=== PATIENT | male | born 1935 | race Caucasian/White ===

== ENCOUNTER → 2019-03-26 | Outpatient (CLI) | payer OTHER ==
--- NOTE | 2019-03-26 14:07 | Diagnostic Imaging Report ---
INDICATION: Wheezing. TECHNIQUE: Frontal chest obtained at 12:44 p.m. FINDINGS: Heart is borderline in size. Mediastinal silhouette is unremarkable. There is some minimal infiltrate versus scarring in the right lung base. There is no pneumothorax or pleural fluid. IMPRESSION: Minimal infiltrate versus scarring in right lung base. We do not have prior studies for comparison. There is no definitive consolidation or pneumothorax or pleural fluid. Dictated by: Dictated on workstation # [id number]
--- NOTE | 2019-03-26 14:14 | Diagnostic Imaging Report ---
INDICATION: Left knee pain. AP, oblique, and lateral views of the left knee are obtained. FINDINGS: No fracture or acute bony abnormality is seen. There is some patellofemoral spurring and joint space narrowing. There is mild medial and lateral joint space narrowing. IMPRESSION: Degenerative findings of the left knee with no acute-appearing bony abnormality. Dictated by: Dictated on workstation # [id number]
--- NOTE | 2019-03-26 14:36 | Diagnostic Imaging Report ---
INDICATION: Fall with left hip pain. AP and oblique views of the left hip are obtained. FINDINGS: No fracture or acute bony abnormality is seen. There is severe osteoarthritic change of the left hip with severe joint space narrowing with izic-cf-giff contact, subchondral sclerosis, and femoral head deformity. IMPRESSION: Severe osteoarthritic change of left hip as described above. No acute abnormality. Dictated by: Dictated on workstation # [id number]
== END ==
LOC: RAD 12:10
PROVIDERS: ATTEND Family Medicine
DX: J44.9 Chronic obstructive pulmonary disease, unspecified (principal); M16.12 Unilateral primary osteoarthritis, left hip; M17.12 Unilateral primary osteoarthritis, left knee; W19.XXXA Unspecified fall, initial encounter
CPT/HCPCS: 71045; 73502; 73562

== ENCOUNTER → 2019-04-15 | Outpatient (CLI) | payer OTHER ==
--- NOTE | 2019-04-15 16:54 | Diagnostic Imaging Report ---
INDICATION: COPD and shortness of breath. TECHNIQUE/COMPARISON: PA and lateral films of the chest were obtained at 4:39 PM and compared to 03/26/2019. FINDINGS: The heart is top limits of normal in size. The mediastinal silhouette is unremarkable. The lungs show no focal infiltrate. There is no pneumothorax or pleural fluid. Chronic changes in the thoracic spine are noted. IMPRESSION: Borderline heart size with no acute process in the chest. No significant change from 03/26/2019. Dictated by: Dictated on workstation # [id number]
== END ==
LOC: RAD 16:14
PROVIDERS: ATTEND Family Medicine
DX: J44.9 Chronic obstructive pulmonary disease, unspecified (principal)
CPT/HCPCS: 71046

== ENCOUNTER 2019-04-25 15:26 | Emergency (ER) | payer MEDICARE, OTHER ==
[~2019-04-25] VITALS: Ht 175.3 cm; Wt 85.7 kg
--- NOTE | 2019-04-25 15:49 | ED Fall/Injury ---
General Stated Complaint: FELL Source: patient Exam Limitations: no limitations History of Present Illness Date Seen by Provider: Apr 25, 2019 Time Seen by Provider: 15:47 Initial Comments To ER from [facility] with reports of a fall. He reached up to grab something and fell. Struck the center of his forehead. No loss of consciousness, skin tear to the dorsal aspect left hand. He is on aspirin but no other antiplatelet or anticoagulant medications. Occurred: just prior to arrival Severity: moderate Associated Symptoms (Fall): Neck Pain Allergies and Home Medications Allergies Coded Allergies: No Known Drug Allergies (Unverified , 04/25/19) Patient Home Medication List Home Medication List Reviewed: Yes Review of Systems Review of Systems Constitutional: see HPI Eyes: No Symptoms Reported Ears, Nose, Mouth, Throat: no symptoms reported Respiratory: no symptoms reported Genitourinary: no symptoms reported Musculoskeletal: no symptoms reported Skin: no symptoms reported Psychiatric/Neurological: No Symptoms Reported Past Zmelend-Kyhwoz-Itdydr Hx Patient Social History Recent Foreign Travel: No Contact w/Someone Who Travel: No Physical Exam Vital Signs Vital Signs - First Documented 04/25/19 15:37 Temp 35.8 Pulse 74 Resp 15 B/P (MAP) 113/90 (98) Pulse Ox 97 O2 Delivery Nasal Cannula O2 Flow Rate 3.00 Capillary Refill : Height, Weight, BMI Height: '" Weight: lbs. oz. kg; BMI Method: General Appearance: WD/WN, no apparent distress HEENT: PERRL/EOMI, normal ENT inspection, other (abrasion to the center of his forehead, superficial skin tears to the dorsal knuckles left hand) Neck: non-tender, full range of motion Respiratory: lungs clear, normal breath sounds, no respiratory distress, no accessory muscle use Gastrointestinal: normal bowel sounds, non tender, soft Extremities: normal range of motion, non-tender Neurologic/Psychiatric: alert, normal mood/affect, oriented x 3 Skin: normal color, warm/dry Because of body habitus was unable to get a rigid cervical collar or a soft cervical collar to fit him, instead we rolled up towels and taped these in place. Meggan Coma Score Best Eye Response: (4) Open Spontaneously Best Verbal Response: (5) Oriented Best Motor Response: (6) Obeys Commands [place] Total: 15 Progress/Results/Core Measures Results/Orders My Orders Orders - TIAGO NOONAN APRN Ct Head/Cervical Spine Wo (04/25/19 15:43) Hand, Left, 3 Views (04/25/19 15:43) Vital Signs/I&O 04/25/19 04/25/19 15:37 18:33 Temp 35.8 Pulse 74 76 Resp 15 15 B/P (MAP) 113/90 (98) 129/62 (98) Pulse Ox 97 97 O2 Delivery Nasal Cannula Nasal Cannula O2 Flow Rate 3.00 3.00 Departure Communication (Admissions) Patient is also at [facility] and rehabilitation under skilled status, he has about 40 days left, patient's children are concerned about disposition once those days have . We'll write a consult for dialysis social worker to evaluate for permanent long-term placement. Spoke with the patient's nurse at the long-term, will write an order to continue physical therapy and occupational therapy as tolerated, up with assistance only--she states that he is already up with assistance only. We will have him follow-up with Dr. Carrasquillo in the upcoming weeks, he'll be sent home with an [place] collar which is in place currently. This decision was made after discussing with Dr. Carrasquillo the images, they were reviewed by him as well. He states that the anterior approcah for screw placement would be difficult given the patient's degree of degenerative changes in the neck. If anything surgical were to be done it would need to be a posterior occipito-cervical fusion wiht plate from the base of the skull to the C1 to C3 range. I discussed this with the patient, Dr. Carrasquillo advised that that procedure would need to be done at [facility] if the patient desired surgical repair. However the patient and his adult son at the bedside agree with just a semirigid collar and nonoperative management at this point. He denies any paresthesias tingling or numbness. States the pain in his neck is "not bad". Impression Primary Impression: Closed dens fracture Qualified Codes: S12.100A - Unspecified displaced fracture of second cervical vertebra, initial encounter for closed fracture Additional Impression: Skin abrasion Disposition: HOME, SELF-CARE Condition: Stable Departure-Patient Inst. Decision time for Depature: 17:28 Referrals: NO,LOCAL PHYSICIAN (PCP) Primary Care Physician Patient Instructions: Cervical Immobilizers Add. Discharge Instructions: 1. Wear the collar at all times until you follow-up with Dr. Carrasquillo and then wear the collar per his discretion. Call his office on Sunday to make an appointment to be seen in the upcoming few weeks whenever he can get you in (he is usually booked out many weeks which is oK)Address: Dr Jose Carrasquillo [facility], [address] [place] [address], [address] [place] [address] Hours: Closed ? Opens 8AM Mon Copy Copies To 1: MEE HAYNES PETER J APRN Apr 25, 2019 15:49
--- NOTE | 2019-04-25 16:26 | Diagnostic Imaging Report ---
INDICATION: Pain status post fall with injury. COMPARISON: None. FINDINGS: Three views of the left hand were obtained and show no fractures, dislocations, or other acute bony abnormalities. Moderate osteoarthritic changes are noted, particularly involving the first carpometacarpal joint space. Otherwise, joint spaces are maintained. The soft tissues appear unremarkable. No radiopaque foreign bodies are identified. IMPRESSION: Moderate osteoarthritic changes, but no evidence of acute fracture or dislocation of the left hand. Dictated by: Dictated on workstation # [id number]
--- NOTE | 2019-04-25 16:31 | Diagnostic Imaging Report ---
PROCEDURE: CT head and CT cervical spine without contrast. TECHNIQUE: Multiple contiguous axial images were obtained through the brain and cervical spine without the use of intravenous contrast. Sagittal and coronal reformations through the cervical spine were then performed. Auto Exposure Controls were utilized during the CT exam to meet ALARA standards for radiation dose reduction. INDICATION: Fall. Scalp contusion. Head and neck pain. COMPARISON: None. FINDINGS: CT head: No large acute territorial ischemia, mass, or hemorrhage. Chronic microvascular disease is seen in the periventricular and subcortical white matter. The ventricles and cortical sulci are prominent, consistent with generalized volume loss. The basilar cisterns are patent and unremarkable. The calvarium is intact. Retained secretions are seen in the maxillary sinuses. The mastoid air cells are well pneumatized. CT cervical spine: A fracture is visualized involving the base of the dens. There is approximately 30 degrees of angulation of the fracture fragment posteriorly into the spinal canal. No significant spinal canal stenosis is seen. No other fractures are visualized in the cervical spine. Multilevel degenerative changes are present in the cervical spine with marginal osteophytes, disc height loss and desiccation, and uncovertebral arthropathy. The soft tissues of the neck are unremarkable. The included lung apices are clear. IMPRESSION: 1. No hemorrhage or focal intra-axial mass. No CT evidence of large acute territorial ischemia. 2. Acute fracture involving the base of the dens, representing type II dens fracture. There is associated 30 degrees of posterior angulation of the fracture fragment without significant spinal canal stenosis. 3. Chronic microvascular disease with generalized parenchymal volume loss. 4. Multilevel degenerative changes in the cervical spine. Findings were discussed with Pedro Christianson at 4:27 PM on 04/25/[address] Loy Ortiz. Dictated by: Dictated on workstation # [id number]
[2019-04-25 18:33] VITALS: BP 129/62
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
== END 2019-04-25 18:33 | disposition home or self-care (01) ==
LOC: EDUNIT# 15:26 → ER 15:27
DX: S12.112A Nondisplaced Type II dens fracture, initial encounter for closed fracture (principal); S61.412A Laceration without foreign body of left hand, initial encounter; S00.81XA Abrasion of other part of head, initial encounter; R40.2142 Coma scale, eyes open, spontaneous, at arrival to emergency department; R40.2252 Coma scale, best verbal response, oriented, at arrival to emergency department; R40.2362 Coma scale, best motor response, obeys commands, at arrival to emergency department; W19.XXXA Unspecified fall, initial encounter
CPT/HCPCS: 70450; 72125; 73130

== ENCOUNTER 2019-05-30 00:44 | Inpatient (IN) | payer MEDICARE, OTHER ==
[2019-05-30] VITALS (38 sets, daily range): BP systolic 81–134; BP diastolic 34–78
[~2019-05-30] VITALS: Ht 175 cm; Wt 80.1 kg
--- NOTE | 2019-05-30 00:45 | NUR ---
PT TO E.D. BY EMS C/O INCREASED SOA TONIGHT. STARTED ON AZITHROMYCIN APPROX. 3 DAYS AGO WITHOUT IMPROVEMENT. PT WITH NOTED INCREASED WORK OF BREATHING. ERP. AT BEDSIDE.
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
[2019-05-30] MEDS ORDERED: NS IV 1000 ML 1,000 ML IV SCH (00:54)
[2019-05-30] MEDS ORDERED: NS IV 500 ML 500 ML IV ONE (00:54)
[2019-05-30] MEDS ORDERED: VANCOMYCIN INJECTION 1,000 MG in NS (IVPB) 250 ML IV ONE (01:00)
[2019-05-30] MEDS ORDERED: CEFEPIME INJECTION 1,000 MG in WATER (STERILE) FOR INJECTION 10 ML IV ONE (01:00)
[2019-05-30] MEDS ORDERED: RT-ALBUTEROL/IPRATROPIUM 3 ML (DUONEB) VIAL INH ONE (01:00)
[2019-05-30 01:10] LABS: ABG BASE EXCESS 7.7 MMOL/L (-2.5-2.5); ABG OXYGEN SATURATION 98 % (94-100); ABG PO2 117 MMHG (79-93); ABG TCO2 35.8 MMOL/L (21.0-31.0)
[2019-05-30] MEDS: NS IV 1000 ML 1,000 ML IV SCH ×5 (01:10→17:39)
[2019-05-30 01:14] LABS: ABG PCO2 73 MMHG (35-45); ALLENS TEST YES-POS; INSPIRED O2 3L; VENTILATOR NO
--- NOTE | 2019-05-30 01:14 | ED Respiratory ---
General Stated Complaint: RESPIRATORY DISTRESS & FEVER Source: patient, EMS, [facility] records Exam Limitations: clinical condition History of Present Illness Date Seen by Provider: May 30, 2019 Time Seen by Provider: 00:53 Initial Comments Patient presents to ER via EMS from [facility] with chief complaint of about a week of shortness of breath, increased worker breathing. He was seen by primary care recently and started on azithromycin. He is not on ster oids. He has a history of COPD oxygen dependent on 2-3 L per nasal cannula. Oxygen sats were in the 90s per EMS. Unknown if he's had a chest x-ray or labs. One month ago he had a fall resulting in a dens fracture and was referred to neurosurgery but was not a candidate for surgical repair apparently. He refuses to wear the collar or soft collar. Nursing staff tonight reports that while doing there checks he had increased work of breathing as well as a fever tonight of 100.3 which was negative. Unknown if he had any specific testing at the time he was diagnosed with bronchitis. Nursing staff also reports he had a cough with yellow productive sputum. He said every few months she develops similar symptoms. Typically treated outpatient. Allergies and Home Medications Allergies Coded Allergies: No Known Drug Allergies (Unverified , 04/25/19) Patient Home Medication List Home Medication List Reviewed: Yes Review of Systems Review of Systems Constitutional: chills, fever, malaise EENTM: No ear discharge, No ear pain Respiratory: cough, phlegm, short of breath, wheezing Cardiovascular: No chest pain, No edema, No palpitations Gastrointestinal: No abdominal pain, No nausea, No vomiting Genitourinary: No discharge, No dysuria Musculoskeletal: No back pain, No joint pain Skin: No pruritus, No rash Psychiatric/Neurological: Denies Headache, Denies Numbness All Other Systems Reviewed Negative Unless Noted: Yes Past Tumcddk-Qypern-Bohtqi Hx Patient Social History Alcohol Use: Denies Use Recreational Drug Use: No Smoking Status: Never a Smoker Recent Hopitalizations: No Immunizations Up To Date Tetanus Booster (TDap): More than 5yrs Seasonal Allergies Seasonal Allergies: No Past Medical History Surgeries: Yes (skin cancer removed from lip) Respiratory: Yes COPD Cardiac: Yes Hypertension Neurological: No Genitourinary: Yes Renal Failure Gastrointestinal: Yes Abdominal Hernia Musculoskeletal: Yes (osteroarthitis, spinal stenosis) Chronic Back Pain Endocrine: No HEENT: Yes Hearing Impairment: Hard of Hearing Cancer: Yes Skin Did You Recieve Any Treatments: Yes What Type of Treatment Did You: Surgical Intervention Psychosocial: No Physical Exam Vital Signs - First Documented 05/30/19 00:45 Temp 38.4 Pulse 96 Resp 26 B/P (MAP) 111/67 (82) Pulse Ox 95 O2 Delivery Nasal Cannula O2 Flow Rate 3.00 Capillary Refill : Height: '" Weight: lbs. oz. kg; 27.00 BMI Method: General Appearance: moderate distress, other (disheveled) Eyes: Bilateral Eye PERRL, Bilateral Eye EOMI, Bilateral Eye Other (Bilateral mattering mild) HEENT: PERRL/EOMI, normal ENT inspection, TMs normal, other (Dry oral mucosa) Neck: non-tender, full range of motion, normal inspection Respiratory: chest non-tender, respiratory distress (Moderate with increased worker breathing), decreased breath sounds, accessory muscle use ([id number]) Cardiovascular: regular rate, rhythm, no edema, no murmur, tachycardia Gastrointestinal: normal bowel sounds, non tender, soft, other (Ventral hernia) Extremities: normal range of motion, normal inspection, no pedal edema, normal capillary refill Neurologic/Psychiatric: no motor/sensory deficits, alert, normal mood/affect, other (Oriented to person) Skin: normal color, warm/dry Focused Exam Lactate Level 05/30/19 00:50: Lactic Acid Level 0.79 Lactic Acid Level Laboratory Tests Test 05/30/19 00:50 Lactic Acid Level 0.79 MMOL/L (0.50-2.00) Procedures/Interventions Lumen: triple Central Line Procedure: betadine prep (chlorhexidine), sterile drapes applied, sterile dressing applied Position: internal jugular (R) Anesthesia: Lidocaine (1% without lidocaine 3 cc) Volume Anesthetic (ccs): 3 Complications: none Post Position: sutured, good blood return, position confirmed w/ CXR Site was cleaned thoroughly using chlorhexidine and draped in usual sterile fashion. Everybody is wearing appropriate sterile gown, gloves, headgear, face mask. Using ultrasound guidance we were able to easily introducer needle into his right IJ which was plump. We got good blood return and passed a guidewire easily on first attempt. Query made a small dary in the skin using the supplied 11 blades. We removed the needle and placed the dilator over the guidewire and then removed dilator. We then ran the central lumen of the triple lumen catheter over the guidewire had previously been flushed with sterile saline. We removed the guidewire stitched in place at about 14 cm and applied the sterile dressing from the kit. Patient tolerated procedure well. Minimal blood loss. Reason for Intubation: REsp fail CO2 and O2 Date of ETT Placement: May 30, 2019 Time of ETT Placement: 02:16 Intubation Method: orotracheal Tube Size: 8.0 Medications: Etomidate (20 mg), Rocuronium (50 mg) Positive End Tide CO2: Yes Breath Sounds after Intubation: bilateral-equal Intubation Complications: no complications Post Intubation Xray: Yes appears low. Subsequent x-ray in good position We explained the reasoning for intubation after attempting to treat him with BiPAP unsuccessfully. Patient acknowledged by nodding his head yes. He had a ron nce to speak briefly his over the phone. We then push etomidate followed by rocuronium. We have suctioned his oropharynx and then using a cane vision and an 8.0 ET tube placed the ET tube across the vocal cords on first attempt. We inflated the bulb and using a bag valve mask his exhalation and the tube as well as change the colorimetric paper. Patient's oxygen sats were 97% when we initiated intubation and 98% after intubation. Bilateral, symmetric breath sounds were heard over both lungs and no breath sounds were heard over the epigastric region. Patient tolerated procedure well. Propofol was initiated. ABG was ordered for 30 minutes later. Initial chest x-ray demonstrated the radiopaque line of the ET tube was very close the juan manuel so we redrew it from 23 at the gumline to 21 cm. Repeat chest x-ray then demonstrated 2 to 3 cm above the juan manuel which was good position. Progress/Results/Core Measures Suspected Sepsis SIRS Temperature: Pulse: Respiratory Rate: Laboratory Tests 05/30/19 00:50: White Blood Count 14.3H Blood Pressure / Mean: 05/30/19 00:50: Lactic Acid Level 0.79 Laboratory Tests 05/30/19 00:50: Creatinine 1.56H, INR Comment 1.4, Platelet Count 419H, Total Bilirubin 0.4 Results/Orders Lab Results Laboratory Tests Test 4/17/20 00:50 05/30/19 01:03 05/30/19 01:45 05/30/19 02:48 Range/Units White Blood Count 14.3 H 4.3-11.0 10^3/uL Red Blood Count 3.24 L 4.35-5.85 10^6/uL Hemoglobin 9.1 L 13.3-17.7 G/DL Hematocrit 30 L 40-54 % Mean Corpuscular Volume 91 80-99 FL Mean Corpuscular Hemoglobin 28 25-34 PG Mean Corpuscular Hemoglobin Concent 31 L 32-36 G/DL Red Cell Distribution Width 14.9 H 10.0-14.5 % Platelet Count 419 H 130-400 10^3/uL Mean Platelet Volume 9.8 7.4-10.4 FL Neutrophils (%) (Auto) 75 42-75 % Lymphocytes (%) (Auto) 11 L 12-44 % Monocytes (%) (Auto) 12 0-12 % Eosinophils (%) (Auto) 2 0-10 % Basophils (%) (Auto) 0 0-10 % Neutrophils # (Auto) 10.7 H 1.8-7.8 X 10^3 Lymphocytes # (Auto) 1.5 1.0-4.0 X 10^3 Monocytes # (Auto) 1.7 H 0.0-1.0 X 10^3 Eosinophils # (Auto) 0.3 0.0-0.3 10^3/uL Basophils # (Auto) 0.0 0.0-0.1 10^3/uL Erythrocyte Sedimentation Rate 35 H 0-30 MM/HR Prothrombin Time 17.3 H 12.2-14.7 SEC INR Comment 1.4 0.8-1.4 Activated Partial Thromboplast Time 35 24-35 SEC D-Dimer 3.82 H 0.00-0.49 UG/ML Blood Gas Puncture Site LEFT RADIAL RIGHT RADIAL Blood Gas Patient Temperature 38.6 38 Arterial Blood pH 7.30 *L 7.26 *L 7.37-7.43 Arterial Blood Partial Pressure CO2 73 *H 72 *H 35-45 MMHG Arterial Blood Partial Pressure O2 117 H 39 *L 79-93 MMHG Arterial Blood HCO3 34 H 31 H 23-27 MMOL/L Arterial Blood Total CO2 35.8 H 32.8 H 21.0-31.0 MMOL/L Arterial Blood Oxygen Saturation 98 51 L 94-100 % Arterial Blood Base Excess 7.7 H 4.3 H -2.5-2.5 MMOL/L Butch Test YES-POS P Blood Gas Ventilator Setting NO YES Blood Gas Inspired Oxygen 3L 3L Sodium Level 136 135-145 MMOL/L Potassium Level 5.4 H 3.6-5.0 MMOL/L Chloride Level 96 L 98-107 MMOL/L Carbon Dioxide Level 30 21-32 MMOL/L Anion Gap 10 5-14 MMOL/L Blood Urea Nitrogen 51 H 7-18 MG/DL Creatinine 1.56 H 0.60-1.30 MG/DL Estimat Glomerular Filtration Rate 43 BUN/Creatinine Ratio 33 Glucose Level 103 70-105 MG/DL Lactic Acid Level 0.79 0.50-2.00 MMOL/L Calcium Level 9.0 8.5-10.1 MG/DL Corrected Calcium 10.0 8.5-10.1 MG/DL Total Bilirubin 0.4 0.1-1.0 MG/DL Aspartate Amino Transf (AST/SGOT) 38 H 5-34 U/L Alanine Aminotransferase (ALT/SGPT) 26 0-55 U/L Alkaline Phosphatase 69 40-136 U/L Lactate Dehydrogenase 211 125-220 U/L C-Reactive Protein High Sensitivity 23.12 H 0.00-0.50 MG/DL B-Type Natriuretic Peptide 167.3 H <100.0 PG/ML Total Protein 5.8 L 6.4-8.2 GM/DL Albumin 2.8 L 3.2-4.5 GM/DL Procalcitonin 0.32 H <0.10 NG/ML Urine Color YELLOW Urine Clarity CLEAR Urine pH 5.0 5-9 Urine Specific [place] 1.020 1.016-1.022 Urine Protein NEGATIVE NEGATIVE Urine Glucose (UA) NEGATIVE NEGATIVE Urine Ketones NEGATIVE NEGATIVE Urine Nitrite NEGATIVE NEGATIVE Urine Bilirubin NEGATIVE NEGATIVE Urine Urobilinogen 1.0 < = 1.0 MG/DL Urine Leukocyte Esterase NEGATIVE NEGATIVE Urine RBC (Auto) NEGATIVE NEGATIVE Urine RBC NONE /HPF Urine WBC NONE /HPF Urine Squamous Epithelial Cells NONE /HPF Urine Crystals NONE /LPF Urine Bacteria NEGATIVE /HPF Urine Casts PRESENT /LPF Urine Hyaline Casts 2-5 H /LPF Urine Mucus LARGE H /LPF Urine Culture Indicated CULTURE PENDING Test 05/30/19 02:52 Range/Units Blood Gas Puncture Site LEFT RADIAL Blood Gas Patient Temperature 38 Arterial Blood pH 7.32 *L 7.37-7.43 Arterial Blood Partial Pressure CO2 54 H 35-45 MMHG Arterial Blood Partial Pressure O2 87 79-93 MMHG Arterial Blood HCO3 27 23-27 MMOL/L Arterial Blood Total CO2 28.2 21.0-31.0 MMOL/L Arterial Blood Oxygen Saturation 95 94-100 % Arterial Blood Base Excess 1.4 -2.5-2.5 MMOL/L Butch Test P Blood Gas Ventilator Setting YES Blood Gas Inspired Oxygen 50% Micro Results Microbiology 05/30/19 Influenza Types A,B Antigen (LEANN) - Final, Complete My Orders Orders - BRIGETTE MALHOTRA Cbc With Automated Diff (05/30/19 00:54) Comprehensive Metabolic Panel (05/30/19 00:54) Blood Culture (05/30/19 00:54) Sputum Culture (05/30/19 00:54) Urinalysis (05/30/19 00:54) Urine Culture (05/30/19 00:54) Protime With Inr (05/30/19 00:54) Partial Thromboplastin Time (05/30/19 00:54) Chest 1 View, Ap/Pa Only (05/30/19 00:54) Ed Iv/Invasive Line Start (05/30/19 00:54) Ed Iv/Invasive Line Start (05/30/19 00:54) Vital Signs Adult Sepsis Patie Q15M (05/30/19 00:54) O2 (05/30/19 00:54) Remove Rings In Anticipation O (05/30/19 00:54) Lactic Acid Analyzer (05/30/19 00:54) Influenza A And B Antigens (05/30/19 00:54) Ns Iv 1000 Ml (Sodium Chloride 0.9%) (05/30/19 00:54) Cefepime Injection (Maxipime Injection) (05/30/19 01:00) Vancomycin Injection (Vancomycin Injecti (05/30/19 01:00) Vancomycin Injection (Vancomycin Injecti (05/30/19 02:00) Ed Iv/Invasive Line Start (05/30/19 00:54) Ns Iv 500 Ml (Sodium Chloride 0.9%) (05/30/19 00:54) Ns Iv 1000 Ml (Sodium Chloride 0.9%) (05/30/19 00:54) Albuterol/Ipra Inhalation Soln (Duoneb I (05/30/19 01:00) Svn Small Volume Nebulizer (05/30/19 00:54) Arterial Blood Gas (05/30/19 00:54) Bipap (Bilevel) Set Up (05/30/19 00:54) Fibrin Degradation Products (05/30/19 00:54) Procalcitonin (Pct) (05/30/19 00:54) Hs C Reactive Protein (05/30/19 00:54) Erythrocyte Sedimentation Rate (05/30/19 00:54) LDH (05/30/19 00:54) Coronavirus Sars-Cov-2 So 2019 (05/30/19 00:54) Covid-19 Suspect Update (05/30/19 00:54) Ct Angio Chest W (05/30/19 01:29) BNP (05/30/19 01:34) Arterial Blood Gas (05/30/19 01:53) Propofol Drip (Icu) (Diprivan Drip (Icu) (05/30/19 01:59) Arterial Blood Gas (05/30/19 02:51) Propofol Drip (Icu) (Diprivan Drip (Icu) (05/30/19 03:27) Medications Given in ED Current Medications Medications Dose Ordered Sig/Batool Route Start Time Stop Time Status Last Admin Dose Admin Cefepime HCl 1000 mg/Sterile Water 10 ml @ 200 mls/hr ONCE ONCE IV 05/30/19 01:00 05/30/19 01:03 DC 05/30/19 01:10 200 MLS/HR Propofol 100 ml @ ud STK-MED ONCE IV 05/30/19 01:59 05/30/19 02:07 DC 05/30/19 02:20 8.2 MLS/HR Sodium Chloride 500 ml @ 0 mls/hr Q0M ONCE IV 05/30/19 00:54 05/30/19 01:03 DC 05/30/19 02:15 0 MLS/HR Vancomycin HCl 750 mg/Sodium Chloride 250 ml @ 250 mls/hr ONCE ONCE IV 05/30/19 02:00 05/30/19 02:59 DC 05/30/19 02:15 250 MLS/HR Vancomycin HCl 1000 mg/Sodium Chloride 250 ml @ 250 mls/hr ONCE ONCE IV 05/30/19 01:00 05/30/19 01:59 DC 05/30/19 01:15 250 MLS/HR Vital Signs/I&O 05/30/19 05/30/19 05/30/19 05/30/19 00:45 00:45 01:00 01:15 Temp 38.4 Pulse 96 96 96 Resp 26 24 24 B/P (MAP) 111/67 (82) 108/54 (72) 90/53 (65) Pulse Ox 95 95 96 96 O2 Delivery Nasal Cannula Nasal Cannula Nasal Cannula Nasal Cannula O2 Flow Rate 3.00 3.00 3.00 3.00 05/30/19 05/30/19 05/30/19 05/30/19 01:30 01:45 02:05 02:15 Temp 38.0 Pulse 111 101 98 100 Resp 22 24 22 24 B/P (MAP) 109/78 (88) 85/61 (69) 92/67 (75) 103/54 (70) Pulse Ox 95 96 98 97 05/30/19 05/30/19 05/30/19 05/30/19 02:20 02:30 02:45 03:00 Temp 37.6 Pulse 107 100 105 108 Resp 24 24 24 B/P (MAP) 119/57 119/57 (77) 123/69 (87) 134/68 (90) Pulse Ox 99 100 99 O2 Delivery Mechanical Ventilator Mechanical Ventilator Mechanical Ventilator O2 Flow Rate 50.00 50.00 05/30/19 03:13 Temp 37.9 Pulse 108 Resp 24 B/P (MAP) 134/68 Pulse Ox 99 O2 Delivery Mechanical Ventilator Capillary Refill : Progress Note : Time: 01:17 Progress Note Septic workup, COVID-19 influenza testing. 2500 cc for 30 mL/kg. Put him on BiPAP 5/15. ABG obtained shows CO2 of 72 and pH of 7.3. Plan to recheck in about 30 minutes and if it's not improving. We may consider intubation. Diagnostic Imaging Diagonstic Imaging: Xray Plain Films/CT/US/NM/MRI: chest Comments Patchy infiltrates bilateral. More concentrated infiltrate right lower lobe. Reviewed: Reviewed by Me Diagonstic Imaging: Xray Plain Films/CT/US/NM/MRI: chest Comments Interval placement of central catheter with the distal tip terminating and over the shadow of the superior vena cava just proximal to the right atria in good p osition. Difficult to see the ET tube but it does appear to be close to the juan manuel and needs withdrawn about 2-3 cm. Reviewed: Reviewed by Me Diagonstic Imaging: Xray Plain Films/CT/US/NM/MRI: chest Comments Repeat chest x-ray shows ET tube in good position 237 m above the juan manuel. Reviewed: Reviewed by Me Diagonstic Imaging: CT (angiogram) Plain Films/CT/US/NM/MRI: chest Reviewed: Reviewed by Me Critical Care Note Critical Care Start Time: 01:50 Stop Time: 03:00 Total Time (minutes) 70m Progress Patient acute respiratory distress. Initial ABG shows respiratory acidosis. We attempted valiantly to use BiPAP with high pressure and were unsuccessful in improving his CO2 and the patient continued wear himself outside for about 30 minute trial we initiated and intubation. Patient tolerated intubation well his oxygen demand improved and he produced a better ABG within just 30 minutes. Patient was then transferred to CT angiogram and from there to the ICU. Departure Communication (Admissions) Time/Spoke to Admitting Phy: 03:51 Discussed the case with Dr. Alvarenga and she agrees with plan. Impression Primary Impression: Acute respiratory failure with hypoxia and hypercapnia Additional Impressions: Atypical pneumonia COPD with exacerbation Disposition: ADMITTED INPATIENT Condition: Critical Admissions Decision to Admit Reason: Admit from ER (General) Decision to Admit/Date: May 30, 2019 Time/Decision to Admit Time: 01:19 Departure-Patient Inst. Referrals: MEE HAYNES DO (PCP/Family) Primary Care Physician BRIGETTE MALHOTRA May 30, 2019 01:14
[2019-05-30 01:15] LABS: BASOPHILS % (AUTO) 0 % (0-10); EOSINOPHILS # (AUTO) 0.3 10^3/uL (0.0-0.3); EOSINOPHILS % (AUTO) 2 % (0-10); HEMATOCRIT 30 % (40-54); HEMOGLOBIN 9.1 G/DL (13.3-17.7); LYMPHOCYTES # (AUTO) 1.5 X 10^3 (1.0-4.0); LYMPHOCYTES % (AUTO) 11 % (12-44); MEAN CORPUSCULAR HEMOGLOBIN 28 PG (25-34); MEAN CORPUSCULAR HGB CONC 31 G/DL (32-36); MEAN CORPUSCULAR VOLUME 91 FL (80-99); MEAN PLATELET VOLUME 9.8 FL (7.4-10.4); MONOCYTES # (AUTO) 1.7 X 10^3 (0.0-1.0); MONOCYTES % (AUTO) 12 % (0-12); NEUTROPHILS # (AUTO) 10.7 X 10^3 (1.8-7.8); NEUTROPHILS % (AUTO) 75 % (42-75); PATIENT TEMP 38.6; PLATELET COUNT 419 10^3/uL (130-400); RED CELL DISTRIBUTION WIDTH 14.9 % (10.0-14.5); WHITE BLOOD COUNT 14.3 10^3/uL (4.3-11.0)
[2019-05-30 01:18] LABS: ALBUMIN 2.8 GM/DL (3.2-4.5); POTASSIUM 5.4 MMOL/L (3.6-5.0)
[2019-05-30 01:21] LABS: TOTAL PROTEIN 5.8 GM/DL (6.4-8.2)
[2019-05-30 01:22] LABS: BILIRUBIN,TOTAL 0.4 MG/DL (0.1-1.0)
[2019-05-30 01:24] LABS: CREATININE SERUM 1.56 MG/DL (0.60-1.30)
[2019-05-30 01:38] LABS: FIBRIN DEGRADATION PRODUCTS 3.82 UG/ML (0.00-0.49); INR 1.4 (0.8-1.4); PROTHROMBIN TIME PATIENT 17.3 SEC (12.2-14.7)
[2019-05-30 01:41] LABS: ERYTHROCYTE SEDIMENTATION RATE 35 MM/HR (0-30)
[2019-05-30] MEDS ORDERED: PROPOFOL DRIP (ICU) 100 ML IV ONE ×2 (01:59→03:27)
[2019-05-30] MEDS ORDERED: VANCOMYCIN INJECTION 750 MG in NS (IVPB) 250 ML IV ONE (02:00)
--- NOTE | 2019-05-30 02:00 | NUR ---
DECISION TO INTUBATE MADE BY ERP. DR MALHOTRA SPOKE WITH PT ET. HIS ON PHONE.
[2019-05-30 02:04] LABS: ABG BASE EXCESS 4.3 MMOL/L (-2.5-2.5); ABG OXYGEN SATURATION 51 % (94-100); ABG TCO2 32.8 MMOL/L (21.0-31.0)
[2019-05-30 02:06] LABS: ABG PH 7.26 (7.37-7.43)
[2019-05-30 02:08] LABS: ABG PCO2 72 MMHG (35-45); ABG PO2 39 MMHG (79-93)
[2019-05-30 02:09] LABS: ALLENS TEST P; INSPIRED O2 3L; VENTILATOR YES
[2019-05-30 02:10] LABS: PATIENT TEMP 38
--- NOTE | 2019-05-30 02:15 | NUR ---
20MG ETOMIDATE GIVEN 0216-50MG SUCCINYLCHOLINE GIVEN. 0219- PT INTUBATED BY ERP. 8.0 OETT 23CM AT GUMS X 1 ATTEMPT. + BREATH SOUNDS BILATERALLY, COLOR CHANGE ON CO2 DETECTOR. 0224- OG TUBE PLACED. 0248- RIJTL PLACED
[2019-05-30 03:00] LABS: ABG BASE EXCESS 1.4 MMOL/L (-2.5-2.5); ABG OXYGEN SATURATION 95 % (94-100); ABG PCO2 54 MMHG (35-45); ABG PO2 87 MMHG (79-93); ABG TCO2 28.2 MMOL/L (21.0-31.0)
[2019-05-30 03:02] LABS: ABG PH 7.32 (7.37-7.43)
[2019-05-30 03:03] LABS: BILIRUBIN,URINE NEGATIVE (NEGATIVE); CLARITY,URINE CLEAR; COLOR,URINE YELLOW; GLUCOSE, URINE (UA) NEGATIVE (NEGATIVE); KETONES,URINE NEGATIVE (NEGATIVE); LEUKOCYTE ESTERASE ,URINE NEGATIVE (NEGATIVE); NITRITE,URINE NEGATIVE (NEGATIVE); PROTEIN,URINE NEGATIVE (NEGATIVE)
[2019-05-30 03:03] LABS: ALLENS TEST P
[2019-05-30 03:04] LABS: INSPIRED O2 50%; PATIENT TEMP 38; VENTILATOR YES
[2019-05-30 03:12] LABS: BACTERIA,URINE NEGATIVE /HPF
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
[2019-05-30] MEDS ORDERED: ACETAMINOPHEN 325 MG TABLET PO PRN (04:30)
[2019-05-30] MEDS ORDERED: ONDANSETRON 4 MG/2 ML (SDV) Z0FRAN IV PRN (04:30)
[2019-05-30] MEDS ORDERED: PROPOFOL DRIP (ICU) 100 ML IV SCH (04:30)
[2019-05-30] MEDS ORDERED: EPINEPHrine 1 MG INJECTION 2 MG in NS (IVPB) 250 ML IV SCH (04:30)
[2019-05-30] MEDS ORDERED: IOHEXOL 350 MG/ML 100 ML (OMNIPAQUE 350) VIAL IV ONE (04:45)
--- NOTE | 2019-05-30 04:52 | NUR ---
RT IN COVID ED FROM 44 TO 314 WHEN PT WAS MOVED TO CT WITHOUT INCIDENT, PT THEN TAKEN TO CU 5, PLACED ON VENT
[2019-05-30 05:16] LABS: PHOSPHORUS 4.5 MG/DL (2.3-4.7)
[2019-05-30 05:18] LABS: MAGNESIUM 2.1 MG/DL (1.6-2.4)
[2019-05-30] MEDS: POTASSIUM CL 10MEQ/50ML IVPB 50 ML IV SCH (05:37)
[2019-05-30] MEDS: MAGNESIUM 1 GM/100 ML IVPB 100 ML IV SCH (05:37)
[2019-05-30] MEDS: KCL 20 MEQ TAB (K-DUR) PO SCH (05:37)
[2019-05-30] MEDS: VASOPRESSIN INJECTION 20 UNIT in NORMAL SALINE 100 ML IV SCH ×3 (05:37→21:56)
[2019-05-30] MEDS ORDERED: inSUlin ASPART (NovoLOG) 1 UNIT/0.01 ML (CHARGE PER UNIT) SQ PRN (06:00)
[2019-05-30] MEDS: NOREPINEPHRINE 4 MG/250 ML 250 ML IV SCH ×3 (06:17→19:53)
--- NOTE | 2019-05-30 06:38 | Pulmonary Consultation ---
History of Present Illness History of Present Illness Date Seen by Provider: May 30, 2019 Time Seen by Provider: 06:33 Date of Admission History of Present Illness 83yo presented from ECF secondary to worsening SOB Allergies and Home Medications Allergies Coded Allergies: No Known Drug Allergies (Unverified , 04/25/19) Past Vbryctl-Ueqles-Twopbh Hx Patient Social History Alcohol Use: Denies Use Recreational Drug Use: No Smoking Status: Never a Smoker Recent Foreign Travel: No Contact w/Someone Who Travel: No Recent Infectious Disease Expo: No Recent Hopitalizations: No Physical Abuse: No Sexual Abuse: No Mistreated: No Fear: No Immunizations Up To Date Tetanus Booster (TDap): More than 5yrs Seasonal Allergies Seasonal Allergies: No Past Medical History Surgeries: Yes (skin cancer removed from lip) Respiratory: Yes COPD Cardiac: Yes Hypertension Neurological: No Genitourinary: Yes Renal Failure Gastrointestinal: Yes Abdominal Hernia Musculoskeletal: Yes (osteroarthitis, spinal stenosis) Chronic Back Pain Endocrine: No HEENT: Yes Hearing Impairment: Hard of Hearing Cancer: Yes Skin Did You Recieve Any Treatments: Yes What Type of Treatment Did You: Surgical Intervention Psychosocial: No Integumentary: No Sepsis Event Evaluation Height, Weight, BMI Height: '" Weight: lbs. oz. kg; 27.00 BMI Method: Exam Exam Vital Signs Date Time Temp Pulse Resp B/P (MAP) Pulse Ox O2 Delivery O2 Flow Rate FiO2 05/30/19 06:17 86 108/54 05/30/19 05:45 83 24 81/44 (56) 100 Mechanical Ventilator 70.00 05/30/19 05:15 88 20 83/72 (76) 98 Mechanical Ventilator 70.00 05/30/19 04:45 90 18 102/34 (56) 96 Mechanical Ventilator 70.00 05/30/19 04:43 92 96 100.00 05/30/19 04:30 95 19 84/76 (79) 100 Mechanical Ventilator 70.00 05/30/19 04:30 93 136/67 05/30/19 04:15 98 24 99/62 (74) 98 Mechanical Ventilator 70.00 05/30/19 04:00 99 20 118/54 (75) 100 Mechanical Ventilator 70.00 05/30/19 03:42 100 05/30/19 03:13 37.9 108 24 134/68 99 Mechanical Ventilator 05/30/19 03:00 37.6 108 24 134/68 (90) 99 Mechanical Ventilator 05/30/19 02:45 105 24 123/69 (87) 100 Mechanical Ventilator 50.00 05/30/19 02:30 100 24 119/57 (77) 99 Mechanical Ventilator 50.00 05/30/19 02:20 107 119/57 05/30/19 02:15 100 24 103/54 (70) 97 05/30/19 02:15 105 44 96 60 05/30/19 02:05 98 22 92/67 (75) 98 05/30/19 01:45 38.0 101 24 85/61 (69) 96 05/30/19 01:30 111 22 109/78 (88) 95 05/30/19 01:15 96 24 90/53 (65) 96 Nasal Cannula 3.00 05/30/19 01:00 96 24 108/54 (72) 96 Nasal Cannula 3.00 05/30/19 00:45 38.4 96 26 111/67 (82) 95 Nasal Cannula 3.00 05/30/19 00:45 95 Nasal Cannula 3.00 I & O 05/30/19 07:00 Intake Total 3010 ml Output Total 325 ml Balance 2685 ml Height & Weight Height: '" Weight: lbs. oz. kg; 27.00 BMI Method: Capillary Refill: Less Than 3 Seconds Gastrointestinal: normal bowel sounds, non tender, soft, other (Ventral hernia) Results Lab Laboratory Tests 05/30/19 00:50 Assessment/Plan Assessment/Plan Acute respiratory failure with pneumonia with Severe sepsis - question of aspiration -Change Abx to Vanco, Zosyn and azithromycin d/c cefepime -Burnett cultures pending -influenza is negative -Check RVP -COVID is pending Acute renal failure -IVF -monitor Hypotension -Currently on Levophed -Give another liter bolus of LR Dehydration -IVF Anemia -Monitor KAILEY FROST DO May 30, 2019 06:38
[2019-05-30] MEDS ORDERED: CEFEPIME INJECTION 1,000 MG in WATER (STERILE) FOR INJECTION 10 ML IV SCH (07:00)
[2019-05-30] MEDS ORDERED: ETOMIDATE IV SOLN 20 MG/10 ML VIAL IV ONE (07:07)
[2019-05-30] MEDS ORDERED: ROCURONIUM 10 MG/ML 5 ML SYRINGE IV ONE (07:07)
[2019-05-30] MEDS ORDERED: LACTATED RINGERS 1,000 ML IV SCH (07:15)
--- NOTE | 2019-05-30 07:20 | Diagnostic Imaging Report ---
Indication: Respiratory distress. Compared: 05/30/2019. Findings: Bilateral micronodular pulmonary infiltrates showed no real change. There are small amounts of pleural fluid not obviously changed ET tube is above the juan manuel, some basilar atelectasis. Right IJ at the SVC, OG catheter goes beneath the diaphragm. Impression: No real change in bilateral infiltrates, pleural fluid and support apparatus. Dictated by: Dictated on workstation # [id number]
--- NOTE | 2019-05-30 07:20 | Diagnostic Imaging Report ---
PROCEDURE: CT angiography of the chest with contrast. TECHNIQUE: Multiple contiguous axial images were obtained through the chest after uneventful bolus administration of intravenous contrast. 3D reconstructed CTA MIP acquisitions were also performed. Auto Exposure Controls were utilized during the CT exam to meet ALARA standards for radiation dose reduction. INDICATION: Respiratory distress. FINDINGS: There are no intraluminal pulmonary arterial filling defects. There are no findings of pulmonary arterial embolus. The thoracic aorta is patent and nonaneurysmal. There is a minute right and small left pleural effusions that showed no loculation on the left layering to a 2 cm depth maximal. There is some small subcentimeter hilar mediastinal lymph nodes likely reactive. An ET tube tip is above the juan manuel. Innumerable centrilobular nodules and airspace opacities in the bilateral lungs involve all 5 lobes but favor the lower and dependent distributions, suggestive of infectious bronchiolitis versus a less likely extensive recurrent episodes of aspiration. No pneumothorax. OG catheter extends into the stomach beyond. There is no pneumothorax. No acute soft tissue or osseous chest wall pathology. The visualized upper abdomen nonacute. IMPRESSION: Negative for PE or acute aortic disease, severe 5-lobed central lobular nodular infiltrates favoring infectious bronchiolitis, recurrent aspiration could not be excluded in the appropriate scenario. Small amounts of nonloculated pleural fluid without evidence for abscess or empyema, nonacute aorta, no pneumothorax. ET tube above the juan manuel in good position. Dictated by: Dictated on workstation # [id number]
--- NOTE | 2019-05-30 07:24 | NUR ---
PTD VANCOMYCIN LABS: SCR 1.56 (CRCL ~ 36) A/P: VANCOMYCIN 1,750MG IV GIVE THIS AM AT 0200, WILL DOSE 15MG/KG ~ 1,250MG IV Q24H, WITH NEXT DOSE DUE AT 0600. TIMED TO BE GIVEN WITH OTHER 0600 MEDICATIONS STARTING TOMORROW. WILL CHECK A TROUGH LEVEL ON 06/01/2019 @ 0600 HOLDING IF LEVEL IS GREATER THAN 20.
[2019-05-30] MEDS ORDERED: AZITHROMYCIN INJECTION 500 MG in NS (IVPB) 250 ML IV NR (07:30)
[2019-05-30] MEDS ORDERED: PIPERACILLIN/TAZOBACTAM 4.5 GM in NS (IVPB) 100 ML IV NR (07:30)
--- NOTE | 2019-05-30 07:45 | Diagnostic Imaging Report ---
INDICATION: Respiratory distress. Exam compared with study earlier the same date. This film is timed 259 hours. FINDINGS: Bilateral effusions, 5 lobe infiltrates and support apparatus are in good alignment. The ET tube projects over the midthoracic trachea. OG goes into the stomach and a right IJ at the SVC. There is no pneumothorax. IMPRESSION: Unchanged bilateral infiltrates and pleural fluid, intervally placed lines and catheters project in good alignment. Dictated by: Dictated on workstation # [id number]
--- NOTE | 2019-05-30 07:48 | Diagnostic Imaging Report ---
INDICATION: Respiratory distress. TECHNIQUE: Single view chest 1:18 AM. CORRELATION STUDY: 04/15/2019 FINDINGS: Heart size is enlarged. Vasculature slightly increased. There is presence of scattered patchy pulmonary parenchymal densities predominantly involving all 5 lobes most pronounced at lung bases right greater than left. IMPRESSION: 1. Bilateral infiltrates most pronounced lung bases most compatible with pneumonia. Given distribution, aspiration is consideration. Followup imaging recommended. Dictated by: Dictated on workstation # [id number]
--- NOTE | 2019-05-30 08:13 | Occ Therapy Progress Note ---
Therapy Progress Note Pt intubated/ sedated on this date. OT to hold tx and continue to follow; will begin eval/ treat when medically stable and able to participate in skilled therapy. JER BARBOSA OTR May 30, 2019 08:13
[2019-05-30] MEDS ORDERED: AZIT250T12 PO (08:24)
[2019-05-30] MEDS ORDERED: BISA10SU8 RC (08:24)
[2019-05-30] MEDS ORDERED: LISI10TA2 PO (08:24)
[2019-05-30] MEDS ORDERED: IPRA3AMP31 IH (08:24)
[2019-05-30] MEDS ORDERED: FURO-124 PO (08:24)
[2019-05-30] MEDS ORDERED: FLUT1DIS26 IH (08:24)
[2019-05-30] MEDS ORDERED: POTA-51 PO (08:24)
[2019-05-30] MEDS ORDERED: CHOL100048 PO (08:24)
[2019-05-30] MEDS ORDERED: TRAM50TA3 PO (08:24)
[2019-05-30] MEDS ORDERED: GUAI120013 PO (08:24)
[2019-05-30] MEDS ORDERED: PANT40TA2 PO (08:24)
[2019-05-30] MEDS ORDERED: TERA2CAP4 PO (08:24)
[2019-05-30] MEDS ORDERED: DOCU-143 PO (08:24)
[2019-05-30] MEDS ORDERED: ASPI-983 PO (08:24)
[2019-05-30] MEDS ORDERED: ALB0.5V INH ×2 (08:24)
[2019-05-30] MEDS ORDERED: ACET-2267 PO (08:24)
[2019-05-30] MEDS ORDERED: MTP25TSR PO (08:24)
[2019-05-30 08:31] LABS: BASOPHILS % (AUTO) 0 % (0-10); EOSINOPHILS # (AUTO) 0.1 10^3/uL (0.0-0.3); EOSINOPHILS % (AUTO) 1 % (0-10); HEMATOCRIT 28 % (40-54); HEMOGLOBIN 8.5 G/DL (13.3-17.7); LYMPHOCYTES # (AUTO) 1.1 X 10^3 (1.0-4.0); LYMPHOCYTES % (AUTO) 7 % (12-44); MEAN CORPUSCULAR HEMOGLOBIN 28 PG (25-34); MEAN CORPUSCULAR HGB CONC 31 G/DL (32-36); MEAN CORPUSCULAR VOLUME 92 FL (80-99); MEAN PLATELET VOLUME 9.5 FL (7.4-10.4); MONOCYTES # (AUTO) 1.8 X 10^3 (0.0-1.0); MONOCYTES % (AUTO) 12 % (0-12); NEUTROPHILS # (AUTO) 12.1 X 10^3 (1.8-7.8); NEUTROPHILS % (AUTO) 80 % (42-75); PLATELET COUNT 399 10^3/uL (130-400); RED CELL DISTRIBUTION WIDTH 14.8 % (10.0-14.5); WHITE BLOOD COUNT 15.2 10^3/uL (4.3-11.0)
--- NOTE | 2019-05-30 08:38 | Physical Therapy Progress Note ---
Therapy Progress Note Pt intubated/sedated. Hold PT eval and continue to follow until Pt medically stable, able to actively participate with PT. AB HUBER DPT May 30, 2019 08:38
[2019-05-30 08:44] LABS: ALBUMIN 2.3 GM/DL (3.2-4.5); BILIRUBIN,TOTAL 0.4 MG/DL (0.1-1.0); CALCIUM 7.9 MG/DL (8.5-10.1); CREATININE SERUM 1.19 MG/DL (0.60-1.30); MAGNESIUM 2.1 MG/DL (1.6-2.4); PHOSPHORUS 3.5 MG/DL (2.3-4.7); POTASSIUM 4.4 MMOL/L (3.6-5.0)
[2019-05-30 08:49] LABS: BAND NEUTROPHILS 9 %; BASOPHILS % (MANUAL) 0 %; EOSINOPHILS % (MANUAL) 3 %; LYMPHOCYTES % (MANUAL) 8 %; METAMYELOCYTES % 1 %; MONOCYTES % (MANUAL) 5 %; NEUTROPHILS % (MANUAL) 74 %; RBC MORPH NORMAL
[2019-05-30] MEDS ORDERED: PANTOPRAZOLE 40 MG (PROTONIX) VIAL IV SCH (09:00)
[2019-05-30] MEDS: MICONAZOLE 2% POWDER (DESENEX AF) 90 GM TOP SCH ×2 (11:13→20:26)
--- NOTE | 2019-05-30 11:31 | History & Physical-Hospitalist ---
History of Present Illness HPI/Chief Complaint Ones Deal is an 83-year-old male with past medical history of hypertension, COPD with chronic hypoxia, GERD, who presented with shortness of breath. He has been having trouble breathing as well as cough productive of yellow sputum. This is been going on for the past week. He has been taking azithromycin for bronchit is. He is chronically on oxygen 2-3 L. He is a resident of [facility]. Upon my examination, he is intubated and sedated. Source: RN/MD Exam Limitations: no limitations Date Seen 05/30/19 Time Seen by a Provider: 08:30 Attending Physician Lorna Baum MD PCP Bobby Celestin DO Referring Physician Date of Admission May 30, 2019 at 01:30 Home Medications & Allergies Home Medications Reviewed patient Home Medication Reconciliation performed by pharmacy medication reconciliations application technician and/or nursing. Patients Allergies have been reviewed. Allergies Allergies Coded Allergies No Known Drug Allergies (Unverified04/25/19) Past Uspacbg-Jjxqer-Qpgcrk Hx Past Med/Social Hx: Reviewed Nursing Past Med/Soc Hx Patient Social History Alcohol Use: Denies Use Recreational Drug Use: No Smoking Status: Never a Smoker Recent Foreign Travel: No Contact w/other who traveled: No Recent Hopitalizations: No Recent Infectious Disease Expo: No Immunizations Up To Date Tetanus Booster (TDap): More than 5yrs Seasonal Allergies Seasonal Allergies: No Past Medical History Cardiac: Hypertension Genitourinary: Renal Failure Gastrointestinal: Abdominal Hernia Musculoskeletal: Chronic Back Pain Hearing Impairment: Hard of Hearing Cancer: Skin Did You Recieve Any Treatments: Yes What Type of Treatment Did You: Surgical Intervention Review of Systems Constitutional: see HPI Physical Exam Physical Exam Vital Signs Vital Signs - First Documented 05/30/19 05/30/19 00:45 02:15 Temp 38.4 Pulse 96 Resp 26 B/P (MAP) 111/67 (82) Pulse Ox 95 O2 Delivery Nasal Cannula O2 Flow Rate 3.00 FiO2 60 Capillary Refill : Less Than 3 Seconds Height, Weight, BMI Height: '" Weight: lbs. oz. kg; 27.00 BMI Method: General Appearance: No Apparent Distress, WD/WN, Other (Intubated and sedated) HEENT: Other (Endotracheal tube in place, OG tube in place) Neck: Normal Inspection, Supple Respiratory: No Respiratory Distress, Crackles, Rhonci Cardiovascular: Regular Rate, Rhythm, No Edema Gastrointestinal: Normal Bowel Sounds, Soft Extremity: Normal Inspection, Non Tender, No Pedal Edema Neurologic/Psychiatric: Other (sedated) Skin: Normal Color, Warm/Dry Results Results/Procedures Labs Laboratory Tests 05/30/19 00:50 05/30/19 08:15 Patient resulted labs reviewed. Imaging: Reviewed Imaging Report Assessment/Plan Admission Diagnosis Septic shock Admission Status: Inpatient Order (span 2 midnights) Reason for Inpatient Admission: Septic shock due to pneumonia requiring further evaluation and treatment Assessment and Plan Septic shock Pneumonia Acute on chronic respiratory failure with hypoxemia and hypercapnia COPD without acute exacerbation Acute kidney injury Hyperkalemia Advanced age Poor prognosis Imaging consistent with multifocal pneumonia ABG consistent with acute hypercapnia and hypoxia Creatinine elevated at 1.56 on arrival, improved to 1.1 this morning Started on Levophed for shock Pulmonology consulted, appreciate assistance COVID pending Flu negative Sputum culture pending BNP mildly elevated Continue IV fluids Continue vancomycin, Zosyn, and azithromycin DVT Prophylaxis: Lovenox Diagnosis/Problems Diagnosis/Problems (1) Septic shock Status: Acute (2) Pneumonia Status: Acute (3) Acute on chronic respiratory failure with hypoxia and hypercapnia Status: Acute (4) Acute kidney injury Status: Acute (5) COPD with acute lower respiratory infection Status: Acute (6) Advanced age Status: Chronic (7) Poor prognosis Status: Acute Clinical Quality Measures DVT/VTE Risk/Contraindication: Risk Factor Score Per Nursin RFS Level Per Nursing on Admit: 4+=Very High LORNA BAUM MD May 30, 2019 11:31
[2019-05-30] MEDS ORDERED: fentaNYL INJECTION 1,250 MCG in NS (IVPB) 250 ML IV SCH (12:15)
[2019-05-30] MEDS ORDERED: VANCOMYCIN INJECTION 1,250 MG in NS (IVPB) 250 ML IV SCH (13:00)
--- NOTE | 2019-05-30 13:04 | NUR ---
RD ASSESSMENT PMH: HTN; COPD; CA(skin) Note pt is currently intubated/sedated. All information is taken per chart review. Note recent 13# wt loss x1mon. Abnormal Lab Values: BUN 44 (H); glu 120 (H); Ca 7.9 (L); Pro 5.0 (L); alb 2.3 (L) If pt is to remain NPO for more than 3 days, would recommend the following TF: Jevity 1.5 at goal rate of 55ml/hr. Begin at 10ml/hr and increase by 10ml q6h as medically able and as tolerated. Monitor gastric residuals for tolerance. At goal rate, provides 1980 kcal (25 kcal/kg); 84 g Pro (1.1 g Pro/kg); and 1003ml free water. Flush with 75ml H2O q4h for hydration status. With flushes, provides 1453ml free water. Will continue to follow and reassess as pt needs, intake, and status change. Itz Patino MS, RD, LD [phone]
[2019-05-30] MEDS: PIPERACILLIN/TAZOBACTAM (BULK) 4.5 GM in NS (IVPB) 100 ML IV SCH ×2 (13:50→22:00)
[2019-05-30] MEDS: inSUlin ASPART (NovoLOG) 1 UNIT/0.01 ML (CHARGE PER UNIT) SC SCH ×2 (17:59→23:31)
[2019-05-30] MEDS: PANTOPRAZOLE 40 MG (PROTONIX) VIAL IV SCH (20:25)
[2019-05-31] VITALS (31 sets, daily range): BP systolic 105–146; BP diastolic 46–76
[2019-05-31] MEDS: NS IV 1000 ML 1,000 ML IV SCH ×3 (00:33→18:17)
[2019-05-31 02:40] LABS: ABG BASE EXCESS -1.7 MMOL/L (-2.5-2.5); ABG OXYGEN SATURATION 95 % (94-100); ABG PCO2 43 MMHG (35-45); ABG PH 7.35 (7.37-7.43); ABG PO2 80 MMHG (79-93); ABG TCO2 24.4 MMOL/L (21.0-31.0)
[2019-05-31 02:41] LABS: ALLENS TEST YES-POS; BASOPHILS # (AUTO) 0.1 10^3/uL (0.0-0.1); BASOPHILS % (AUTO) 1 % (0-10); EOSINOPHILS # (AUTO) 1.5 10^3/uL (0.0-0.3); EOSINOPHILS % (AUTO) 10 % (0-10); HEMATOCRIT 27 % (40-54); HEMOGLOBIN 8.3 G/DL (13.3-17.7); INSPIRED O2 40%; LYMPHOCYTES # (AUTO) 0.7 X 10^3 (1.0-4.0); LYMPHOCYTES % (AUTO) 4 % (12-44); MEAN CORPUSCULAR HEMOGLOBIN 29 PG (25-34); MEAN CORPUSCULAR HGB CONC 31 G/DL (32-36); MEAN CORPUSCULAR VOLUME 93 FL (80-99); MEAN PLATELET VOLUME 9.8 FL (7.4-10.4); MONOCYTES # (AUTO) 1.6 X 10^3 (0.0-1.0); MONOCYTES % (AUTO) 11 % (0-12); NEUTROPHILS # (AUTO) 11.2 X 10^3 (1.8-7.8); NEUTROPHILS % (AUTO) 74 % (42-75); PLATELET COUNT 369 10^3/uL (130-400); RED CELL DISTRIBUTION WIDTH 14.9 % (10.0-14.5); VENTILATOR YES
[2019-05-31 02:56] LABS: ALANINE AMINOTRANSFERASE 18 U/L (0-55); ALKALINE PHOSPHATASE 53 U/L (40-136); BILIRUBIN,TOTAL 0.3 MG/DL (0.1-1.0); BUN/CREATININE RATIO 32; CALCIUM 7.6 MG/DL (8.5-10.1); CARBON DIOXIDE 21 MMOL/L (21-32); CHLORIDE 109 MMOL/L (98-107); GFR ESTIMATED > 60; GLUCOSE 71 MG/DL (70-105); MAGNESIUM 1.8 MG/DL (1.6-2.4); PHOSPHORUS 2.7 MG/DL (2.3-4.7); POTASSIUM 3.7 MMOL/L (3.6-5.0); SODIUM 140 MMOL/L (135-145); TOTAL PROTEIN 4.5 GM/DL (6.4-8.2)
[2019-05-31] MEDS: NOREPINEPHRINE 4 MG/250 ML 250 ML IV SCH ×3 (04:12→19:49)
[2019-05-31] MEDS: POTASSIUM CL 10MEQ/50ML IVPB 50 ML IV SCH (04:18)
[2019-05-31] MEDS: MAGNESIUM 1 GM/100 ML IVPB 100 ML IV SCH (04:18)
[2019-05-31] MEDS: KCL 20 MEQ TAB (K-DUR) PO SCH (04:19)
--- NOTE | 2019-05-31 05:41 | Pulmonary Progress Note ---
Subjective Time Seen by a Provider: 05:36 Subjective/Events-last exam sedated on vent Sepsis Event Evaluation Height, Weight, BMI Height: '" Weight: lbs. oz. kg; 27.00 BMI Method: Focused Exam Lactate Level 05/30/19 00:50: Lactic Acid Level 0.79 Exam Exam Vital Signs Date Time Temp Pulse Resp B/P (MAP) Pulse Ox O2 Delivery O2 Flow Rate FiO2 05/31/19 05:00 96 23 113/57 (75) 92 Mechanical Ventilator 40.00 05/31/19 04:15 36.7 05/31/19 04:00 98 23 105/52 (69) 92 Mechanical Ventilator 40.00 05/31/19 03:47 Mechanical Ventilator 40 05/31/19 03:46 98 97/73 05/31/19 03:37 97 24 95 40 05/31/19 03:00 94 24 120/58 (78) 93 Mechanical Ventilator 40.00 05/31/19 02:00 95 23 125/57 (79) 93 Mechanical Ventilator 40.00 05/31/19 01:00 95 05/31/19 01:00 93 23 122/56 (78) 93 Mechanical Ventilator 40.00 05/31/19 00:00 95 23 112/56 (74) 93 Mechanical Ventilator 40.00 05/30/19 23:34 Mechanical Ventilator 70 05/30/19 23:32 37.0 05/30/19 23:32 Mechanical Ventilator 40.00 05/30/19 23:25 94 24 93 40 05/30/19 23:00 99 25 117/56 (76) 94 Mechanical Ventilator 50.00 05/30/19 22:58 99 120/60 05/30/19 22:00 92 24 112/60 (77) 94 Mechanical Ventilator 50.00 05/30/19 21:00 91 24 134/58 (83) 97 Mechanical Ventilator 50.00 05/30/19 20:24 79 93/43 05/30/19 20:00 Mechanical Ventilator 70 05/30/19 20:00 85 24 108/50 (69) 94 Mechanical Ventilator 50.00 05/30/19 19:53 87 121/55 05/30/19 19:51 35.7 05/30/19 19:45 92 126/54 05/30/19 19:29 90 24 95 50 05/30/19 19:00 92 05/30/19 19:00 91 26 122/51 (74) 90 Mechanical Ventilator 50.00 05/30/19 19:00 92 102/75 05/30/19 18:00 87 17 122/52 (75) 98 Mechanical Ventilator 70.00 05/30/19 17:00 76 23 106/47 (66) 98 Mechanical Ventilator 70.00 05/30/19 16:00 74 19 108/50 (69) 99 Mechanical Ventilator 70.00 05/30/19 16:00 98 Mechanical Ventilator 70 05/30/19 15:28 80 121/57 05/30/19 15:00 79 24 125/65 (85) 100 Mechanical Ventilator 70.00 05/30/19 14:42 83 24 97 50 05/30/19 14:00 81 30 124/56 (78) 100 Mechanical Ventilator 70.00 05/30/19 13:00 86 21 119/56 (77) 100 Mechanical Ventilator 70.00 05/30/19 12:45 88 05/30/19 12:00 98 Mechanical Ventilator 70 05/30/19 12:00 96 12 121/54 (76) 97 Mechanical Ventilator 70.00 05/30/19 11:56 97 134/76 05/30/19 11:00 94 23 126/59 (81) 99 Mechanical Ventilator 70.00 05/30/19 10:47 95 24 100 50 05/30/19 10:00 93 16 130/62 (84) 100 Mechanical Ventilator 70.00 05/30/19 09:00 96 23 127/60 (82) 100 Mechanical Ventilator 70.00 05/30/19 08:45 36.8 05/30/19 08:23 97 133/63 05/30/19 08:00 98 Mechanical Ventilator 70 05/30/19 08:00 96 24 129/61 (83) 99 Mechanical Ventilator 70.00 05/30/19 07:10 98 24 100 60 05/30/19 07:00 96 24 129/59 (82) 100 Mechanical Ventilator 70.00 05/30/19 06:40 102 05/30/19 06:17 86 108/54 05/30/19 05:45 83 24 81/44 (56) 100 Mechanical Ventilator 70.00 I & O 05/31/19 07:00 Intake Total 4670 ml Output Total 1450 ml Balance 3220 ml Height & Weight Height: '" Weight: lbs. oz. kg; 27.00 BMI Method: General Appearance: No Apparent Distress, WD/WN, Other (Intubated and sedated) HEENT: Other (Endotracheal tube in place, OG tube in place) Neck: Normal Inspection, Supple Respiratory: No Respiratory Distress, Crackles, Rhonci Cardiovascular: Regular Rate, Rhythm, No Edema Capillary Refill: Less Than 3 Seconds Gastrointestinal: normal bowel sounds, non tender, soft, other (Ventral hernia) Extremity: Normal Inspection, Non Tender, No Pedal Edema Neurologic/Psychiatric: Other (sedated) Skin: Normal Color, Warm/Dry Results Lab Laboratory Tests 05/30/19 00:50 05/30/19 08:15 05/31/19 02:20 Assessment/Plan Assessment/Plan Acute respiratory failure with pneumonia with Severe sepsis - question of aspiration -Change Abx to Vanco, Zosyn and azithromycin d/c cefepime -Continue vent -Will do vent weaning trial. -Start duoneb and solumedrol -Burnett cultures pending -influenza is negative -Check RVP -COVID is neg Acute renal failure -IVF -monitor Hypotension -Titrate to d/c Levophed -Give another liter bolus of LR Dehydration -IVF Anemia -Monitor KAILEY FROST DO May 31, 2019 05:41
[2019-05-31] MEDS ORDERED: methylPREDNISolone 40 MG/ML (Solu-MEDROL) VIAL IV SCH (06:00)
[2019-05-31] MEDS ORDERED: ENOXAPARIN 40 MG/0.4 ML (LOVENOX) SYR SC SCH (06:00)
[2019-05-31] MEDS ORDERED: methylPREDNISolone 125 MG (Solu-MEDROL) VIAL ONE (06:32)
[2019-05-31] MEDS ORDERED: methylPREDNISolone 125 MG (Solu-MEDROL) VIAL IVP ONE ×2 (06:40→12:00)
[2019-05-31] MEDS: inSUlin ASPART (NovoLOG) 1 UNIT/0.01 ML (CHARGE PER UNIT) SC SCH ×4 (06:42→23:34)
[2019-05-31] MEDS: PIPERACILLIN/TAZOBACTAM (BULK) 4.5 GM in NS (IVPB) 100 ML IV SCH ×3 (06:42→21:39)
--- NOTE | 2019-05-31 06:58 | NUR ---
90ML FENTANYL WASTED FROM FENTANYL GTT. VERIFIED WITH ROSIE COATES.
[2019-05-31] MEDS ORDERED: VANCOMYCIN 1250 MG/NS 250 ML IVPB IV SCH ×2 (07:00)
--- NOTE | 2019-05-31 07:28 | NUR ---
THIS RN NOTIFIED DR. FROST OF BRIGHT RED BLOOD NOTED IN OG. NEW ORDERS OBTAINED, SEE ORDER HX.
[2019-05-31] MEDS: RT-ALBUTEROL/IPRATROPIUM 3 ML (DUONEB) VIAL INH SCH ×4 (07:31→22:44)
[2019-05-31] MEDS: AZITHROMYCIN INJECTION 250 MG in NS (IVPB) 250 ML IV SCH (08:13)
[2019-05-31] MEDS: PANTOPRAZOLE 40 MG (PROTONIX) VIAL IV SCH ×2 (08:13→21:39)
[2019-05-31] MEDS: MICONAZOLE 2% POWDER (DESENEX AF) 90 GM TOP SCH ×2 (08:14→21:40)
--- NOTE | 2019-05-31 08:18 | Diagnostic Imaging Report ---
INDICATION: Respiratory failure. Time of exam 3:41 AM Correlation is made with prior chest one day earlier. Support lines and catheters remain in place. Patchy bilateral pulmonary infiltrates persist. There is a small left effusion. No pneumothorax is seen. IMPRESSION: Continued bilateral pulmonary infiltrates and small left effusion. Dictated by: Dictated on workstation # [id number]
--- NOTE | 2019-05-31 09:26 | NUR ---
Dr. Ferreira notified at this time of pt's RR 42, Tidal volumes 200s, and O2 saturation 88%. Orders received to place pt back on sedation and AC mode at this time. RT notified.
[2019-05-31] MEDS ORDERED: DexMEDEtomidine 250 ML DRIP 250 ML IV ONE (09:27)
[2019-05-31] MEDS: DexMEDEtomidine 250 ML DRIP 250 ML IV SCH ×2 (09:52→18:18)
--- NOTE | 2019-05-31 11:30 | Progress Note ---
Subjective Subjective Date Seen by Provider: May 31, 2019 Time Seen by Provider: 11:45 83 yo M - pt placed back on AC vent and sedation. -lab called this AM and reported gram neg cocci on 1 blood culture- possible hemophilus. being sent out for further testing. -OG putting out blood Review of Systems ROS Unable to Obtain: intubated, sedated All Other Systems Reviewed All Other Systems Reviewed: Yes Objective Exam Vital Signs Vital Signs Date Time Temp Pulse Resp B/P (MAP) Pulse Ox O2 Delivery O2 Flow Rate FiO2 05/31/19 11:00 90 24 115/59 (77) 93 Mechanical Ventilator 40.00 05/31/19 10:25 91 21 94 40 05/31/19 10:00 96 27 136/76 (96) 92 Mechanical Ventilator 40.00 05/31/19 09:52 98 122/69 05/31/19 09:04 94 35 91 40 05/31/19 09:00 94 35 119/57 (77) 92 Mechanical Ventilator 40.00 05/31/19 08:00 37.2 05/31/19 08:00 Mechanical Ventilator 40 05/31/19 08:00 113 43 138/71 (93) 94 Mechanical Ventilator 40.00 05/31/19 07:38 97 28 95 40 05/31/19 07:00 94 22 106/55 (72) 92 Mechanical Ventilator 40.00 05/31/19 07:00 104 05/31/19 06:00 97 23 124/62 (82) 92 Mechanical Ventilator 40.00 05/31/19 05:00 96 23 113/57 (75) 92 Mechanical Ventilator 40.00 05/31/19 04:15 36.7 05/31/19 04:00 98 23 105/52 (69) 92 Mechanical Ventilator 40.00 05/31/19 03:47 Mechanical Ventilator 40 05/31/19 03:46 98 97/73 05/31/19 03:37 97 24 95 40 05/31/19 03:00 94 24 120/58 (78) 93 Mechanical Ventilator 40.00 05/31/19 02:00 95 23 125/57 (79) 93 Mechanical Ventilator 40.00 05/31/19 01:00 95 05/31/19 01:00 93 23 122/56 (78) 93 Mechanical Ventilator 40.00 05/31/19 00:00 95 23 112/56 (74) 93 Mechanical Ventilator 40.00 05/30/19 23:34 Mechanical Ventilator 70 05/30/19 23:32 37.0 05/30/19 23:32 Mechanical Ventilator 40.00 05/30/19 23:25 94 24 93 40 05/30/19 23:00 99 25 117/56 (76) 94 Mechanical Ventilator 50.00 05/30/19 22:58 99 120/60 05/30/19 22:00 92 24 112/60 (77) 94 Mechanical Ventilator 50.00 05/30/19 21:00 91 24 134/58 (83) 97 Mechanical Ventilator 50.00 05/30/19 20:24 79 93/43 05/30/19 20:00 Mechanical Ventilator 70 05/30/19 20:00 85 24 108/50 (69) 94 Mechanical Ventilator 50.00 05/30/19 19:53 87 121/55 05/30/19 19:51 35.7 05/30/19 19:45 92 126/54 05/30/19 19:29 90 24 95 50 05/30/19 19:00 92 05/30/19 19:00 91 26 122/51 (74) 90 Mechanical Ventilator 50.00 05/30/19 19:00 92 102/75 05/30/19 18:00 87 17 122/52 (75) 98 Mechanical Ventilator 70.00 05/30/19 17:00 76 23 106/47 (66) 98 Mechanical Ventilator 70.00 05/30/19 16:00 74 19 108/50 (69) 99 Mechanical Ventilator 70.00 05/30/19 16:00 98 Mechanical Ventilator 70 05/30/19 15:28 80 121/57 05/30/19 15:00 79 24 125/65 (85) 100 Mechanical Ventilator 70.00 05/30/19 14:42 83 24 97 50 05/30/19 14:00 81 30 124/56 (78) 100 Mechanical Ventilator 70.00 05/30/19 13:00 86 21 119/56 (77) 100 Mechanical Ventilator 70.00 05/30/19 12:45 88 05/30/19 12:00 98 Mechanical Ventilator 70 05/30/19 12:00 96 12 121/54 (76) 97 Mechanical Ventilator 70.00 05/30/19 11:56 97 134/76 I & O 05/31/19 07:00 Intake Total 5035 ml Output Total 1800 ml Balance 3235 ml General Appearance: No Apparent Distress, WD/WN, Other (Intubated and sedated) Eyes: Bilateral Eye PERRL, Bilateral Eye Other (Bilateral mattering mild) HEENT: Other (Endotracheal tube in place, OG tube in place) Neck: Normal Inspection, Supple Respiratory: No Respiratory Distress, Crackles, Rhonci Cardiovascular: Regular Rate, Rhythm, No Edema Gastrointestinal: Normal Bowel Sounds, Soft Extremity: Normal Inspection, Non Tender, No Pedal Edema Neurologic/Psychiatric: Other (sedated) Skin: Normal Color, Warm/Dry Results Lab Laboratory Tests 05/30/19 13:45: 05/30/19 13:46: Glucometer 86 05/30/19 17:56: Glucometer 79 05/30/19 23:30: Glucometer 77 05/31/19 02:20: White Blood Count 15.0H, Red Blood Count 2.88L, Hemoglobin 8.3L, Hematocrit 27L, Mean Corpuscular Volume 93, Mean Corpuscular Hemoglobin 29, Mean Corpuscular Hemoglobin Concent 31L, Red Cell Distribution Width 14.9H, Platelet Count 369, Mean Platelet Volume 9.8, Neutrophils (%) (Auto) 74, Lymphocytes (%) (Auto) 4L, Monocytes (%) (Auto) 11, Eosinophils (%) (Auto) 10, Basophils (%) (Auto) 1, Neutrophils # (Auto) 11.2H, Lymphocytes # (Auto) 0.7L, Monocytes # (Auto) 1.6H, Eosinophils # (Auto) 1.5H, Basophils # (Auto) 0.1, Blood Gas Puncture Site LEFT RADIAL, Blood Gas Patient Temperature 37.0, Arterial Blood pH 7.35L, Arterial Blood Partial Pressure CO2 43, Arterial Blood Partial Pressure O2 80, Arterial Blood HCO3 23, Arterial Blood Total CO2 24.4, Arterial Blood Oxygen Saturation 95, Arterial Blood Base Excess -1.7, Butch Test YES-POS, Blood Gas Ventilator Se tting YES, Blood Gas Inspired Oxygen 40%, Sodium Level 140, Potassium Level 3.7, Chloride Level 109H, Carbon Dioxide Level 21, Anion Gap 10, Blood Urea Nitrogen 29H, Creatinine 0.90, Estimat Glomerular Filtration Rate > 60, BUN/Creatinine Ratio 32, Glucose Level 71, Calcium Level 7.6L, Corrected Calcium 9.2, Phosphorus Level 2.7, Magnesium Level 1.8, Total Bilirubin 0.3, Aspartate Amino Transf (AST/SGOT) 19, Alanine Aminotransferase (ALT/SGPT) 18, Alkaline Phosphatase 53, Total Protein 4.5L, Albumin 2.0L Microbiology 05/30/19 Gram Stain - Final, Resulted 05/30/19 Sputum Culture - Preliminary, Resulted 05/30/19 Blood Culture - Preliminary, Resulted Gram Negative Coccobacillus Assessment/Plan Assessment/Plan Assessment and Plan 05/31/19 weaning trial started but rr increased and oxygen saturation declined he was placed back on AC and sedated OG tube is bringing up bloody secretions -lovenox held. Pt is on PPI BID IV monitoring Hgb. Continue Vanc/zosyn/azithromycin- 1 blood culture is going gram neg- sent off to [facility] blood pressure is better- pressors are off. -steroids started for his COPD and respiratory failure- but steroids will not be good for his GI bleed. Dr. Ferreira consulted. Dispo: guarded. Problems: (1) Pneumonia (2) Acute on chronic respiratory failure with hypoxia and hypercapnia (3) Acute kidney injury Assessment & Plan: improved (4) COPD with acute lower respiratory infection (5) GI bleed Assessment & Plan: trending hgb- does not appear to be a brisk bleed- could be gastritis along with irritation from placement of OG. Clinical Quality Measures DVT/VTE Risk/Contraindication: Risk Factor Score Per Nursin RFS Level Per Nursing on Admit: 4+=Very High HARRY TRUJILLO MD May 31, 2019 11:30
[2019-05-31] MEDS: methylPREDNISolone 40 MG/ML (Solu-MEDROL) VIAL IV SCH ×2 (11:33→19:49)
[2019-05-31 20:03] LABS: HEMOGLOBIN 9.6 G/DL (13.3-17.7)
[2019-06-01] VITALS (27 sets, daily range): BP systolic 111–147; BP diastolic 54–105
[2019-06-01] MEDS: methylPREDNISolone 40 MG/ML (Solu-MEDROL) VIAL IV SCH ×4 (00:19→19:48)
[2019-06-01] MEDS: RT-ALBUTEROL/IPRATROPIUM 3 ML (DUONEB) VIAL INH SCH ×5 (02:51→19:12)
[2019-06-01 03:14] LABS: ABG BASE EXCESS -4.9 MMOL/L (-2.5-2.5); ABG OXYGEN SATURATION 91 % (94-100); ABG PCO2 31 MMHG (35-45); ABG PO2 59 MMHG (79-93); ABG TCO2 20.2 MMOL/L (21.0-31.0); BASOPHILS % (AUTO) 0 % (0-10); EOSINOPHILS % (AUTO) 0 % (0-10); HEMATOCRIT 30 % (40-54); HEMOGLOBIN 9.3 G/DL (13.3-17.7); LYMPHOCYTES # (AUTO) 0.7 X 10^3 (1.0-4.0); LYMPHOCYTES % (AUTO) 7 % (12-44); MEAN CORPUSCULAR HEMOGLOBIN 28 PG (25-34); MEAN CORPUSCULAR HGB CONC 31 G/DL (32-36); MEAN CORPUSCULAR VOLUME 90 FL (80-99); MEAN PLATELET VOLUME 9.7 FL (7.4-10.4); MONOCYTES # (AUTO) 0.3 X 10^3 (0.0-1.0); MONOCYTES % (AUTO) 3 % (0-12); NEUTROPHILS # (AUTO) 9.4 X 10^3 (1.8-7.8); NEUTROPHILS % (AUTO) 90 % (42-75); PLATELET COUNT 389 10^3/uL (130-400); WHITE BLOOD COUNT 10.5 10^3/uL (4.3-11.0)
[2019-06-01 03:15] LABS: ALLENS TEST YES-POS; INSPIRED O2 30%; PATIENT TEMP 35.8; VENTILATOR YES
[2019-06-01 03:22] LABS: CHLORIDE 113 MMOL/L (98-107); POTASSIUM 4.4 MMOL/L (3.6-5.0); SODIUM 145 MMOL/L (135-145)
[2019-06-01 03:23] LABS: CALCIUM 8.2 MG/DL (8.5-10.1); GLUCOSE 171 MG/DL (70-105)
[2019-06-01 03:25] LABS: CARBON DIOXIDE 18 MMOL/L (21-32)
[2019-06-01 03:27] LABS: CREATININE SERUM 1.08 MG/DL (0.60-1.30); GFR ESTIMATED > 60; PHOSPHORUS 4.6 MG/DL (2.3-4.7)
[2019-06-01 03:28] LABS: BUN/CREATININE RATIO 34
[2019-06-01] MEDS: NOREPINEPHRINE 4 MG/250 ML 250 ML IV SCH (03:28)
--- NOTE | 2019-06-01 04:53 | Pulmonary Progress Note ---
Subjective Time Seen by a Provider: 04:50 Subjective/Events-last exam Sedated on vent. Sepsis Event Evaluation Height, Weight, BMI Height: '" Weight: lbs. oz. kg; 27.00 BMI Method: Focused Exam Lactate Level 05/30/19 00:50: Lactic Acid Level 0.79 Exam Exam Vital Signs Date Time Temp Pulse Resp B/P (MAP) Pulse Ox O2 Delivery O2 Flow Rate FiO2 06/01/19 04:00 Mechanical Ventilator 21 06/01/19 03:24 35.8 06/01/19 03:00 57 26 129/70 (89) 92 Mechanical Ventilator 21.00 06/01/19 02:51 82 30 92 21 06/01/19 02:00 89 33 138/71 (93) 94 Mechanical Ventilator 21.00 06/01/19 01:00 85 29 141/67 (91) 94 Mechanical Ventilator 21.00 06/01/19 01:00 83 06/01/19 00:00 Mechanical Ventilator 21 06/01/19 00:00 89 34 139/70 (93) 94 Mechanical Ventilator 21.00 05/31/19 23:33 36.7 05/31/19 23:00 89 30 133/63 (86) 92 Mechanical Ventilator 21.00 05/31/19 22:49 Mechanical Ventilator 21.00 05/31/19 22:44 76 27 97 21 05/31/19 22:00 80 32 146/70 (95) 97 Mechanical Ventilator 28.00 05/31/19 21:00 76 32 143/74 (97) 97 Mechanical Ventilator 28.00 05/31/19 20:16 Mechanical Ventilator 28.00 05/31/19 20:00 36.7 05/31/19 20:00 82 31 146/76 (99) 100 Mechanical Ventilator 30.00 05/31/19 20:00 Mechanical Ventilator 30 05/31/19 19:00 80 30 141/74 (96) 99 Mechanical Ventilator 30.00 05/31/19 19:00 Mechanical Ventilator 30.00 05/31/19 19:00 80 05/31/19 18:45 80 24 97 30 05/31/19 18:18 69 05/31/19 18:00 86 31 136/73 (94) 99 Mechanical Ventilator 40.00 05/31/19 17:00 84 34 135/70 (91) 98 Mechanical Ventilator 40.00 05/31/19 16:00 Mechanical Ventilator 40 05/31/19 16:00 86 23 133/68 (89) 97 Mechanical Ventilator 40.00 05/31/19 16:00 36.5 05/31/19 15:15 133/68 05/31/19 15:00 84 24 131/69 (89) 100 Mechanical Ventilator 40.00 05/31/19 14:33 91 21 94 40 05/31/19 14:00 68 24 137/70 (92) 98 Mechanical Ventilator 40.00 05/31/19 13:00 81 32 134/68 (90) 98 Mechanical Ventilator 40.00 05/31/19 12:15 88 05/31/19 12:00 37.0 05/31/19 12:00 Mechanical Ventilator 40 05/31/19 12:00 86 31 119/63 (81) 96 Mechanical Ventilator 40.00 05/31/19 11:00 90 24 115/59 (77) 93 Mechanical Ventilator 40.00 05/31/19 10:25 91 21 94 40 05/31/19 10:00 96 27 136/76 (96) 92 Mechanical Ventilator 40.00 05/31/19 09:52 98 122/69 05/31/19 09:04 94 35 91 40 05/31/19 09:00 94 35 119/57 (77) 92 Mechanical Ventilator 40.00 05/31/19 08:00 37.2 05/31/19 08:00 Mechanical Ventilator 40 05/31/19 08:00 113 43 138/71 (93) 94 Mechanical Ventilator 40.00 05/31/19 07:38 97 28 95 40 05/31/19 07:00 94 22 106/55 (72) 92 Mechanical Ventilator 40.00 05/31/19 07:00 104 05/31/19 06:00 97 23 124/62 (82) 92 Mechanical Ventilator 40.00 05/31/19 05:00 96 23 113/57 (75) 92 Mechanical Ventilator 40.00 I & O 06/01/19 07:00 Intake Total 752.5 ml Output Total 900 ml Balance -147.5 ml Height & Weight Height: '" Weight: lbs. oz. kg; 27.00 BMI Method: General Appearance: No Apparent Distress, WD/WN, Other (Intubated and sedated) HEENT: Other (Endotracheal tube in place, OG tube in place) Neck: Normal Inspection, Supple Respiratory: No Respiratory Distress, Crackles, Rhonci Cardiovascular: Regular Rate, Rhythm, No Edema Capillary Refill: Less Than 3 Seconds Gastrointestinal: normal bowel sounds, non tender, soft, other (Ventral hernia) Extremity: Normal Inspection, Non Tender, No Pedal Edema Neurologic/Psychiatric: Other (sedated) Skin: Normal Color, Warm/Dry Results Lab Laboratory Tests 05/30/19 08:15 05/31/19 02:20 05/31/19 19:55 06/01/19 03:00 Assessment/Plan Assessment/Plan Acute respiratory failure with pneumonia with Severe sepsis - question of aspiration -Change Abx to Vanco, Zosyn and azithromycin d/c cefepime -Continue vent -Stop sedation and extubate once pt is awake. He is currently on Fi02 of 21%. -Will extubate to high flow NC at 30% and 20liters. -duoneb and solumedrol -Burnett cultures pending -influenza is negative -Check RVP MRSA is negative - D.c Vanco -COVID is neg Acute renal failure -IVF -monitor Hypotension - Levophed - is off -Give another liter bolus of LR Dehydration -IVF Anemia -Monitor KAILEY FROST DO Jun 01, 2019 04:53
[2019-06-01] MEDS ORDERED: FUROSEMIDE 40 MG/4 ML INJ (LASIX) IVP ONE (05:00)
[2019-06-01] MEDS: PIPERACILLIN/TAZOBACTAM (BULK) 4.5 GM in NS (IVPB) 100 ML IV SCH ×3 (05:46→21:18)
[2019-06-01] MEDS: KCL 20 MEQ TAB (K-DUR) PO SCH (05:47)
[2019-06-01] MEDS: MAGNESIUM 1 GM/100 ML IVPB 100 ML IV SCH (05:47)
[2019-06-01] MEDS: POTASSIUM CL 10MEQ/50ML IVPB 50 ML IV SCH (05:47)
[2019-06-01] MEDS ORDERED: TROUGH ORDER-PHARMACY XX ONE (06:00)
[2019-06-01] MEDS: inSUlin ASPART (NovoLOG) 1 UNIT/0.01 ML (CHARGE PER UNIT) SC SCH ×3 (06:02→18:19)
--- NOTE | 2019-06-01 06:38 | NUR ---
0620--Restraints removed, pt awake, following commands, RT and this RN at bedside 0625--Pt extubated to Vapotherm 20L, 30%, pt tolerating well, o2 sat 95%
[2019-06-01] MEDS: PANTOPRAZOLE 40 MG (PROTONIX) VIAL IV SCH ×2 (08:22→21:16)
[2019-06-01] MEDS: AZITHROMYCIN INJECTION 250 MG in NS (IVPB) 250 ML IV SCH (08:23)
[2019-06-01] MEDS: MICONAZOLE 2% POWDER (DESENEX AF) 90 GM TOP SCH ×2 (08:24→21:17)
--- NOTE | 2019-06-01 08:42 | Diagnostic Imaging Report ---
INDICATION: Pneumonia. Time of exam 3:18 AM Correlation is made with prior chest from one day earlier. Support lines and catheters remain in place. Patchy bilateral pulmonary infiltrates persist and show no real change. There appear to be small effusions bilaterally. No pneumothorax. IMPRESSION: Stable bilateral infiltrates and small effusions when compared to examination one day earlier. Dictated by: Dictated on workstation # [id number]
--- NOTE | 2019-06-01 12:29 | Progress Note ---
Subjective Subjective Date Seen by Provider: Jun 01, 2019 Time Seen by Provider: 12:24 83 yo M - extubated this AM -he is asking for something to drink now because his throat is dry. afebrile Review of Systems General: No Chills, No Night Sweats HEENT: No Head Aches, No Visual Changes Pulmonary: No Dyspnea; Cough Cardiovascular: No: Chest Pain, Palpitations Gastrointestinal: No: Nausea, Vomiting Genitourinary: No Dysuria, No Frequency Musculoskeletal: No: neck pain Neurological: Weakness All Other Systems Reviewed All Other Systems Reviewed: Yes Objective Exam Vital Signs Vital Signs Date Time Temp Pulse Resp B/P (MAP) Pulse Ox O2 Delivery O2 Flow Rate FiO2 06/01/19 12:20 103 06/01/19 12:00 36.9 06/01/19 12:00 101 35 122/65 (84) 94 Vapotherm 20.00 30.00 06/01/19 11:00 96 30 131/55 (80) 96 Vapotherm 20.00 30.00 06/01/19 10:00 89 32 129/63 (85) 96 Vapotherm 20.00 30.00 06/01/19 09:39 96 Vapotherm 20.00 30 06/01/19 09:00 92 32 124/66 (85) 93 Vapotherm 20.00 30.00 06/01/19 08:00 89 27 125/56 (79) 94 Vapotherm 20.00 30.00 06/01/19 08:00 36.5 06/01/19 08:00 Vapotherm 30 06/01/19 07:00 78 36 119/54 (75) 92 Vapotherm 20.00 30.00 06/01/19 07:00 82 06/01/19 06:33 93 Vapotherm 20.00 30 06/01/19 06:25 Vapotherm 20.00 30.00 06/01/19 06:00 85 30 141/67 (91) 100 Mechanical Ventilator 21.00 06/01/19 05:00 82 35 142/69 (93) 92 Mechanical Ventilator 21.00 06/01/19 04:00 83 30 147/71 (96) 94 Mechanical Ventilator 21.00 06/01/19 04:00 Mechanical Ventilator 21 06/01/19 03:24 35.8 06/01/19 03:00 57 26 129/70 (89) 92 Mechanical Ventilator 21.00 06/01/19 02:51 82 30 92 21 06/01/19 02:00 89 33 138/71 (93) 94 Mechanical Ventilator 21.00 06/01/19 01:00 85 29 141/67 (91) 94 Mechanical Ventilator 21.00 06/01/19 01:00 83 20 00:00 Mechanical Ventilator 21 06/01/19 00:00 89 34 139/70 (93) 94 Mechanical Ventilator 21.00 05/31/19 23:33 36.7 20 23:00 89 30 133/63 (86) 92 Mechanical Ventilator 21.00 05/31/19 22:49 Mechanical Ventilator 21.00 05/31/19 22:44 76 27 97 21 05/31/19 22:00 80 32 146/70 (95) 97 Mechanical Ventilator 28.00 05/31/19 21:00 76 32 143/74 (97) 97 Mechanical Ventilator 28.00 05/31/19 20:16 Mechanical Ventilator 28.00 05/31/19 20:00 36.7 05/31/19 20:00 82 31 146/76 (99) 100 Mechanical Ventilator 30.00 20 20:00 Mechanical Ventilator 30 05/31/19 19:00 80 30 141/74 (96) 99 Mechanical Ventilator 30.00 20 19:00 Mechanical Ventilator 30.00 05/31/19 19:00 80 05/31/19 18:45 80 24 97 30 05/31/19 18:18 69 05/31/19 18:00 86 31 136/73 (94) 99 Mechanical Ventilator 40.00 20 17:00 84 34 135/70 (91) 98 Mechanical Ventilator 40.00 20 16:00 Mechanical Ventilator 40 20 16:00 86 23 133/68 (89) 97 Mechanical Ventilator 40.00 20 16:00 36.5 1820 15:15 133/68 20 15:00 84 24 131/69 (89) 100 Mechanical Ventilator 40.00 05/31/19 14:33 91 21 94 40 05/31/19 14:00 68 24 137/70 (92) 98 Mechanical Ventilator 40.00 05/31/19 13:00 81 32 134/68 (90) 98 Mechanical Ventilator 40.00 I & O 06/01/19 07:00 Intake Total 1502.5 ml Output Total 1100 ml Balance 402.5 ml General Appearance: No Apparent Distress, WD/WN, Other (Intubated and sedated) Eyes: Bilateral Eye PERRL, Bilateral Eye Other (Bilateral mattering mild) HEENT: Other (Endotracheal tube in place, OG tube in place) Neck: Normal Inspection, Supple Respiratory: Chest Non Tender, Crackles, Rhonci, Other (accessory muscle use- a little seesaw chest/abdomen breathing) Cardiovascular: Regular Rate, Rhythm, No Edema Gastrointestinal: Normal Bowel Sounds, Soft Rectal: Deferred Extremity: Normal Inspection, Non Tender, No Pedal Edema Neurologic/Psychiatric: Alert, Oriented x3, Other (sedated) Skin: Normal Color, Warm/Dry Results Lab Laboratory Tests 05/31/19 17:47: Glucometer 126H 05/31/19 19:55: Hemoglobin 9.6L, Hematocrit 30L 05/31/19 22:53: Glucometer 172H 06/01/19 03:00: Hemoglobin 9.3L, Hematocrit 30L, White Blood Count 10.5, Red Blood Count 3.28L, Mean Corpuscular Volume 90, Mean Corpuscular Hemoglobin 28, Mean Corpuscular Hemoglobin Concent 31L, Red Cell Distribution Width 15.0H, Platelet Count 389, Mean Platelet Volume 9.7, Neutrophils (%) (Auto) 90H, Lymphocytes (%) (Auto) 7L, Monocytes (%) (Auto) 3, Eosinophils (%) (Auto) 0, Basophils (%) (Auto) 0, Neutrophils # (Auto) 9.4H, Lymphocytes # (Auto) 0.7L, Monocytes # (Auto) 0.3, Eosinophils # (Auto) 0.0, Basophils # (Auto) 0.0, Blood Gas Puncture Site RIGHT RADIAL, Blood Gas Patient Temperature 35.8, Arterial Blood pH 7.40, Arterial Blood Partial Pressure CO2 31L, Arterial Blood Partial Pressure O2 59L, Arterial Blood HCO3 19L, Arterial Blood Total CO2 20.2L, Arterial Blood Oxygen Saturation 91L, Arterial Blood Base Excess -4.9L, Butch Test YES-POS, Blood Gas Ventilator Setting YES, Blood Gas Inspired Oxygen 30%, Sodium Level 145, Potassium Level 4.4, Chloride Level 113H, Carbon Dioxide Level 18L, Anion Gap 14, Blood Urea Nitrogen 37H, Creatinine 1.08, Estimat Glomerular Filtration Rate > 60, BUN/Creatinine Ratio 34, Glucose Level 171H, Calcium Level 8.2L, Phosphorus Level 4.6, Magnesium Level 2.0 06/01/19 11:03: Glucometer 168H Microbiology 05/30/19 Gram Stain - Final, Resulted 05/30/19 Sputum Culture - Preliminary, Resulted 05/30/19 Urine Culture - Final, Complete NO GROWTH 05/30/19 Blood Culture - Preliminary, Resulted Gram Negative Coccobacillus Assessment/Plan Assessment/Plan Assessment and Plan 05/31/19 weaning trial started but rr increased and oxygen saturation declined he was placed back on AC and sedated OG tube is bringing up bloody secretions -lovenox held. Pt is on PPI BID IV monitoring Hgb. Continue Vanc/zosyn/azithromycin- 1 blood culture is going gram neg- sent off to [facility] blood pressure is better- pressors are off. -steroids started for his COPD and respiratory failure- but steroids will not be good for his GI bleed. Dr. Ferreira consulted. 06/01/19- extubated. No more blood per OG tube -blood cultures growing gram neg hemophilus species beta lactamase + he is on zosyn which appears to be working- for the pneumonia and bacteremia. If we need better coverage meropenem would be what we switch to. -bedside swallow test Dispo: improved. Problems: (1) Pneumonia (2) Acute on chronic respiratory failure with hypoxia and hypercapnia (3) Acute kidney injury Assessment & Plan: improved (4) COPD with acute lower respiratory infection (5) GI bleed Assessment & Plan: trending hgb- does not appear to be a brisk bleed- could be gastritis along with irritation from placement of OG. (6) Bacteremia due to Gram-negative bacteria Clinical Quality Measures DVT/VTE Risk/Contraindication: Risk Factor Score Per Nursin RFS Level Per Nursing on Admit: 4+=Very High HARRY TRUJILLO MD Jun 01, 2019 12:29
[2019-06-02] VITALS (19 sets, daily range): BP systolic 111–171; BP diastolic 58–100
[2019-06-02] MEDS: inSUlin ASPART (NovoLOG) 1 UNIT/0.01 ML (CHARGE PER UNIT) SC SCH ×3 (00:41→12:59)
[2019-06-02] MEDS: methylPREDNISolone 40 MG/ML (Solu-MEDROL) VIAL IV SCH ×4 (02:24→21:31)
[2019-06-02] MEDS: RT-ALBUTEROL/IPRATROPIUM 3 ML (DUONEB) VIAL INH SCH ×6 (02:42→21:15)
[2019-06-02 03:05] LABS: ABG BASE EXCESS 0.8 MMOL/L (-2.5-2.5); ABG OXYGEN SATURATION 96 % (94-100); ABG PCO2 40 MMHG (35-45); ABG PH 7.41 (7.37-7.43); ABG PO2 90 MMHG (79-93)
[2019-06-02 03:06] LABS: ALLENS TEST YES-POS; BASOPHILS % (AUTO) 0 % (0-10); EOSINOPHILS % (AUTO) 0 % (0-10); HEMATOCRIT 29 % (40-54); HEMOGLOBIN 9.3 G/DL (13.3-17.7); INSPIRED O2 30%; LYMPHOCYTES # (AUTO) 0.8 X 10^3 (1.0-4.0); LYMPHOCYTES % (AUTO) 4 % (12-44); MEAN CORPUSCULAR HEMOGLOBIN 29 PG (25-34); MEAN CORPUSCULAR HGB CONC 32 G/DL (32-36); MEAN CORPUSCULAR VOLUME 89 FL (80-99); MEAN PLATELET VOLUME 9.8 FL (7.4-10.4); MONOCYTES # (AUTO) 1.2 X 10^3 (0.0-1.0); MONOCYTES % (AUTO) 5 % (0-12); NEUTROPHILS # (AUTO) 19.6 X 10^3 (1.8-7.8); NEUTROPHILS % (AUTO) 91 % (42-75); PATIENT TEMP 37.6; PLATELET COUNT 394 10^3/uL (130-400); VENTILATOR YES; WHITE BLOOD COUNT 21.6 10^3/uL (4.3-11.0)
[2019-06-02 03:24] LABS: BUN/CREATININE RATIO 40; CALCIUM 8.1 MG/DL (8.5-10.1); CARBON DIOXIDE 22 MMOL/L (21-32); CHLORIDE 114 MMOL/L (98-107); CREATININE SERUM 1.08 MG/DL (0.60-1.30); GFR ESTIMATED > 60; GLUCOSE 150 MG/DL (70-105); MAGNESIUM 2.3 MG/DL (1.6-2.4); PHOSPHORUS 3.6 MG/DL (2.3-4.7); POTASSIUM 3.3 MMOL/L (3.6-5.0); SODIUM 149 MMOL/L (135-145)
[2019-06-02 03:26] LABS: BAND NEUTROPHILS 7 %; NEUTROPHILS % (MANUAL) 86 %
[2019-06-02 03:27] LABS: LYMPHOCYTES % (MANUAL) 1 %; MONOCYTES % (MANUAL) 6 %; RBC MORPH NORMAL
[2019-06-02] MEDS: MAGNESIUM 1 GM/100 ML IVPB 100 ML IV SCH (04:09)
[2019-06-02] MEDS: POTASSIUM CL 10MEQ/50ML IVPB 50 ML IV SCH (04:09)
[2019-06-02] MEDS: KCL 20 MEQ TAB (K-DUR) PO SCH (04:10)
[2019-06-02] MEDS ORDERED: POTASSIUM CL 10MEQ/50ML IVPB 50 ML IV ONE ×4 (05:00→07:30)
[2019-06-02] MEDS: PIPERACILLIN/TAZOBACTAM (BULK) 4.5 GM in NS (IVPB) 100 ML IV SCH (05:27)
--- NOTE | 2019-06-02 06:27 | Pulmonary Progress Note ---
Subjective Date Seen by a Provider: Jun 02, 2019 Time Seen by a Provider: 06:26 Subjective/Events-last exam Currently on BiPAP. Sepsis Event Evaluation Height, Weight, BMI Height: '" Weight: lbs. oz. kg; 27.00 BMI Method: Exam Exam Vital Signs Date Time Temp Pulse Resp B/P (MAP) Pulse Ox O2 Delivery O2 Flow Rate FiO2 06/02/19 06:00 93 24 138/65 (89) 99 NIV Bilevel 30.00 06/02/19 05:00 80 28 136/63 (87) 96 NIV Bilevel 30.00 06/02/19 04:00 96 NIV Bilevel 40 06/02/19 04:00 85 19 141/72 (95) 98 NIV Bilevel 30.00 06/02/19 03:20 37.6 06/02/19 03:00 84 28 138/69 (92) 98 NIV Bilevel 30.00 06/02/19 02:39 84 32 99 30.00 06/02/19 02:30 NIV Bilevel 30.00 06/02/19 02:00 82 34 130/100 (110) 100 NIV Bilevel 40.00 06/02/19 01:00 89 06/02/19 01:00 85 30 130/70 (90) 96 NIV Bilevel 40.00 06/02/19 00:00 87 26 135/67 (89) 100 NIV Bilevel 40.00 06/02/19 00:00 96 NIV Bilevel 40 06/01/19 23:00 92 32 123/105 (111) 97 NIV Bilevel 40.00 06/01/19 22:41 87 25 97 40.00 06/01/19 22:00 86 30 128/63 (84) 98 NIV Bilevel 40.00 06/01/19 21:00 95 29 126/63 (84) 98 NIV Bilevel 40.00 06/01/19 20:50 37.3 06/01/19 20:00 100 38 111/61 (78) 97 NIV Bilevel 40.00 06/01/19 20:00 96 NIV Bilevel 40 06/01/19 19:20 NIV Bilevel 40.00 06/01/19 19:03 101 34 96 40.00 06/01/19 19:00 105 06/01/19 19:00 105 31 130/64 (86) 81 Vapotherm 20.00 30.00 06/01/19 18:00 98 35 126/64 (84) 91 Vapotherm 20.00 30.00 06/01/19 17:00 97 35 134/69 (90) 93 Vapotherm 20.00 30.00 06/01/19 16:00 101 25 130/76 (94) 93 Vapotherm 20.00 30.00 06/01/19 16:00 Vapotherm 30 06/01/19 15:55 36.8 06/01/19 15:00 101 29 124/73 (90) 94 Vapotherm 20.00 30.00 06/01/19 14:20 93 Vapotherm 20.00 30 06/01/19 14:00 102 35 122/64 (83) 93 Vapotherm 20.00 30.00 06/01/19 13:00 103 35 130/68 (88) 94 Vapotherm 20.00 30.00 06/01/19 12:20 103 06/01/19 12:00 Vapotherm 30 06/01/19 12:00 36.9 06/01/19 12:00 101 35 122/65 (84) 94 Vapotherm 20.00 30.00 06/01/19 11:00 96 30 131/55 (80) 96 Vapotherm 20.00 30.00 06/01/19 10:00 89 32 129/63 (85) 96 Vapotherm 20.00 30.00 06/01/19 09:39 96 Vapotherm 20.00 30 06/01/19 09:00 92 32 124/66 (85) 93 Vapotherm 20.00 30.00 06/01/19 08:00 89 27 125/56 (79) 94 Vapotherm 20.00 30.00 06/01/19 08:00 36.5 06/01/19 08:00 Vapotherm 30 06/01/19 07:00 78 36 119/54 (75) 92 Vapotherm 20.00 30.00 06/01/19 07:00 82 06/01/19 06:33 93 Vapotherm 20.00 30 I & O 06/02/19 07:00 Intake Total 510 ml Output Total 3075 ml Balance -2565 ml Height & Weight Height: '" Weight: lbs. oz. kg; 27.00 BMI Method: General Appearance: No Apparent Distress, WD/WN, Other (Intubated and sedated) HEENT: Other (Endotracheal tube in place, OG tube in place) Neck: Normal Inspection, Supple Respiratory: Chest Non Tender, Crackles, Rhonci, Other (accessory muscle use- a little seesaw chest/abdomen breathing) Cardiovascular: Regular Rate, Rhythm, No Edema Capillary Refill: Less Than 3 Seconds Gastrointestinal: normal bowel sounds, non tender, soft, other (Ventral hernia) Extremity: Normal Inspection, Non Tender, No Pedal Edema Neurologic/Psychiatric: Alert, Oriented x3, Other (sedated) Skin: Normal Color, Warm/Dry Results Lab Laboratory Tests 05/31/19 19:55 06/01/19 03:00 06/02/19 02:55 Assessment/Plan Assessment/Plan Acute respiratory failure with pneumonia with Severe sepsis - question of aspiration -Change Abx to Vanco, Zosyn and azithromycin d/c cefepime -extubated 05/31 -Start PT/OT -Currently on BiPAP - trial back to Vapotherm this AM -duoneb and solumedrol -[place]ett cultures pending -influenza is negative MRSA is negative - D.c Vanco -COVID is neg Acute renal failure -IVF -monitor Dehydration -IVF Anemia -Monitor KAILEY FROST DO Jun 02, 2019 06:27
[2019-06-02] MEDS: RT-BUDESONIDE NEBS 0.5 MG/2ML (PULMICORT) AMP INH SCH ×2 (07:02→17:55)
[2019-06-02] MEDS: ENOXAPARIN 40 MG/0.4 ML (LOVENOX) SYR SC SCH (07:31)
[2019-06-02] MEDS: PANTOPRAZOLE 40 MG (PROTONIX) VIAL IV SCH ×2 (08:31→21:31)
[2019-06-02] MEDS: AZITHROMYCIN INJECTION 250 MG in NS (IVPB) 250 ML IV SCH (08:32)
[2019-06-02] MEDS: 1/2 NS IV SOLUTION 1,000 ML IV SCH ×2 (08:43→18:20)
[2019-06-02] MEDS: MICONAZOLE 2% POWDER (DESENEX AF) 90 GM TOP SCH ×2 (09:03→21:31)
--- NOTE | 2019-06-02 09:24 | Physical Therapy Evaluation ---
PT Evaluation-General Medical Diagnosis Admission Date May 30, 2019 at 01:30 Medical Diagnosis: pneumonia/respiratory failure/hypoxia/COPD Onset Date: May 30, 2019 Therapy Diagnosis Therapy Diagnosis: generalized weakness/debility Precautions Precautions/Isolations: Fall Prevention, Standard Precautions Referral Physician: Hanna Reason for Referral: Evaluation/Treatment Medical History Pertinent Medical History: COPD (O2 dependent 2-3L), HTN, Renal Insufficiency Additional Medical History Dens fracture (refuses to wear collar) Current History EMS from [facility] with SOA Reviewed History: Yes Social History Home: Prison Prior Prior Level of Function SCALE: Activities may be completed with or without assistive devices. 4-Qsmkqzminc-mcrwdvw completes the activity by him/herself with no assistance from a helper. 5-Set-up or Clean-up Assistance-helper sets up or cleans up; patient completes activity. [place] assists only prior to or following the activity. 4-Supervision or Touching Assistance-helper provides verbal cues and/or touching/steadying and/or contact guard assistance as patient completes activity. Assistance may be provided throughout the activity or intermittently. 3-Partial/Moderate Assistance-helper does LESS THAN HALF the effort. [place] lifts, holds or supports trunk or limbs, but provides less than half the effort. 2-Substantial/Maximal Assistance-helper does MORE THAN HALF the effort. [place] lifts or holds trunk or limbs and provides more than half the effort. 7-Miwlujaty-njjlap does ALL the effort. Patient does none of the effort to complete the activity. Or, the assistance of 2 or more helpers is required for the patient to complete the activity. If activity was not attempted, code reason: 7-Patient Refused. 9-Not Applicable-not attempted and the patient did not perform the activity before the current illness, exacerbation or injury. 10-Not Attempted due to Environmental Limitations-(lack of equipment, weather restraints, etc.). 88-Not Attempted due to Medical Conditions or Safety Concerns. Bed Mobility: 2 Transfers (B,C,W/C): 2 Gait: 2 Stairs: 9 Indoor Mobility (Ambulation): Needed Some Help Stairs: Not [place] Prior Devices Use: Manual wheelchair, Walker per family patient is in w/c more than ambulating PT Evaluation-Current Subjective Patient agrees to PT. Agrees up to recliner. Pain Numeric Pain Scale: 0-No Pain Location: No Pain Reported Objective Patient Orientation: Person, Situation Attachments: Oxygen (vapotherm), Roberts Catheter, IV ROM/Strength ROM Lower Extremities bilateral LE WFL Strength Lower Extremities 2/5 grossly bilateral LE Integumentary/Posture Integumentary refer to nursing notes Bowel Incontinence: Yes Bladder Incontinence: Roberts Cath Posture cervical flexed posture Neuromuscular (Tone, Coordination, Reflexes) severely diminished due to inactivity and motivation Sensory Vision: Functional Hearing: Impaired Sensation Right Lower Extremit: Impaired Sensation Left Lower Extremity: Impaired Transfers Roll Left to Right (QC): 1 Lying to Sitting/Side of Bed(Q: 1 Sit to Stand (QC): 1 Chair/Qli-mq-Ggdfl Xfer(QC): 1 dependent with all mobility and unable to assist with bed mobility and SPT bed to recliner/patient required assistance to maintain sitting EOB Gait Does the Patient Walk?: No and Walking Goal IS indicated Mode of Locomotion: Both Anticipated Mode of Locomotion: Both Balance Sitting Static: Poor Sitting Dynamic: Poor Standing Static: Poor Standing Dynamic: Poor Assessment/Needs 83 y.o. male, will benefit from skilled PT to address functional strength and mobility to improve current LOF to safely return to NH at maximum LOF. Per RN from family, patient is not too motivated to perform physical activity. Rehab Potential: Guarded PT Printer Helper Goals Printer Helper Goals PT Intermediate Goals Time Frame: June 21, 2019 Roll Left & Right (QC): 4 Sit to Lying (QC): 4 Lying-Sitting on Side/Bed(QC): 4 Sit to Stand (QC): 3 Chair/Xns-my-Wfmta Xfer(QC): 3 Toilet Transfer (QC): 3 Does the Patient Walk: No and Walking Goal IS indicated Walk 10 feet (QC): 3 PT Plan Problem List Problem List: Activity Tolerance, Functional Strength, Safety, Balance, Gait, Transfer, Bed Mobility Treatment/Plan Treatment Plan: Continue Plan of Care Treatment Plan: Bed Mobility, Education, Functional Activity Joe, Functional Strength, Gait, Safety, Therapeutic Exercise, Transfers Treatment Duration: June 21, 2019 Frequency: 6 times per week Estimated Hrs Per Day: .5 hour per day Discharge Recommendations Therapy Discharge Recommendati: Other, See Comments (usp facility) Time/GCodes Time In: 851 Time Out: 907 Total Billed Treatment Time: 16 Total Billed Treatment 1 visit EVMod 16 BRI Bynum PT Jun 02, 2019 09:24
--- NOTE | 2019-06-02 10:22 | ST Dysphagia Evaluation ---
Speech Evaluation-General Medical Diagnosis pneumonia/respiratory failure/hypoxia/COPD Onset Date: May 30, 2019 Therapy Diagnosis Therapy Diagnosis: Oropharyngeal Dysphagia Precautions Precautions: Aspiration Referral Referring Physician: Dr. Ferreira Medical History Pertinent Medical History: COPD (O2 dependent 2-3L), HTN, Renal Insufficiency Reviewed History: Yes Social History Home: Long Term Speech PLF/Current-Dysphagia Prior Level of Function Patient lives in a local intermediate where his needs were met. His diet level at the ME is unknown. Subjective Patient was sitting up in his chair. He stated he was really thirsty. He was cooperative with the Bedside Dysphagia Evaluation. Patient is noted to be NIKOLAI. Cognitive Status Patient Orientation: Person, Place, Situation Oral Motor Skills Dentition: Edentalous Ability to Follow Directions: Good Oral Expression Ability: No Impairment Voice Voice Phonatory-Based Quality: Hoarse Voice Pitch: Mildly Low Voice Loudness: Mildly Soft/Quiet Face Facial Symmetry: Symmetrical Oral-Facial Assessment Oral-Facial Dentition: Normal Labial Seal Description: Weak Puff Cheeks: Reduced Strength Lingual Protrusion: Normal Lingual ROM: Normal Lingual Strength: Abnormal Lingual strength is weak Pharynx Velopharyngeal Move.: Normal Volitional Dry Swallow: Yes Voluntary Cough: Yes Can Clear Throat Volitionally: Yes Productive Cough: Yes Dysphagia Evaluation Consistencies Presented: Thin Liquid, Mechanical Soft, Pureed Patient was not presented the regular due to being edentulous Oral phase is within normal range of function for consistencies presented. Pharyngeal phase is within normal range of function for consistencies presented. Dietary Recommendations: Mechanical Soft Liquid Recommendations: Thin Swallowing Precautions: Alternate Liquids/Solids, Double Swallow, Decreased Bolus 1/2 Tsp, Liquids from Straw, Small Bites and Sips, Sitting Upright 90 Degrees, Sitting 90 Degrees 30 Post Intake Dysphagia Evaluation Summary Patient is an 83 year old man who resides in a local intermediate. He was admitted to the hospital due to SOB and respiratory failure. Patient was intubated upon admission. He was extubated this date with physician referral for BDE. The patient was pleasant and compliant with the evaluation. The patient was presented 1/2 tsp of thin liquid x2 and small sips via straw without difficulty. The patient was also presented 1/2 tsp bite size of puree and mechanical soft without difficulty. No pocketing or oral residue noted. Patient was not given regular texture due to edentulous state. Patient is recommended for Dysphagia II diet level with thin liquids. This information was provided to his nurse and written on the white board in his room. Speech-Plan Patient/Family Goals Patient/Family Goals: Patient will return to the intermediate with diet recommendations. Treatment Plan Speech Therapy Treatment Plan: Discontinue ST Treatment Duration: Jun 02, 2019 Frequency: 1 time per week Estimated Hrs Per Day: .25 hour per day Rehab Potential: Guarded Barriers to Learning: Patient's age and medical status Pt/Family Agrees to Plan: Yes Safety Risks/Education Teaching Recipient: Patient Teaching Methods: Demonstration, Discussion Response to Teaching: Verbalize Understanding, Return Demonstration Education Topics Provided: Safety of oral intake and diet level Time Speech Therapy Time In: 10:00 Speech Therapy Time Out: 10:15 Total Billed Time: 15 Billed Treatment Time Zandra TORREY Zamora Jun 02, 2019 10:22
[2019-06-02] MEDS ORDERED: cefTRIAXone 1,000 MG/SWFI 10 ML IV PUSH IV SCH ×2 (12:00)
--- NOTE | 2019-06-02 13:49 | NUR ---
CM/SS following for discharge plans. Plan: The patient will return to a custodial facility. CM/SS attempted to visit with the patient; however, the patient was difficult to understand. The patient stated that this ss could contact his but the is not listed on the face sheet as an emergency contact. CM/SS attempted to contact damien Hernandez ([phone]) to discuss discharge planning. She did not answer; a voice mail was left. CM/SS was informed that family may not want him to return to [facility] [place]. Will continue to follow.
--- NOTE | 2019-06-02 14:31 | Occupational Therapy Eval ---
OT Evaluation-General/PLF Medical Diagnosis Admission Date May 30, 2019 at 01:30 Medical Diagnosis: pneumonia/respiratory failure/hypoxia/COPD Onset Date: May 30, 2019 Therapy Diagnosis Therapy Diagnosis: Decreased ADL status Precautions Precautions/Isolations: Fall Prevention, Standard Precautions Safety Interventions: None Referral Physician: Hanna Referral Reason: Activity Tolerance, Self Care, Evaluation/Treatment, Strengthening/ROM Medical History Pertinent Medical History: COPD (O2 dependent 2-3L), HTN, Renal Insufficiency Additional Medical History HTN, COPD, GERD, [place], chronic back pain, hx of skin Ca, 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 5-Npqqnoibwb-kxolynr completes the activity by him/herself with no assistance from a helper. 5-Set-up or Clean-up Assistance-helper sets up or cleans up; patient completes activity. [place] assists only prior to or following the activity. 4-Supervision or Touching Assistance-helper provides verbal cues and/or touching/steadying and/or contact guard assistance as patient completes activity. Assistance may be provided throughout the activity or intermittently. 3-Partial/Moderate Assistance-helper does LESS THAN HALF the effort. [place] lifts, holds or supports trunk or limbs, but provides less than half the effort. 2-Substantial/Maximal Assistance-helper does MORE THAN HALF the effort. [place] lifts or holds trunk or limbs and provides more than half the effort. 6-Cfyeofpar-yckcpf does ALL the effort. Patient does none of the effort to complete the activity. Or, the assistance of 2 or more helpers is required for the patient to complete the activity. If activity was not attempted, code reason: 7-Patient Refused. 9-Not Applicable-not attempted and the patient did not perform the activity before the current illness, exacerbation or injury. 10-Not Attempted due to Environmental Limitations-(lack of equipment, weather restraints, etc.). 88-Not Attempted due to Medical Conditions or Safety Concerns. ADL PLOF Comments Pt expresses he was IND with all tasks. Pt was resident of [facility] Self Care: Needed Some Help Functional Cognition: Unknown DME/Equipment Comments states use of walker for fx amb Drive Self: No OT Current Status Subjective Pt seen sitting upright in recliner chair. Pt agrees to OT eval/ treat. Denies pain. Mental Status/Objective Patient Orientation: Person States date is 1998, does not know where he is, states he lives at home in [place] Attachments: Oxygen (BiPAP) Current Glasses/Contacts: No Hearing Aids: No Dentures/Partials: No (states "I have no teeth") Hand Dominance: Left Upper Extremity ROM Decreased BUE (due to strength) PROM WFL Upper Extremity Coordination Decreased bilaterally Upper Extremity Sensation DNT Upper Extremity Strength Decreased bilaterally (2-3/5 all UE joints) ADL-Treatment Eating (QC): 3 (Mod A- pt requires assist holding cup during drinking task) Oral Hygiene (QC): 3 (Min A, pt requires assist with holding sponge item in mouth intermittently. pt requires assist for thoroughness) Other Treatments Pt seen in recliner chair. Pt educated on OT role, pt completes AROM/ PROM/ MMT. Pt educated on moving every joint to exercise and gain strength, pt completes wrist pumps. Pt states he lives at home in [place] and states did not need assist with ADLs prior, per chart pt resides at [facility]. Pt difficult to understand, mouth full of mucous; pt agrees to brush mouth out. Pt given sponge and water, completes oral hygiene and drinking water with min-mod A. Pt educated on continuation of therapy to increase strength/ AROM. Pt agrees, all needs met, call light in reach. Education OT Patient Education: Correct positioning, Exercise program, Purpose of tx/functional activities, Safety issues Teaching Recipient: Patient Teaching Methods: Demonstration, Discussion Response to Teaching: Verbalize Understanding, Return Demonstration, Reinforcement Needed OT Short Term Goals Short Term Goals Eatin Oral hygiene: 5 Upper body dressin OT Mason Tender Restoration Labor Goals Mason Tender Restoration Labor Goals Time Frame: Jun 09, 2019 Eating (QC): 6 Oral Hygiene (QC): 6 Toileting Hygiene (QC): 3 Shower/Bathe Self (QC): 3 Upper Body Dressing (QC): 5 Lower Body Dressing (QC): 5 On/Off Footwear (QC): 4 Additional Goals: 1-Demonstrate ADL Tasks, 2-Verbalize Understanding, 3- ImproveStrength/Joe 1=Demonstrate adherence to instructed precautions during ADL tasks. 2=Patient will verbalize/demonstrate understanding of assistive devices/modifications for ADL. 3=Patient will improve strength/tolerance for activity to enable patient to perform ADL's. OT Education/Plan Problem List/Assessment Assessment: Decreased Activ Tolerance, Decreased UE Strength, Dependent Transfers, Impaired Cognition, Impaired Coordination, Impaired Funct Balance, Impaired I ADL's, Impaired Self-Care Skills Discharge Recommendations Plan/Recommendations: Continue POC Therapy Discharge Recommendati: 24 Hour Supervision, Post Acute OT Treatment Plan/Plan of Care Treatment,Training & Education: Yes Patient would benefit from OT for education, treatment and training to promote independence in ADL's, mobility, safety and/or upper extremity function for ADL's. Plan of Care: ADL Retraining, Functional Mobility, UE Funct Exercise/Act, W/C Management Training Treatment Duration: Jun 09, 2019 Frequency: 5 times per week Estimated Hrs Per Day: .25 hour per day Agreement: Yes Rehab Potential: Guarded Time/GCodes Start Time: 13:20 Stop Time: 13:41 Total Time Billed (hr/min): 21 Billed Treatment Time DEMAR De Paz (21) JER BARBOSA OTR Jun 02, 2019 14:31
--- NOTE | 2019-06-02 14:45 | NUR ---
Pastoral care visit.
[2019-06-02 16:20] LABS: RSV PCR TEST Not Detected (Not Detected)
--- NOTE | 2019-06-02 17:20 | Progress Note ---
Subjective Subjective Date Seen by Provider: Jun 02, 2019 Time Seen by Provider: 08:30 83 yo M - Pt talking this AM. He says he feels better- he would like to go home. He required BiPAP last night but was changed back to vapotherm this AM. Review of Systems General: No Chills, No Night Sweats HEENT: No Head Aches, No Visual Changes Pulmonary: No Dyspnea; Cough Cardiovascular: No: Chest Pain, Palpitations Gastrointestinal: No: Nausea, Vomiting Genitourinary: No Dysuria, No Frequency Musculoskeletal: No: neck pain Neurological: Weakness All Other Systems Reviewed All Other Systems Reviewed: Yes Objective Exam Vital Signs Vital Signs - First Documented 05/30/19 05/30/19 00:45 02:15 Temp 38.4 Pulse 96 Resp 26 B/P (MAP) 111/67 (82) Pulse Ox 95 O2 Delivery Nasal Cannula O2 Flow Rate 3.00 FiO2 60 Capillary Refill : Less Than 3 Seconds General Appearance: No Apparent Distress, WD/WN, Other (Intubated and sedated) Eyes: Bilateral Eye PERRL, Bilateral Eye Other (Bilateral mattering mild) HEENT: Other (Endotracheal tube in place, OG tube in place) Neck: Normal Inspection, Supple Respiratory: Chest Non Tender, Crackles, Rhonci, Other (accessory muscle use- ) Cardiovascular: Regular Rate, Rhythm, No Edema Gastrointestinal: Normal Bowel Sounds, Soft Rectal: Deferred Extremity: Normal Inspection, Non Tender, No Pedal Edema Neurologic/Psychiatric: Alert, Oriented x3, Other (sedated) Skin: Normal Color, Warm/Dry Results Lab Laboratory Tests 06/01/19 17:50: Glucometer 139H 06/02/19 00:40: Glucometer 142H 06/02/19 02:55: White Blood Count 21.6H, Red Blood Count 3.23L, Hemoglobin 9.3L, Hematocrit 29L, Mean Corpuscular Volume 89, Mean Corpuscular Hemoglobin 29, Mean Corpuscular Hemoglobin Concent 32, Red Cell Distribution Width 15.0H, Platelet Count 394, Mean Platelet Volume 9.8, Neutrophils (%) (Auto) 91H, Lymphocytes (%) (Auto) 4L, Monocytes (%) (Auto) 5, Eosinophils (%) (Auto) 0, Basophils (%) (Auto) 0, Neutrophils # (Auto) 19.6H, Lymphocytes # (Auto) 0.8L, Monocytes # (Auto) 1.2H, Eosinophils # (Auto) 0.0, Basophils # (Auto) 0.0, Neutrophils % (Manual) 86, Lymphocytes % (Manual) 1, Monocytes % (Manual) 6, Band Neutrophils 7, Blood Morphology Comment NORMAL, Blood Gas Puncture Site LEFT RADIAL, Blood Gas Patient Temperature 37.6, Arterial Blood pH 7.41, Arterial Blood Partial Pressure CO2 40, Arterial Blood Partial Pressure O2 90, Arterial Blood HCO3 25, Arterial Blood Total CO2 26.0, Arterial Blood Oxygen Saturation 96, Arterial Blood Base Excess 0.8, Butch Test YES-POS, Blood Gas Ventilator Setting YES, Blood Gas Inspired Oxygen 30%, Sodium Level 149H, Potassium Level 3.3L, Chloride Level 114H, Carbon Dioxide Level 22, Anion Gap 13, Blood Urea Nitrogen 43H, Creatinine 1.08, Estimat Glomerular Filtration Rate > 60, BUN/Creatinine Ratio 40, Glucose Level 150H, Calcium Level 8.1L, Phosphorus Level 3.6, Magnesium Level 2.3 06/02/19 11:47: Glucometer 126H Microbiology 05/30/19 Gram Stain - Final, Complete 05/30/19 Sputum Culture - Final, Complete Usual upper respiratory trell Haemophilus influenza 05/30/19 Urine Culture - Final, Complete NO GROWTH 05/30/19 Blood Culture - Final, Complete Haemophilus influenza Assessment/Plan Assessment/Plan Assessment and Plan 05/31/19 weaning trial started but rr increased and oxygen saturation declined he was placed back on AC and sedated OG tube is bringing up bloody secretions -lovenox held. Pt is on PPI BID IV monitoring Hgb. Continue Vanc/zosyn/azithromycin- 1 blood culture is going gram neg- sent off to [facility] blood pressure is better- pressors are off. -steroids started for his COPD and respiratory failure- but steroids will not be good for his GI bleed. Dr. Ferreira consulted. 06/01/19- extubated. No more blood per OG tube -blood cultures growing gram neg hemophilus species beta lactamase + he is on zosyn which appears to be working- for the pneumonia and bacteremia. If we need better coverage meropenem would be what we switch to. -bedside swallow test 06/02/19- hypernatremia starting IVF 02/13 NS changed ceftriaxone as it will treat both his H.infl pneumonia and bacteremia -need to get him back to nasal cannula (baseline is 2-3 L oxygen NC) and then d/c to home. Dispo: improved. Problems: (1) Pneumonia Qualifiers: (2) Acute on chronic respiratory failure with hypoxia and hypercapnia (3) Acute kidney injury Assessment & Plan: improved (4) COPD with acute lower respiratory infection (5) GI bleed Assessment & Plan: trending hgb- does not appear to be a brisk bleed- could be gastritis along with irritation from placement of OG. (6) Bacteremia due to Gram-negative bacteria (7) Acute hypernatremia Clinical Quality Measures DVT/VTE Risk/Contraindication: Risk Factor Score Per Nursin RFS Level Per Nursing on Admit: 4+=Very High HARRY TRUJILLO MD Jun 02, 2019 17:20
[2019-06-03] MEDS: RT-ALBUTEROL/IPRATROPIUM 3 ML (DUONEB) VIAL INH SCH ×6 (01:58→21:14)
[2019-06-03 04:00] VITALS: BP 178/77
[2019-06-03] MEDS: 1/2 NS IV SOLUTION 1,000 ML IV SCH ×3 (04:17→23:59)
[2019-06-03] MEDS: ENOXAPARIN 40 MG/0.4 ML (LOVENOX) SYR SC SCH (06:26)
[2019-06-03] MEDS: RT-BUDESONIDE NEBS 0.5 MG/2ML (PULMICORT) AMP INH SCH ×2 (07:44→18:11)
[2019-06-03 08:00] VITALS: BP 164/84
--- NOTE | 2019-06-03 08:46 | Physical Therapy Daily Note ---
PT Daily Note-Current Subjective Pt has limited speech due to respiratory issues. He is alert and agreeable to therapy. Mental Status Patient Orientation: Person, Place, Time, Situation Attachments: Oxygen, IV Transfers SCALE: Activities may be completed with or without assistive devices. 1-Xwkjomutuu-tvksmhx completes the activity by him/herself with no assistance from a helper. 5-Set-up or Clean-up Assistance-helper sets up or cleans up; patient completes activity. [place] assists only prior to or following the activity. 4-Supervision or Touching Assistance-helper provides verbal cues and/or touching/steadying and/or contact guard assistance as patient completes activity. Assistance may be provided throughout the activity or intermittently. 3-Partial/Moderate Assistance-helper does LESS THAN HALF the effort. [place] lifts, holds or supports trunk or limbs, but provides less than half the effort. 2-Substantial/Maximal Assistance-helper does MORE THAN HALF the effort. [place] lifts or holds trunk or limbs and provides more than half the effort. 5-Bjrhgtqwn-seokkq does ALL the effort. Patient does none of the effort to complete the activity. Or, the assistance of 2 or more helpers is required for the patient to complete the activity. If activity was not attempted, code reason: 7-Patient Refused. 9-Not Applicable-not attempted and the patient did not perform the activity befo re the current illness, exacerbation or injury. 10-Not Attempted due to Environmental Limitations-(lack of equipment, weather re straints, etc.). 88-Not Attempted due to Medical Conditions or Safety Concerns. Roll Left & Right (QC): 1 Sit to Lying (QC): 1 Lying to Sitting/Side of Bed(Q: 1 Gait Training Does the Patient Walk?: No and Walking Goal IS indicated Exercises Supine Ex: LE Protocol Supine Reps: 12 moderate assist for all supine ex, with (L) LE requiring more assist than (R). Treatments Performed supine to sit and then sat edge of bed for 5 minutes to work on posture and self righting while seated. Pt initially was not able to self right and required max assist to remain upright. He was eventually able to self right and sat without assistance for 30 seconds. Assessment Current Status: Fair Progress Pt would benefit from continued treatment to improve his mobility and progress to transfers to allow him to sit upright longer. PT Governor Assembler Goals Mcc Goals PT Mcc Goals Time Frame: June 21, 2019 Roll Left & Right (QC): 4 Sit to Lying (QC): 4 Lying-Sitting on Side/Bed(QC): 4 Sit to Stand (QC): 3 Chair/Nth-pc-Lqljk Xfer(QC): 3 Toilet Transfer (QC): 3 Does the Patient Walk: No and Walking Goal IS indicated Walk 10 feet (QC): 3 PT Plan Treatment/Plan Treatment Plan: Continue Plan of Care Treatment Plan: Bed Mobility, Education, Functional Activity Joe, Functional Strength, Gait, Safety, Therapeutic Exercise, Transfers Treatment Duration: June 21, 2019 Frequency: 6 times per week Estimated Hrs Per Day: .5 hour per day Patient and/or Family Agrees t: Yes Time/GCodes Time In: 0815 Time Out: 0840 Total Billed Treatment Time: 25 Total Billed Treatment 1, ex (15), fa (10) MARK FRANKLIN PT Jun 03, 2019 08:46
[2019-06-03] MEDS: methylPREDNISolone 40 MG/ML (Solu-MEDROL) VIAL IV SCH ×2 (08:51→20:13)
[2019-06-03] MEDS: MICONAZOLE 2% POWDER (DESENEX AF) 90 GM TOP SCH ×2 (08:52→20:14)
[2019-06-03] MEDS: PANTOPRAZOLE 40 MG (PROTONIX) VIAL IV SCH ×2 (08:52→20:13)
[2019-06-03 09:05] LABS: BASOPHILS % (AUTO) 0 % (0-10); EOSINOPHILS % (AUTO) 0 % (0-10); HEMATOCRIT 29 % (40-54); LYMPHOCYTES % (AUTO) 9 % (12-44); MEAN CORPUSCULAR HEMOGLOBIN 28 PG (25-34); MEAN CORPUSCULAR HGB CONC 31 G/DL (32-36); MEAN CORPUSCULAR VOLUME 92 FL (80-99); MEAN PLATELET VOLUME 9.6 FL (7.4-10.4); MONOCYTES % (AUTO) 8 % (0-12); NEUTROPHILS % (AUTO) 83 % (42-75); PLATELET COUNT 305 10^3/uL (130-400); RED CELL DISTRIBUTION WIDTH 15.3 % (10.0-14.5)
[2019-06-03 09:22] LABS: ALBUMIN 2.5 GM/DL (3.2-4.5)
[2019-06-03 09:23] LABS: CHLORIDE 114 MMOL/L (98-107); POTASSIUM 3.7 MMOL/L (3.6-5.0); SODIUM 147 MMOL/L (135-145)
[2019-06-03 09:24] LABS: BAND NEUTROPHILS 6 %; BASOPHILS % (MANUAL) 0 %; CALCIUM 8.3 MG/DL (8.5-10.1); EOSINOPHILS % (MANUAL) 0 %; LYMPHOCYTES % (MANUAL) 14 %; MONOCYTES % (MANUAL) 4 %; NEUTROPHILS % (MANUAL) 76 %
[2019-06-03 09:25] LABS: ANISOCYTOSIS SLIGHT; GLUCOSE 131 MG/DL (70-105)
[2019-06-03 09:26] LABS: CARBON DIOXIDE 24 MMOL/L (21-32)
[2019-06-03 09:28] LABS: PHOSPHORUS 2.8 MG/DL (2.3-4.7)
[2019-06-03 09:29] LABS: GFR ESTIMATED > 60
[2019-06-03 09:30] LABS: BUN/CREATININE RATIO 42
[2019-06-03 09:31] LABS: MAGNESIUM 2.2 MG/DL (1.6-2.4)
--- NOTE | 2019-06-03 11:04 | Occupational Ther Daily Note ---
OT Current Status-Daily Note Subjective Pt seen in bed. Pt on BiPAP, difficulty understanding, pt must repeat self multiple times. Oriented to person. Pt agrees to therapy, stating, "I can't have people waiting on me." Mental Status/Objective Patient Orientation: Person Attachments: Oxygen (BiPAP) ADL-Treatment Therapy Code Descriptions/Definitions Functional [place] Measure: 0=Not Assessed/NA 4=Minimal Assistance 1=Total Assistance 5=Supervision or Setup 2=Maximal Assistance 6=Modified [place] 3=Moderate Assistance 7=Complete IndependenceSCALE: Activities may be completed with or without assistive devices. 2-Ntjsbrucox-nrwcuhc completes the activity by him/herself with no assistance from a helper. 5-Set-up or Clean-up Assistance-helper sets up or cleans up; patient completes activity. [place] assists only prior to or following the activity. 4-Supervision or Touching Assistance-helper provides verbal cues and/or touching/steadying and/or contact guard assistance as patient completes activity. Assistance may be provided throughout the activity or intermittently. 3-Partial/Moderate Assistance-helper does LESS THAN HALF the effort. [place] lifts, holds or supports trunk or limbs, but provides less than half the effort. 2-Substantial/Maximal Assistance-helper does MORE THAN HALF the effort. [place] lifts or holds trunk or limbs and provides more than half the effort. 5-Qcjmstlwl-fkepwn does ALL the effort. Patient does none of the effort to complete the activity. Or, the assistance of 2 or more helpers is required for the patient to complete the activity. If activity was not attempted, code reason: 7-Patient Refused. 9-Not Applicable-not attempted and the patient did not perform the activity before the current illness, exacerbation or injury. 10-Not Attempted due to Environmental Limitations-(lack of equipment, weather restraints, etc.). 88-Not Attempted due to Medical Conditions or Safety Concerns. Eating (QC): 3 (mod A- assist to hold water cup at mouth level.) Other Treatment Pt seen at 1000, agrees to therapy. States he has been up out of chair, agrees to ther ex in bed. Pt completes finger manipulation task, requires assist for opposition (full). Pt educated on pink hand sponge squeezes, completes 10 bilaterally, able to transfer sponge hand to hand with min A for shoulder adduction. Pt completes bicep curls (touching shoulders) 10x, and shoulder flexion with assist for full range for both exercises. Pt agrees he needs assist for feeding. Pt educated on built up handle for utensils, pt able to hold in L hand and bring handle to mouth with min A for end range, pt maintains racker octave board throughout. Pt asks for drink of water, completes with max A. Mask repositioned. All needs met, call light in reach. Education OT Patient Education: Correct positioning, Exercise program, Home exercise program, Modified ADL techniques, Progress toward Goal/Update tx plan, Use of adapted equipment Teaching Recipient: Patient Teaching Methods: Demonstration, Discussion Response to Teaching: Verbalize Understanding, Return Demonstration, Reinforcement Needed OT Short Term Goals Short Term Goals Eatin Oral hygiene: 5 Upper body dressin OT Intermediate Goals Spout Positioner Goals Time Frame: Jun 09, 2019 Eating (QC): 6 Oral Hygiene (QC): 6 Toileting Hygiene (QC): 3 Shower/Bathe Self (QC): 3 Upper Body Dressing (QC): 5 Lower Body Dressing (QC): 5 On/Off Footwear (QC): 4 Additional Goals: 1-Demonstrate ADL Tasks, 2-Verbalize Understanding, 3- ImproveStrength/Joe 1=Demonstrate adherence to instructed precautions during ADL tasks. 2=Patient will verbalize/demonstrate understanding of assistive devices/modifications for ADL. 3=Patient will improve strength/tolerance for activity to enable patient to perform ADL's. OT Education/Plan Problem List/Assessment Assessment: Decreased Activ Tolerance, Decreased UE Strength, Dependent Transfers, Edema, Impaired Bed Mobility, Impaired Cognition, Impaired Coordination, Impaired Funct Balance, Impaired I ADL's, Impaired Self-Care S kills Discharge Recommendations Plan/Recommendations: Continue POC Therapy Discharge Recommendati: 24 Hour Supervision Treatment Plan/Plan of Care Treatment,Training & Education: Yes Patient would benefit from OT for education, treatment and training to promote independence in ADL's, mobility, safety and/or upper extremity function for ADL's. Plan of Care: ADL Retraining, Functional Mobility, UE Funct Exercise/Act, W/C Management Training Treatment Duration: Jun 09, 2019 Frequency: 5 times per week Estimated Hrs Per Day: .25 hour per day Agreement: Yes Rehab Potential: Guarded Time/GCodes Start Time: 10:00 Stop Time: 10:20 Total Time Billed (hr/min): 20 Billed Treatment Time 1, EX (20) JER BARBOSA OTR Jun 03, 2019 11:04
[2019-06-03 12:00] VITALS: BP 175/82
[2019-06-03] MEDS: cefTRIAXone 1,000 MG/SWFI 10 ML IV PUSH IV SCH ×2 (13:48)
--- NOTE | 2019-06-03 14:00 | NUR ---
"RD ASSESSMENT PMHx: HTN; COPD; GERD; renal failure PT INTERACTION: Pt was awake and pleasant during nutrition assessment. Pt states current appetite is pretty good. Note avg PO intake <25% x2meal, per chart review. Pt states following a regular diet at home. Pt states having no issues with chewing, but states he has no teeth. Pt states no recent issues with n/v/c/d at this time. Note last BM was 06/01 and pt not currently on bowel regimen per chart review. Pt states no recent wt changes. Note recent 3# wt gain x1mon, per chart review. ABNORMAL NUTRITION-RELATED LAB VALUES LOW: Ca 8.3; alb 2.5 HIGH: Na 147; Cl 114; BUN 38; glu 131 Est. kcal needs: 6500-7487 kcal | 20-25 kcal/kg Est. Pro needs: 70-87 g Pro | 0.8-1.0 g Pro/kg PES STATEMENT: Inadequate oral intake (NI-2.1) related to loss of appetite as evidenced by pt interview | avg PO intake <25% x2meal INTERVENTION: Continue with current diet order of DYS2 [facility] Altered diet. Add Ensure Enlive (vary) to meals TID, for increased kcal intake. Provides 350 kcal and 13 g Pro per serving. Will continue to follow and reassess as pt needs, intake, and status change. MONITOR/EVALUATE: PO Intake; Plan of Care; Hydration Status; Weight Status; Lab Values Itz Patino, MS, RD, LD"
--- NOTE | 2019-06-03 14:36 | Physician Query Clarification ---
"Physician Query-General Query to Physician: The medical record reflects the following clinical scenario: History/Risk factors: Pneumonia, Clinical Findings: Hypotension, Tachycardia, fevers, Treatment: Aggressive IV hydration, Levophed gtt, IV ABX Question: What condition best reflects the above clinical scenario? Please document response in the Progress notes or Discharge Summary. 1. Sepsis present on admission, improved now 2. Bacteremia Gram neg. (As currently Documented) 3. Other , with explanation of the clinical findings 4. Clinically undetermined, no explanation for the clinical findings Please remember a lack of response to the above will prompt a phone page by CDI/coding staff In responding to this query, please exercise your independent professional judgment. The purpose of this communication is to more accurately reflect the complexity of your patients condition. The fact that a question is asked does not imply that any particular answer is desired or expected. Thank you for timely response to this clarification. Mari Sosa, MSN, RN RN Specialist-Clinical Doc Improvement CD -Health Info Mgmt Operations [address] [facility] t: [phone] | f: [phone] If you are unable to reach me at my extension, I may be working from home. Please contact me at [phone] PHYSICIAN RESPONSE: Based on the clinical findings in the record, please respond to the query above on this document as an addendum. Physician Response: Physician Response 1 sepsis, currently better- H/P also had septic shock - he is no longer in septic shock with ivf, pressors discontinued. So i do not have it on my current diagnosis list. If you have questions please contact: White Kid Buffer: Ext: Thank you for your time and cooperation. Clinical Upholstery Mechanic/White Kid Buffer This is a permanent part of the medical record MARI SOSA Jun 03, 2019 14:36 HARRY TRUJILLO MD Jun 04, 2019 14:14"
--- NOTE | 2019-06-03 15:30 | NUR ---
CM/SS follow up. CM/SS spoke with the patients daughter Mary via phone to discuss discharge plans. Mary stated that she did not want the patient to return to [facility] due to not being happy with his care. She verbalized that she wanted to bring him home. She believes that she will be able to provide him with adequate care. CM/SS informed the daughter that the patient is doing poorly with physical therapy due to weakness. CM/SS also discussed safety. Mary stated that she will get him a commode, new bed (not hospital), and any new equipment he needs for home. She also stated her sister is a Nurse who will be coming to the house to help out and two 19-year-old grandchildren for lifting purposes. CM/SS spoke with her about needing to get the patient stronger and more independent before he discharged home. CM/SS discussed with the daughter that inpatient rehab may be an option. CM/SS reached out to May, and Dr. Soto who agreed with place. Inpatient rehab approved the patient for tomorrow morning. CM/SS attempted to contact the patients daughterMary for an update. A voice mail was left. Will continue to follow.
[2019-06-03 16:12] VITALS: BP 145/70
[2019-06-03 19:54] VITALS: BP 153/66
--- NOTE | 2019-06-03 23:46 | Progress Note ---
Subjective Subjective Date Seen by Provider: Jun 03, 2019 Time Seen by Provider: 12:55 83 yo M - No overnight events. -Pt reports he was agitated this AM because he wanted to get up out of bed but was unable to physically and he was told by staff that he could not get up on his own. -Feels his breathing is improving. Review of Systems General: No Chills, No Night Sweats HEENT: No Head Aches, No Visual Changes Pulmonary: No Dyspnea; Cough Cardiovascular: No: Chest Pain, Palpitations Gastrointestinal: No: Nausea, Vomiting Genitourinary: No Dysuria, No Frequency Musculoskeletal: No: neck pain Neurological: Weakness All Other Systems Reviewed All Other Systems Reviewed: Yes Objective Exam Vital Signs Vital Signs Date Time Temp Pulse Resp B/P (MAP) Pulse Ox O2 Delivery O2 Flow Rate FiO2 06/03/19 21:14 79 29 95 30.00 06/03/19 19:54 36.5 74 22 153/66 (95) 98 High Flow N/C 7.00 06/03/19 19:39 High Flow N/C 7.00 06/03/19 19:25 78 06/03/19 18:15 96 High Flow N/C 7.00 06/03/19 18:12 96 High Flow N/C 7.00 06/03/19 16:12 36.8 75 21 145/70 (95) 96 High Flow N/C 7.00 06/03/19 14:51 94 High Flow N/C 7.00 06/03/19 13:37 77 06/03/19 12:00 36.0 72 22 175/82 (113) 98 NIV Bilevel 06/03/19 10:59 98 NIV Bilevel 30 06/03/19 08:00 High Flow N/C 7.00 06/03/19 08:00 37.1 73 18 164/84 (110) 99 NIV Bilevel 06/03/19 07:44 79 28 98 40.00 06/03/19 04:00 36.9 71 15 178/77 (110) 98 NIV Bilevel 06/03/19 01:58 87 23 95 40.00 06/03/19 01:00 69 06/02/19 23:55 36.3 65 18 171/65 (100) 97 NIV Bilevel I & O 06/03/19 07:00 Intake Total 1095 ml Output Total 1275 ml Balance -180 ml General Appearance: No Apparent Distress, WD/WN, Other (Intubated and sedated) Eyes: Bilateral Eye PERRL, Bilateral Eye Other (Bilateral mattering mild) HEENT: Other (Endotracheal tube in place, OG tube in place) Neck: Normal Inspection, Supple Respiratory: Chest Non Tender, Crackles, Rhonci, Other (accessory muscle use- ) Cardiovascular: Regular Rate, Rhythm, No Edema Gastrointestinal: Normal Bowel Sounds, Soft Rectal: Deferred Extremity: Normal Inspection, Non Tender, No Pedal Edema Neurologic/Psychiatric: Alert, Oriented x3, Other (sedated) Skin: Normal Color, Warm/Dry Results Lab Laboratory Tests 06/03/19 08:58: White Blood Count 12.0H, Red Blood Count 3.19L, Hemoglobin 9.0L, Hematocrit 29L, Mean Corpuscular Volume 92, Mean Corpuscular Hemoglobin 28, Mean Corpuscular Hemoglobin Concent 31L, Red Cell Distribution Width 15.3H, Platelet Count 305, Mean Platelet Volume 9.6, Neutrophils (%) (Auto) 83H, Lymphocytes (%) (Auto) 9L, Monocytes (%) (Auto) 8, Eosinophils (%) (Auto) 0, Basophils (%) (Auto) 0, Neutrophils # (Auto) 10.0H, Lymphocytes # (Auto) 1.0, Monocytes # (Auto) 1.0, Eosinophils # (Auto) 0.0, Basophils # (Auto) 0.0, Neutrophils % (Manual) 76, Lymphocytes % (Manual) 14, Monocytes % (Manual) 4, Eosinophils % (Manual) 0, Basophils % (Manual) 0, Band Neutrophils 6, Anisocytosis SLIGHT, Sodium Level 147H, Potassium Level 3.7, Chloride Level 114H, Carbon Dioxide Level 24, Anion Gap 9, Blood Urea Nitrogen 38H, Creatinine 0.90, Estimat Glomerular Filtration Rate > 60, BUN/Creatinine Ratio 42, Glucose Level 131H, Calcium Level 8.3L, Phosphorus Level 2.8, Magnesium Level 2.2, Albumin 2.5L Microbiology 05/30/19 Gram Stain - Final, Complete 05/30/19 Sputum Culture - Final, Complete Usual upper respiratory trell Haemophilus influenza 05/30/19 Urine Culture - Final, Complete NO GROWTH 05/30/19 Blood Culture - Final, Complete Haemophilus influenza Assessment/Plan Assessment/Plan Assessment and Plan 05/31/19 weaning trial started but rr increased and oxygen saturation declined he was placed back on AC and sedated OG tube is bringing up bloody secretions -lovenox held. Pt is on PPI BID IV monitoring Hgb. Continue Vanc/zosyn/azithromycin- 1 blood culture is going gram neg- sent off to [facility] blood pressure is better- pressors are off. -steroids started for his COPD and respiratory failure- but steroids will not be good for his GI bleed. Dr. Ferreira consulted. 06/01/19- extubated. No more blood per OG tube -blood cultures growing gram neg hemophilus species beta lactamase + he is on zosyn which appears to be working- for the pneumonia and bacteremia. If we need better coverage meropenem would be what we switch to. -bedside swallow test 06/02/19- hypernatremia starting IVF 02/13 NS changed ceftriaxone as it will treat both his H.infl pneumonia and bacteremia -need to get him back to nasal cannula (baseline is 2-3 L oxygen NC) and then d/c to home. 06/03/19- Na a little improved with IVF. He is drinking water without issue and eating. -Inpatient rehab to evaluate him other possible discharge plans include back to health and rehab; daughter also voiced she planned on taking him home. -need to get him closer to his baseline oxygen requirement of 2-3L. -will d/c his IVF since he taking po. -pneumonia, bacteremia (H. influ) covered with rocephin. Dispo: improved. Problems: (1) Pneumonia Qualifiers: (2) Acute on chronic respiratory failure with hypoxia and hypercapnia (3) Acute kidney injury Assessment & Plan: improved (4) COPD with acute lower respiratory infection (5) GI bleed Assessment & Plan: trending hgb- does not appear to be a brisk bleed- could be gastritis along with irritation from placement of OG. (6) Bacteremia due to Gram-negative bacteria (7) Acute hypernatremia Clinical Quality Measures DVT/VTE Risk/Contraindication: Risk Factor Score Per Nursin RFS Level Per Nursing on Admit: 4+=Very High HARRY TRUJILLO MD Jun 03, 2019 23:46
[2019-06-04 00:05] VITALS: BP 181/62
[2019-06-04] MEDS: RT-ALBUTEROL/IPRATROPIUM 3 ML (DUONEB) VIAL INH SCH ×6 (01:52→22:06)
[2019-06-04 04:46] VITALS: BP 181/74
[2019-06-04 05:41] LABS: BASOPHILS % (AUTO) 0 % (0-10); EOSINOPHILS % (AUTO) 0 % (0-10); HEMATOCRIT 30 % (40-54); HEMOGLOBIN 9.3 G/DL (13.3-17.7); LYMPHOCYTES # (AUTO) 0.9 X 10^3 (1.0-4.0); LYMPHOCYTES % (AUTO) 8 % (12-44); MEAN CORPUSCULAR HEMOGLOBIN 29 PG (25-34); MEAN CORPUSCULAR HGB CONC 31 G/DL (32-36); MEAN CORPUSCULAR VOLUME 93 FL (80-99); MEAN PLATELET VOLUME 10.3 FL (7.4-10.4); MONOCYTES # (AUTO) 0.7 X 10^3 (0.0-1.0); MONOCYTES % (AUTO) 6 % (0-12); NEUTROPHILS # (AUTO) 9.2 X 10^3 (1.8-7.8); NEUTROPHILS % (AUTO) 85 % (42-75); PLATELET COUNT 268 10^3/uL (130-400); RED CELL DISTRIBUTION WIDTH 15.2 % (10.0-14.5); WHITE BLOOD COUNT 10.8 10^3/uL (4.3-11.0)
--- NOTE | 2019-06-04 05:44 | Pulmonary Progress Note ---
Subjective Time Seen by a Provider: 05:40 Subjective/Events-last exam No complications noted. Sepsis Event Evaluation Height, Weight, BMI Height: '" Weight: lbs. oz. kg; 27.00 BMI Method: Exam Exam Vital Signs Date Time Temp Pulse Resp B/P (MAP) Pulse Ox O2 Delivery O2 Flow Rate FiO2 06/04/19 04:46 36.6 67 26 181/74 (109) 98 NIV Bilevel 30.00 06/04/19 01:52 63 28 93 30.00 06/04/19 00:46 69 06/04/19 00:05 36.7 61 25 181/62 (101) 98 NIV Bilevel 30.00 06/03/19 21:14 79 29 95 30.00 06/03/19 19:54 36.5 74 22 153/66 (95) 98 High Flow N/C 7.00 06/03/19 19:39 High Flow N/C 7.00 06/03/19 19:25 78 06/03/19 18:15 96 High Flow N/C 7.00 06/03/19 18:12 96 High Flow N/C 7.00 06/03/19 16:12 36.8 75 21 145/70 (95) 96 High Flow N/C 7.00 06/03/19 14:51 94 High Flow N/C 7.00 06/03/19 13:37 77 06/03/19 12:00 36.0 72 22 175/82 (113) 98 NIV Bilevel 06/03/19 10:59 98 NIV Bilevel 30 06/03/19 08:00 High Flow N/C 7.00 06/03/19 08:00 37.1 73 18 164/84 (110) 99 NIV Bilevel 06/03/19 07:44 79 28 98 40.00 I & O 06/04/19 07:00 Intake Total 2640 ml Output Total 1050 ml Balance 1590 ml Height & Weight Height: '" Weight: lbs. oz. kg; 27.00 BMI Method: General Appearance: No Apparent Distress, WD/WN, Other (Intubated and sedated) HEENT: Other (Endotracheal tube in place, OG tube in place) Neck: Normal Inspection, Supple Respiratory: Chest Non Tender, Crackles, Rhonci, Other (accessory muscle use- ) Cardiovascular: Regular Rate, Rhythm, No Edema Capillary Refill: Less Than 3 Seconds Gastrointestinal: normal bowel sounds, non tender, soft, other (Ventral hernia) Extremity: Normal Inspection, Non Tender, No Pedal Edema Neurologic/Psychiatric: Alert, Oriented x3, Other (sedated) Skin: Normal Color, Warm/Dry Results Lab Laboratory Tests 06/03/19 08:58 Assessment/Plan Assessment/Plan Acute respiratory failure with pneumonia with Severe sepsis - question of aspiration -currenlty on rocephin -extubated 05/31 -Check BNP -Start PT/OT -Currently on BiPAP - trial back to [place] -Check BNP -duoneb and solumedrol -Burnett cultures pending -influenza is negative MRSA is negative - D.c Vanco -COVID is neg Anemia -Monitor KAILEY FROST DO Jun 04, 2019 05:44
[2019-06-04] MEDS ORDERED: FUROSEMIDE 40 MG/4 ML INJ (LASIX) IVP ONE (05:45)
[2019-06-04] MEDS ORDERED: KCL 20 MEQ TAB (K-DUR) PO ONE (05:45)
[2019-06-04 05:54] LABS: CHLORIDE 113 MMOL/L (98-107); SODIUM 146 MMOL/L (135-145)
[2019-06-04 05:55] LABS: CALCIUM 8.5 MG/DL (8.5-10.1)
[2019-06-04 05:56] LABS: GLUCOSE 108 MG/DL (70-105)
[2019-06-04 05:57] LABS: CARBON DIOXIDE 25 MMOL/L (21-32)
[2019-06-04 06:00] LABS: CREATININE SERUM 0.77 MG/DL (0.60-1.30); GFR ESTIMATED > 60
[2019-06-04 06:01] LABS: BUN/CREATININE RATIO 43
[2019-06-04] MEDS: RT-BUDESONIDE NEBS 0.5 MG/2ML (PULMICORT) AMP INH SCH ×2 (06:17→18:27)
[2019-06-04] MEDS: ENOXAPARIN 40 MG/0.4 ML (LOVENOX) SYR SC SCH (06:31)
[2019-06-04 07:22] VITALS: BP 161/73
[2019-06-04] MEDS: PANTOPRAZOLE 40 MG (PROTONIX) VIAL IV SCH ×2 (08:03→19:55)
[2019-06-04] MEDS: methylPREDNISolone 40 MG/ML (Solu-MEDROL) VIAL IV SCH ×2 (08:03→19:56)
[2019-06-04] MEDS: MICONAZOLE 2% POWDER (DESENEX AF) 90 GM TOP SCH ×2 (08:04→20:00)
--- NOTE | 2019-06-04 09:22 | Discharge Summary ---
Discharge Summary Hospital Course Problems/Dx: (1) Pneumonia Status: Acute Qualifiers: (2) Acute on chronic respiratory failure with hypoxia and hypercapnia Status: Acute (3) Acute kidney injury Status: Acute (4) COPD with acute lower respiratory infection Status: Acute (5) GI bleed (6) Bacteremia due to Gram-negative bacteria (7) Acute hypernatremia Hospital Course Date of Admission: May 30, 2019 at 01:30 Admission Diagnosis : Family Physician/Provider: Bobby Celestin DO Date of Discharge: 06/04/19 Discharge Diagnosis: [ ] Hospital Course: 83 yo M admitted for acute on chronic hypoxic respiratory failure due to Haemophilus Influenza. Blood cultures were also positive for H. Influ. He went from being intubated to BiPAP, to HFNC which he still is using BiPAP at night. On discharge to [facility]pt Rehab he was on 5L NC which his baseline is 2-3L oxygen via NC. He will be on rocephin 1gm daily until 06/07/19 and his iv methylprednisolone is to be changed to 10mg dexamethasone daily x 3 days. Respiratory status will need to be monitored. Hypernatremia improved with IVF (1/2 NS) they were stopped yesterday and he is drinking water. Monitor Sodium on labs. Labs and Pending Lab Test: Laboratory Tests 06/04/19 05:20: White Blood Count 10.8, Red Blood Count 3.26L, Hemoglobin 9.3L, Hematocrit 30L, Mean Corpuscular Volume 93, Mean Corpuscular Hemoglobin 29, Mean Corpuscular Hem oglobin Concent 31L, Red Cell Distribution Width 15.2H, Platelet Count 268, Mean Platelet Volume 10.3, Neutrophils (%) (Auto) 85H, Lymphocytes (%) (Auto) 8L, Monocytes (%) (Auto) 6, Eosinophils (%) (Auto) 0, Basophils (%) (Auto) 0, Neutrophils # (Auto) 9.2H, Lymphocytes # (Auto) 0.9L, Monocytes # (Auto) 0.7, Eosinophils # (Auto) 0.0, Basophils # (Auto) 0.0, Sodium Level 146H, Potassium Level 4.0, Chloride Level 113H, Carbon Dioxide Level 25, Anion Gap 8, Blood Urea Nitrogen 33H, Creatinine 0.77, Estimat Glomerular Filtration Rate > 60, BUN/Creatinine Ratio 43, Glucose Level 108H, Calcium Level 8.5, B-Type Natriuretic Peptide 1232.2H Microbiology 05/30/19 Gram Stain - Final, Complete 05/30/19 Sputum Culture - Final, Complete Usual upper respiratory trell Haemophilus influenza 05/30/19 Urine Culture - Final, Complete NO GROWTH 05/30/19 Blood Culture - Final, Complete Haemophilus influenza Home Meds Active Reported Tramadol HCl 50 Mg Tablet 50 Mg PO TID Metoprolol Succinate 25 Mg Tab.er.24h 25 Mg PO DAILY HOLD FOR SBP LESS THAN 110-60 OR AP LESS THEN 60 BPM Terazosin HCl 2 Mg Capsule 2 Mg PO HS Potassium Chloride 20 Meq Tablet.er 20 Meq PO DAILY Protonix (Pantoprazole Sodium) 40 Mg Tablet.dr 40 Mg PO DAILY Lisinopril 10 Mg Tablet 10 Mg PO DAILY Iprat-Albut 0.5-3(2.5) mg/3 ml (Ipratropium/Albuterol Sulfate) 3 Ml Ampul.neb 3 Ml IH Q12H PRN Mucinex (Guaifenesin) 1,200 Mg Tab.er.12h 1,200 Mg PO Q12H Lasix (Furosemide) 40 Mg Tablet 60 Mg PO DAILY TAKES 1 & OF A 40MG TAB TO EQUAL 60MG DAILY Colace (Docusate Sodium) 100 Mg Capsule 100 Mg PO DAILY PRN Vitamin D3 (Cholecalciferol (Vitamin D3)) 25 Mcg Capsule 25 Mcg PO DAILY Bisacodyl 10 Mg Supp.rect 10 Mg RC DAILY PRN Azithromycin 250 Mg Tablet 250 Mg PO DAILY GIVE UNTIL 05-31-2019 Aspirin EC (Aspirin) 81 Mg Tablet.dr 81 Mg PO DAILY Albuterol Sulfate 2.5 Mg/0.5 Ml Vial.neb 2.5 Mg INH Q4H Albuterol Sulfate 2.5 Mg/0.5 Ml Vial.neb 2.5 Mg INH Q6H Advair 250-50 Diskus (Fluticasone/Salmeterol) 1 Each Blst.w.dev 1 Each IH BID RINSE MOUTH AFTER EACH USE Tylenol Extra Strength (Acetaminophen) 500 Mg Tablet 500-1,000 Mg PO Q6H PRN Discharge Planning: <30 minutes discharge planning Discharge Instructions Discharge Diet: Other Diet (Dysphagia II ) Activity as Tolerated: Yes Discharge Physical Examination Vital Signs Vital Signs Date Time Temp Pulse Resp B/P (MAP) Pulse Ox O2 Delivery O2 Flow Rate FiO2 06/04/19 07:22 36.6 81 24 161/73 (102) 96 Nasal Cannula 7.00 06/03/19 10:59 30 General Appearance: Mild Distress (respiratory) HEENT: PERRL/EOMI Respiratory: Chest Non Tender, Decreased Breath Sounds (bases) Allergies: Coded Allergies: No Known Drug Allergies (Unverified , 04/25/19) Discharge Summary Date of Admission May 30, 2019 at 01:30 Date of Discharge Admission Diagnosis Septic shock Discharge Diagnosis (1) Pneumonia Status: Acute Qualifiers: (2) Acute on chronic respiratory failure with hypoxia and hypercapnia Status: Acute (3) Acute kidney injury Status: Acute Assessment & Plan: improved (4) COPD with acute lower respiratory infection Status: Acute (5) GI bleed Assessment & Plan: trending hgb- does not appear to be a brisk bleed- could be gastritis along with irritation from placement of OG. (6) Bacteremia due to Gram-negative bacteria (7) Acute hypernatremia Clinical Quality Measures DVT/VTE Risk/Contraindication: Risk Factor Score Per Nursin RFS Level Per Nursing on Admit: 4+=Very High HARRY TRUJILLO MD Jun 04, 2019 09:20
--- NOTE | 2019-06-04 10:24 | NUR ---
CM/SS finalized plan Plan: The patient is going to Inpatient Rehab. CM/SS contacted Mary to inform her of the plan. She is agreeable to the plan and stated she does not have any other needs at this time. She verbalized that they have already moved everything out of [facility].
[2019-06-04] MEDS ORDERED: FUROSEMIDE 40 MG/4 ML INJ (LASIX) IVP NR (11:00)
--- NOTE | 2019-06-04 11:00 | NUR ---
Patient to room 222 at this time. This RN saw patient and immediately saw that patient had labored abdominal breathing. Patient was o2 sat was 96% on 5L NC however, RT here in patient's room as well at this time and states "His breathing has been like this all morning." and that she was going to put patient back on BIPAP. 1102-This RN gets patient liaison, May in room and May calls Dr. Alvarenga. May notifies Dr. Alvarenga of patient's situation. May states Dr. Alvarenga instructs this RN to Call Dr. Ferreira -1105- This RN calls Dr. Ferreira at this time to notify him of patient's status. Dr. Ferreira orders: 40 iv lasix x1 now, 20mg kcl PO now, cxr. Dr. Hi states to order repeat labs and cxr for tomorrow AM. 1110-May states that Dr. Alvarenga wants patient transferred back up to med/Surg floor. 1128-This RN called Dr. Ferreira to let him know that this RN could not get patient to take the 20 mg kcl PO. States "That is ok, go ahead and also get an ABG 30mins after patient placed on BIPAP and repeat labs at 1600. Will carry out orders and get patient transferred back up to room 416.
--- NOTE | 2019-06-04 11:00 | NUR ---
PT transferred to ARU per MD. staff let this RN know PT continues to abdominal breath, is SOA and unable to do therapy at this time. Dr Reynolds notified by ARU staff and by this RN. ARU nurse to give lasix and potassium and PT is to receive chest Xray. PT will return to 4th floor pending results
[2019-06-04] MEDS: KCL 20 MEQ TAB (K-DUR) PO NR ×2 (11:15→11:30)
--- NOTE | 2019-06-04 11:17 | Progress Note ---
Subjective Subjective Date Seen by Provider: Jun 04, 2019 Time Seen by Provider: 09:00 83 yo M -initially accepted to inpt rehab but on re-evaluation he is not stable enough to be accepted. -patient this AM reported he would like to get out of the hospital and that he is not in a good mood. -he also said a couple things I could not understand. Review of Systems General: No Chills, No Night Sweats HEENT: No Head Aches, No Visual Changes Pulmonary: No Dyspnea; Cough Cardiovascular: No: Chest Pain, Palpitations Gastrointestinal: No: Nausea, Vomiting Genitourinary: No Dysuria, No Frequency Musculoskeletal: No: neck pain Neurological: Weakness All Other Systems Reviewed All Other Systems Reviewed: Yes Objective Exam Vital Signs Vital Signs Date Time Temp Pulse Resp B/P (MAP) Pulse Ox O2 Delivery O2 Flow Rate FiO2 06/04/19 12:27 72 06/04/19 12:23 36.4 92 24 158/71 (100) 96 NIV Bilevel 06/04/19 10:49 68 32 93 30.00 06/04/19 08:00 High Flow N/C 5.00 06/04/19 07:22 36.6 81 24 161/73 (102) 96 Nasal Cannula 7.00 06/04/19 06:42 77 06/04/19 06:22 73 30 93 06/04/19 06:17 68 32 93 30.00 06/04/19 04:46 36.6 67 26 181/74 (109) 98 NIV Bilevel 30.00 06/04/19 01:52 63 28 93 30.00 06/04/19 00:46 69 06/04/19 00:05 36.7 61 25 181/62 (101) 98 NIV Bilevel 30.00 06/03/19 21:14 79 29 95 30.00 06/03/19 19:54 36.5 74 22 153/66 (95) 98 High Flow N/C 7.00 06/03/19 19:39 High Flow N/C 7.00 06/03/19 19:25 78 06/03/19 18:15 96 High Flow N/C 7.00 06/03/19 18:12 96 High Flow N/C 7.00 06/03/19 16:12 36.8 75 21 145/70 (95) 96 High Flow N/C 7.00 06/03/19 14:51 94 High Flow N/C 7.00 I & O 06/04/19 07:00 Intake Total 2740 ml Output Total 1750 ml Balance 990 ml General Appearance: Mild Distress (respiratory) Eyes: Bilateral Eye PERRL, Bilateral Eye Other (Bilateral mattering mild) HEENT: PERRL/EOMI Neck: Normal Inspection, Supple Respiratory: Chest Non Tender, Accessory Muscle Use, Decreased Breath Sounds (bases) Cardiovascular: Regular Rate, Rhythm, No Edema Gastrointestinal: Normal Bowel Sounds, Soft Rectal: Deferred Extremity: Normal Inspection, Non Tender, No Pedal Edema Neurologic/Psychiatric: Alert, Oriented x3, Other (sedated) Skin: Normal Color, Warm/Dry Results Lab Laboratory Tests 06/04/19 05:20: White Blood Count 10.8, Red Blood Count 3.26L, Hemoglobin 9.3L, Hematocrit 30L, Mean Corpuscular Volume 93, Mean Corpuscular Hemoglobin 29, Mean Corpuscular Hemoglobin Concent 31L, Red Cell Distribution Width 15.2H, Platelet Count 268, Mean Platelet Volume 10.3, Neutrophils (%) (Auto) 85H, Lymphocytes (%) (Auto) 8L , Monocytes (%) (Auto) 6, Eosinophils (%) (Auto) 0, Basophils (%) (Auto) 0, Neutrophils # (Auto) 9.2H, Lymphocytes # (Auto) 0.9L, Monocytes # (Auto) 0.7, Eosinophils # (Auto) 0.0, Basophils # (Auto) 0.0, Sodium Level 146H, Potassium Level 4.0, Chloride Level 113H, Carbon Dioxide Level 25, Anion Gap 8, Blood Urea Nitrogen 33H, Creatinine 0.77, Estimat Glomerular Filtration Rate > 60, BUN/Creatinine Ratio 43, Glucose Level 108H, Calcium Level 8.5, B-Type Natriuretic Peptide 1232.2H Microbiology 05/30/19 Gram Stain - Final, Complete 05/30/19 Sputum Culture - Final, Complete Usual upper respiratory trell Haemophilus influenza 05/30/19 Urine Culture - Final, Complete NO GROWTH 05/30/19 Blood Culture - Final, Complete Haemophilus influenza Assessment/Plan Assessment/Plan Assessment and Plan 05/31/19 weaning trial started but rr increased and oxygen saturation declined he was placed back on AC and sedated OG tube is bringing up bloody secretions -lovenox held. Pt is on PPI BID IV monitoring Hgb. Continue Vanc/zosyn/azithromycin- 1 blood culture is going gram neg- sent off to [facility] blood pressure is better- pressors are off. -steroids started for his COPD and respiratory failure- but steroids will not be good for his GI bleed. Dr. Ferreira consulted. 06/01/19- extubated. No more blood per OG tube -blood cultures growing gram neg hemophilus species beta lactamase + he is on zosyn which appears to be working- for the pneumonia and bacteremia. If we need better coverage meropenem would be what we switch to. -bedside swallow test 06/02/19- hypernatremia starting IVF 02/13 NS changed ceftriaxone as it will treat both his H.infl pneumonia and bacteremia -need to get him back to nasal cannula (baseline is 2-3 L oxygen NC) and then d/c to home. 06/03/19- Na a little improved with IVF. He is drinking water without issue and eating. -Inpatient rehab to evaluate him other possible discharge plans include back to health and rehab; daughter also voiced she planned on taking him home. -need to get him closer to his baseline oxygen requirement of 2-3L. -will d/c his IVF since he taking po. -pneumonia, bacteremia (H. influ) covered with rocephin. 06/04/19 BNP elevated. Diuresing. Still belly breathing and using accessory muscles. Respiratory status has improved though from admission he has went from intubated to biPAP to HFNC and this AM he was on 5L oxygen via NC. on methyprednisolone 40mg BID Dispo: improved but guarded. Problems: (1) Pneumonia Qualifiers: (2) Acute on chronic respiratory failure with hypoxia and hypercapnia (3) Acute kidney injury Assessment & Plan: improved (4) COPD with acute lower respiratory infection (5) GI bleed Assessment & Plan: trending hgb- does not appear to be a brisk bleed- could be gastritis along with irritation from placement of OG. (6) Bacteremia due to Gram-negative bacteria (7) Acute hypernatremia Clinical Quality Measures DVT/VTE Risk/Contraindication: Risk Factor Score Per Nursin RFS Level Per Nursing on Admit: 4+=Very High HARRY TRUJILLO MD Jun 04, 2019 11:17
--- NOTE | 2019-06-04 11:18 | Occupational Ther Daily Note ---
OT Current Status-Daily Note Subjective Pt. does not report pain. Pt. attempts to verbalize, but is mostly unintelligible. Appearance Pt. in bed when therapy enters room. Pt. on 5 L 02 through nasal cannula. Mental Status/Objective Patient Orientation: Unable to Assess Attachments: Roberts Catheter, IV, Oxygen, Telemetry ADL-Treatment Therapy Code Descriptions/Definitions Functional [place] Measure: 0=Not Assessed/NA 4=Minimal Assistance 1=Total Assistance 5=Supervision or Setup 2=Maximal Assistance 6=Modified [place] 3=Moderate Assistance 7=Complete IndependenceSCALE: Activities may be completed with or without assistive devices. 4-Iqhmrpigre-ygobdgx completes the activity by him/herself with no assistance from a helper. 5-Set-up or Clean-up Assistance-helper sets up or cleans up; patient completes activity. [place] assists only prior to or following the activity. 4-Supervision or Touching Assistance-helper provides verbal cues and/or touching/steadying and/or contact guard assistance as patient completes activity. Assistance may be provided throughout the activity or intermittently. 3-Partial/Moderate Assistance-helper does LESS THAN HALF the effort. [place] lifts, holds or supports trunk or limbs, but provides less than half the effort. 2-Substantial/Maximal Assistance-helper does MORE THAN HALF the effort. [place] lifts or holds trunk or limbs and provides more than half the effort. 3-Itxhliflw-glomlw does ALL the effort. Patient does none of the effort to complete the activity. Or, the assistance of 2 or more helpers is required for the patient to complete the activity. If activity was not attempted, code reason: 7-Patient Refused. 9-Not Applicable-not attempted and the patient did not perform the activity before the current illness, exacerbation or injury. 10-Not Attempted due to Environmental Limitations-(lack of equipment, weather restraints, etc.). 88-Not Attempted due to Medical Conditions or Safety Concerns. Other Treatment OT/PT complete co-treatment with pt. due to need of two skilled therapists. OT/PT attempt to engage with pt., asking him questions. Pt. able to smile at times, and able to mouth words. Pt. is unable to verbalize pain or comfort level. OT completes UE PROM, and AAROM in all planes, with encouragement to do for self. Pt. able to squeeze OT's hands, and complete slight wrist extension exercises as well as bicep flexion exercises. Pt. becomes fatigued quickly. PT completes gentle PROM to bilateral LE. Pt. closes eyes as though he wants to rest. Nursing assesses pt. and RT completes assessment. Pt. put back onto bipap machine at this time. Encouraged pt. to assist with rolling/bed mobility. Pt. unable to do so and required dependent assist x 2 for rolling side to side, and positioning in bed. Staff came in to do chest x-ray. Education OT Patient Education: Correct positioning, Exercise program, Purpose of tx/functional activities, Reviewed precautions, Transfer techniques Teaching Recipient: Patient Teaching Methods: Demonstration, Discussion Response to Teaching: Unable to Return Demonstration, Reinforcement Needed OT Short Term Goals Short Term Goals Eatin Oral hygiene: 5 Upper body dressin OT Purification Director Goals Purification Director Goals Time Frame: Jun 09, 2019 Eating (QC): 6 Oral Hygiene (QC): 6 Toileting Hygiene (QC): 3 Shower/Bathe Self (QC): 3 Upper Body Dressing (QC): 5 Lower Body Dressing (QC): 5 On/Off Footwear (QC): 4 Additional Goals: 1-Demonstrate ADL Tasks, 2-Verbalize Understanding, 3- ImproveStrength/Joe 1=Demonstrate adherence to instructed precautions during ADL tasks. 2=Patient will verbalize/demonstrate understanding of assistive devices/modifications for ADL. 3=Patient will improve strength/tolerance for activity to enable patient to perform ADL's. OT Education/Plan Problem List/Assessment Assessment: Decreased Activ Tolerance, Decreased UE Strength, Dependent Transfers, Impaired Bed Mobility, Impaired Cognition, Impaired Coordination, Impaired Funct Balance, Impaired I ADL's, Impaired Self-Care Skills, Restricted Funct UE ROM Discharge Recommendations Plan/Recommendations: Continue POC Therapy Discharge Recommendati: 24 Hour Supervision Treatment Plan/Plan of Care Treatment,Training & Education: Yes Patient would benefit from OT for education, treatment and training to promote independence in ADL's, mobility, safety and/or upper extremity function for ADL's. Plan of Care: ADL Retraining, Functional Mobility, UE Funct Exercise/Act, W/C Management Training Treatment Duration: Jun 09, 2019 Frequency: 5 times per week Estimated Hrs Per Day: .25 hour per day Agreement: Yes Rehab Potential: Guarded Time/GCodes Start Time: 10:20 Stop Time: 11:10 Total Time Billed (hr/min): 50 Billed Treatment Time 1, FA x 15minutes, Ex x 10minutes- Co-treatment with PT. 50(25) Please see above note for designated roles. KARLOS DUMAS OT Jun 04, 2019 11:18
--- NOTE | 2019-06-04 11:19 | Diagnostic Imaging Report ---
INDICATION: Right lung crackles. Time of exam 11:10 AM Correlation is made with prior chest from 06/01/2019. Heart size is stable. There are patchy airspace infiltrates bilateral lung bases. This is similar on the right. This appears to be increased on the left since prior. Upper lung francis are clear. There is no pneumothorax. IMPRESSION: Bibasilar infiltrates, increasing on the left when compared to examination 3 days earlier. Dictated by: Dictated on workstation # [id number]
--- NOTE | 2019-06-04 11:19 | Physical Therapy Daily Note ---
PT Daily Note-Current Subjective The patient has difficulty communicating. Transfers SCALE: Activities may be completed with or without assistive devices. 6-Kouwgzmemc-ixfijgm completes the activity by him/herself with no assistance from a helper. 5-Set-up or Clean-up Assistance-helper sets up or cleans up; patient completes activity. [place] assists only prior to or following the activity. 4-Supervision or Touching Assistance-helper provides verbal cues and/or touching/steadying and/or contact guard assistance as patient completes activity. Assistance may be provided throughout the activity or intermittently. 3-Partial/Moderate Assistance-helper does LESS THAN HALF the effort. [place] lifts, holds or supports trunk or limbs, but provides less than half the effort. 2-Substantial/Maximal Assistance-helper does MORE THAN HALF the effort. [place] lifts or holds trunk or limbs and provides more than half the effort. 8-Dyleupwzq-tagzkl does ALL the effort. Patient does none of the effort to complete the activity. Or, the assistance of 2 or more helpers is required for the patient to complete the activity. If activity was not attempted, code reason: 7-Patient Refused. 9-Not Applicable-not attempted and the patient did not perform the activity before the current illness, exacerbation or injury. 10-Not Attempted due to Environmental Limitations-(lack of equipment, weather restraints, etc.). 88-Not Attempted due to Medical Conditions or Safety Concerns. Roll Left & Right (QC): 2 Co-treat with OT also included bed mobility training. Exercises Supine Ex: LE Protocol Supine Reps: 20 Assessment Current Status: Fair Progress The patient had significant SOB and abdominal breathing during treatment. PT Zig Zag [place] Machine Operator Goals Zig [place] Spring Machine Operator Goals PT Zig Zag Spring Machine Operator Goals Time Frame: June 21, 2019 Roll Left & Right (QC): 4 Sit to Lying (QC): 4 Lying-Sitting on Side/Bed(QC): 4 Sit to Stand (QC): 3 Chair/Shl-yo-Bwugm Xfer(QC): 3 Toilet Transfer (QC): 3 Does the Patient Walk: No and Walking Goal IS indicated Walk 10 feet (QC): 3 PT Plan Treatment/Plan Treatment Plan: Continue Plan of Care Treatment Plan: Bed Mobility, Education, Functional Activity Joe, Functional Strength, Gait, Safety, Therapeutic Exercise, Transfers Treatment Duration: June 21, 2019 Frequency: 6 times per week Estimated Hrs Per Day: .5 hour per day Patient and/or Family Agrees t: Yes Time/GCodes Time In: 1020 Time Out: 1110 Total Billed Treatment Time: 25 Total Billed Treatment 1, EX x 10' FA x 15' (co-treat with OT with total minutes of 50') MARK BENTLEY PT Jun 04, 2019 11:19
[2019-06-04 11:52] LABS: ABG BASE EXCESS 5.8 MMOL/L (-2.5-2.5); ABG OXYGEN SATURATION 90 % (94-100); ABG PCO2 44 MMHG (35-45); ABG PH 7.45 (7.37-7.43); ABG PO2 63 MMHG (79-93); ABG TCO2 31.1 MMOL/L (21.0-31.0)
[2019-06-04 11:53] LABS: ALLENS TEST YES-POS
[2019-06-04 11:54] LABS: INSPIRED O2 30%; PATIENT TEMP 37.2; VENTILATOR YES
[2019-06-04 12:23] VITALS: BP 158/71
[2019-06-04] MEDS: cefTRIAXone 1,000 MG/SWFI 10 ML IV PUSH IV SCH ×2 (13:05)
--- NOTE | 2019-06-04 15:43 | NUR ---
CM/SS updated the patients daughter, Mary about patient coming back to fourth floor.
[2019-06-04 16:00] VITALS: BP 172/73
[2019-06-04 16:30] LABS: BASOPHILS % (AUTO) 0 % (0-10); EOSINOPHILS % (AUTO) 0 % (0-10); HEMATOCRIT 32 % (40-54); LYMPHOCYTES % (AUTO) 8 % (12-44); MEAN CORPUSCULAR HEMOGLOBIN 29 PG (25-34); MEAN CORPUSCULAR HGB CONC 31 G/DL (32-36); MEAN CORPUSCULAR VOLUME 92 FL (80-99); MEAN PLATELET VOLUME 10.2 FL (7.4-10.4); MONOCYTES # (AUTO) 0.7 X 10^3 (0.0-1.0); MONOCYTES % (AUTO) 6 % (0-12); NEUTROPHILS # (AUTO) 10.6 X 10^3 (1.8-7.8); NEUTROPHILS % (AUTO) 86 % (42-75); PLATELET COUNT 284 10^3/uL (130-400); RED CELL DISTRIBUTION WIDTH 15.1 % (10.0-14.5); WHITE BLOOD COUNT 12.3 10^3/uL (4.3-11.0)
[2019-06-04 16:41] LABS: ALBUMIN 2.8 GM/DL (3.2-4.5); CHLORIDE 108 MMOL/L (98-107); POTASSIUM 3.7 MMOL/L (3.6-5.0); SODIUM 147 MMOL/L (135-145)
[2019-06-04 16:42] LABS: CALCIUM 8.7 MG/DL (8.5-10.1)
[2019-06-04 16:44] LABS: GLUCOSE 119 MG/DL (70-105); TOTAL PROTEIN 5.6 GM/DL (6.4-8.2)
[2019-06-04 16:45] LABS: CARBON DIOXIDE 28 MMOL/L (21-32)
[2019-06-04 16:46] LABS: BILIRUBIN,TOTAL 0.3 MG/DL (0.1-1.0)
[2019-06-04 16:47] LABS: ALKALINE PHOSPHATASE 42 U/L (40-136); CREATININE SERUM 0.83 MG/DL (0.60-1.30); GFR ESTIMATED > 60; PHOSPHORUS 2.5 MG/DL (2.3-4.7)
[2019-06-04 16:48] LABS: BUN/CREATININE RATIO 39
[2019-06-04 16:50] LABS: ALANINE AMINOTRANSFERASE 20 U/L (0-55); MAGNESIUM 2.3 MG/DL (1.6-2.4)
[2019-06-04 20:51] VITALS: BP 189/101
[2019-06-04] MEDS: LORazepam INJ 2 MG/ML (ATIVAN) VIAL IVP PRN (22:45)
[2019-06-05] MEDS: RT-ALBUTEROL/IPRATROPIUM 3 ML (DUONEB) VIAL INH SCH ×5 (02:38→22:08)
[2019-06-05 04:25] VITALS: BP 184/83
[2019-06-05 05:24] LABS: ALBUMIN 2.7 GM/DL (3.2-4.5); CHLORIDE 110 MMOL/L (98-107); POTASSIUM 3.8 MMOL/L (3.6-5.0); SODIUM 149 MMOL/L (135-145)
[2019-06-05 05:25] LABS: CALCIUM 8.5 MG/DL (8.5-10.1)
[2019-06-05 05:26] LABS: GLUCOSE 134 MG/DL (70-105); TOTAL PROTEIN 5.4 GM/DL (6.4-8.2)
[2019-06-05 05:28] LABS: BILIRUBIN,TOTAL 0.3 MG/DL (0.1-1.0); CARBON DIOXIDE 28 MMOL/L (21-32)
[2019-06-05] MEDS: ENOXAPARIN 40 MG/0.4 ML (LOVENOX) SYR SC SCH (05:28)
[2019-06-05 05:29] LABS: PHOSPHORUS 2.7 MG/DL (2.3-4.7)
[2019-06-05 05:30] LABS: ALKALINE PHOSPHATASE 43 U/L (40-136); GFR ESTIMATED > 60
[2019-06-05 05:31] LABS: BUN/CREATININE RATIO 39
[2019-06-05 05:33] LABS: ALANINE AMINOTRANSFERASE 22 U/L (0-55); MAGNESIUM 2.3 MG/DL (1.6-2.4)
--- NOTE | 2019-06-05 05:43 | Diagnostic Imaging Report ---
Indication: Shortness of breath Portable chest 4:15 AM Right IJ central line tip projects over the SVC. There is some right basilar interstitial infiltrate. There is some alveolar consolidation left lung base. There may be tiny left effusion. There is no pneumothorax. IMPRESSION: Right basilar interstitial infiltrate has improved since the previous day. There continues be some alveolar consolidation at the left lung base with probable small effusion that appears unchanged from the previous day. Dictated by: Dictated on workstation # [id number]
--- NOTE | 2019-06-05 06:14 | Pulmonary Progress Note ---
Subjective Time Seen by a Provider: 06:12 Subjective/Events-last exam No complications noted. Sepsis Event Evaluation Height, Weight, BMI Height: '" Weight: lbs. oz. kg; 27.00 BMI Method: Exam Exam Vital Signs Date Time Temp Pulse Resp B/P (MAP) Pulse Ox O2 Delivery O2 Flow Rate FiO2 06/05/19 04:25 36.6 90 34 184/83 (116) 93 NIV Bilevel 30.00 06/05/19 02:38 61 32 98 30.00 06/05/19 01:00 80 06/05/19 00:00 36.7 06/04/19 22:07 76 27 95 30.00 06/04/19 20:51 37.1 76 26 189/101 (130) 97 NIV Bilevel 06/04/19 20:30 95 NIV Bilevel 5.00 06/04/19 19:00 80 06/04/19 18:25 76 28 94 30.00 06/04/19 16:00 36.8 69 28 172/73 (106) 95 NIV Bilevel 06/04/19 14:40 65 25 93 30.00 06/04/19 12:27 72 06/04/19 12:23 36.4 92 24 158/71 (100) 96 NIV Bilevel 06/04/19 10:49 68 32 93 30.00 06/04/19 08:00 High Flow N/C 5.00 06/04/19 07:22 36.6 81 24 161/73 (102) 96 Nasal Cannula 7.00 06/04/19 06:42 77 06/04/19 06:22 73 30 93 06/04/19 06:17 68 32 93 30.00 I & O 06/05/19 07:00 Intake Total 500 ml Output Total 3550 ml Balance -3050 ml Height & Weight Height: '" Weight: lbs. oz. kg; 27.00 BMI Method: General Appearance: Mild Distress (respiratory) HEENT: PERRL/EOMI Neck: Normal Inspection, Supple Respiratory: Chest Non Tender, Accessory Muscle Use, Decreased Breath Sounds (bases) Cardiovascular: Regular Rate, Rhythm, No Edema Capillary Refill: Less Than 3 Seconds Gastrointestinal: normal bowel sounds, non tender, soft, other (Ventral hernia) Extremity: Normal Inspection, Non Tender, No Pedal Edema Neurologic/Psychiatric: Alert, Oriented x3, Other (sedated) Skin: Normal Color, Warm/Dry Results Lab Laboratory Tests 06/03/19 08:58 06/04/19 05:20 06/04/19 16:23 06/05/19 05:00 Assessment/Plan Assessment/Plan Acute respiratory failure with pneumonia with Severe sepsis - improving -currenlty on rocephin -Start PT/OT -duoneb and solumedrol -[place] cultures pending -influenza is negative MRSA is negative - D.c Vanco -COVID is neg Hypernatremia -Start D5 W Anemia -Monitor KAILEY FROST DO Jun 05, 2019 06:14
[2019-06-05] MEDS: RT-BUDESONIDE NEBS 0.5 MG/2ML (PULMICORT) AMP INH SCH ×2 (06:25→18:31)
[2019-06-05 08:00] VITALS: BP 176/88
[2019-06-05] MEDS: D5W 1000 ML IV SOLUTION 1,000 ML IV SCH ×3 (08:40→19:20)
[2019-06-05] MEDS: PANTOPRAZOLE 40 MG (PROTONIX) VIAL IV SCH ×2 (08:40→21:00)
[2019-06-05] MEDS: methylPREDNISolone 40 MG/ML (Solu-MEDROL) VIAL IV SCH ×2 (08:40→21:00)
[2019-06-05] MEDS: MICONAZOLE 2% POWDER (DESENEX AF) 90 GM TOP SCH ×2 (08:53→21:01)
[2019-06-05 12:00] VITALS: BP 161/74
--- NOTE | 2019-06-05 12:23 | Physical Therapy Daily Note ---
PT Daily Note-Current Subjective Pt laying Supine in bed on Bipap upon arrival. Pt. able to open eyes and attempts to speak through mask. Nods to therapists when it is explained about participating in therapy. Pt agrees to PT/OT co-treat. Mental Status Patient Orientation: Person, [place] Attachments: Oxygen, Roberts Catheter, Other-See Comments (Telemetry), IV Transfers SCALE: Activities may be completed with or without assistive devices. 5-Dfsjmskukp-tcksfsn completes the activity by him/herself with no assistance from a helper. 5-Set-up or Clean-up Assistance-helper sets up or cleans up; patient completes activity. [place] assists only prior to or following the activity. 4-Supervision or Touching Assistance-helper provides verbal cues and/or touching/steadying and/or contact guard assistance as patient completes activity. Assistance may be provided throughout the activity or intermittently. 3-Partial/Moderate Assistance-helper does LESS THAN HALF the effort. [place] lifts, holds or supports trunk or limbs, but provides less than half the effort. 2-Substantial/Maximal Assistance-helper does MORE THAN HALF the effort. [place] lifts or holds trunk or limbs and provides more than half the effort. 5-Hvaeczmob-vivxjg does ALL the effort. Patient does none of the effort to complete the activity. Or, the assistance of 2 or more helpers is required for the patient to complete the activity. If activity was not attempted, code reason: 7-Patient Refused. 9-Not Applicable-not attempted and the patient did not perform the activity before the current illness, exacerbation or injury. 10-Not Attempted due to Environmental Limitations-(lack of equipment, weather restraints, etc.). 88-Not Attempted due to Medical Conditions or Safety Concerns. Treatments Pt. seen by OT/PT due to need of skilled assistance x 2. Pt. transferred supine-sit with max x 2. OT applied sheet around pt's trunk area, and sat in front, providing support with sheet to bring trunk forward, while PT provided support from behind pt. to work on upright stability and sitting balance. Pt. able to sit approximately 20 minutes on side of bed with max support. Pt. encouraged to complete bilateral UE exercises to tolerance level. Pt. able to open/close bilateral hands, and attempted to raise each arm with 15 degrees shoulder flexion. Pt. required dependent assist x 2 for sit-supine, and bed mobility. Pt. points to banana on bedside table. Nursing okay with therapy attempted to feed pt. Bipap is removed momentarily and pt's face is washed. Pt. is given very small piece of banana. PT facilitates head position while OT attempts to have pt. feed self. Pt. unable to hold banana. OT places piece in pt's mouth. No dentures noted and pt. chews banana multiple times without swallowing. Nurse aide brings in water cup with straw. Pt. able to drink with no issues noted. Swallows banana. HOB is in raised position. Pt. declines any further banana. Pt. is positioned for comfort, including bilateral UE elevated due to edema. Assessment Current Status: Fair Progress Pt tolerated sitting longer than previous Rx but still limited by weakness and SOA. RT arrives at end of Rx and changes pt to 5L O2 instead of Bipap to test pt's tolerance. PT Registration Officer Goals Registration Officer Goals PT Detention Goals Time Frame: June 21, 2019 Roll Left & Right (QC): 4 Sit to Lying (QC): 4 Lying-Sitting on Side/Bed(QC): 4 Sit to Stand (QC): 3 Chair/Txi-zg-Pjzii Xfer(QC): 3 Toilet Transfer (QC): 3 Does the Patient Walk: No and Walking Goal IS indicated Walk 10 feet (QC): 3 PT Plan Problem List Problem List: Activity Tolerance, Functional Strength, Safety, Balance, Transfer, Bed Mobility Treatment/Plan Treatment Plan: Continue Plan of Care Treatment Plan: Bed Mobility, Education, Functional Activity Joe, Functional Strength, Gait, Safety, Therapeutic Exercise, Transfers Treatment Duration: June 21, 2019 Frequency: 6 times per week Estimated Hrs Per Day: .5 hour per day Patient and/or Family Agrees t: Yes Safety Risks/Education Patient Education: Transfer Techniques, Correct Positioning, Safety Issues Teaching Recipient: Patient Teaching Methods: Discussion Response to Teaching: Reinforcement Needed Time/GCodes Time In: 1110 Time Out: 1140 Total Billed Treatment Time: 30 Total Billed Treatment 1, RENÉ (15m) Co-treat with OT for 30m NESHA DAVIDSON MODEL DRESSER Jun 05, 2019 12:22
[2019-06-05] MEDS: cefTRIAXone 1,000 MG/SWFI 10 ML IV PUSH IV SCH ×2 (12:55)
--- NOTE | 2019-06-05 13:15 | Occupational Ther Daily Note ---
OT Current Status-Daily Note Subjective No pain reported. Appearance Pt. in bed on bypap machine. Pt. able to open eyes and attempts to speak through mask. Nods to therapists when it is explained about participating in therapy. Mental Status/Objective Patient Orientation: Unable to Assess Attachments: Roberts Catheter, IV, Oxygen, Telemetry ADL-Treatment Therapy Code Descriptions/Definitions Functional [place] Measure: 0=Not Assessed/NA 4=Minimal Assistance 1=Total Assistance 5=Supervision or Setup 2=Maximal Assistance 6=Modified [place] 3=Moderate Assistance 7=Complete IndependenceSCALE: Activities may be completed with or without assistive devices. 5-Vvrlwjgfaa-dtpdyjd completes the activity by him/herself with no assistance from a helper. 5-Set-up or Clean-up Assistance-helper sets up or cleans up; patient completes activity. [place] assists only prior to or following the activity. 4-Supervision or Touching Assistance-helper provides verbal cues and/or touching/steadying and/or contact guard assistance as patient completes activity. Assistance may be provided throughout the activity or intermittently. 3-Partial/Moderate Assistance-helper does LESS THAN HALF the effort. [place] lifts, holds or supports trunk or limbs, but provides less than half the effort. 2-Substantial/Maximal Assistance-helper does MORE THAN HALF the effort. [place] lifts or holds trunk or limbs and provides more than half the effort. 4-Vdgsngafk-uqmfhk does ALL the effort. Patient does none of the effort to complete the activity. Or, the assistance of 2 or more helpers is required for the patient to complete the activity. If activity was not attempted, code reason: 7-Patient Refused. 9-Not Applicable-not attempted and the patient did not perform the activity before the current illness, exacerbation or injury. 10-Not Attempted due to Environmental Limitations-(lack of equipment, weather restraints, etc.). 88-Not Attempted due to Medical Conditions or Safety Concerns. Eating (QC): 2 (Please see note.) Pt. seen by OT/PT due to need of skilled assistance x 2. Pt. transferred supine-sit with max x 2. OT applied sheet around pt's trunk area, and sat in fr ont, providing support with sheet to bring trunk forward, while PT provided support from behind pt. to work on upright stability and sitting balance. Pt. able to sit approximately 20 minutes on side of bed with max support. Pt. encouraged to complete bilateral UE exercises to tolerance level. Pt. able to open/close bilateral hands, and attempted to raise each arm with 15 degrees shoulder flexion. Pt. required dependent assist x 2 for sit-supine, and bed mobility. Pt. points to banana on bedside table. Nursing okay with therapy attempted to feed pt. Bipap is removed momentarily and pt's face is washed. Pt. is given very small piece of banana. PT facilitates head position while OT attempts to have pt. feed self. Pt. unable to hold banana. OT places piece in pt's mouth. No dentures noted and pt. chews banana multiple times without swallowing. Nurse aide brings in water cup with straw. Pt. able to drink with no issues noted. Swallows banana. HOB is in raised position. Pt. declines any further banana. Pt. is positioned for comfort, including bilateral UE elevated due to edema. Education OT Patient Education: Correct positioning, Modified ADL techniques, Progress toward Goal/Update tx plan, Purpose of tx/functional activities, Reviewed precautions, Rehab process, Transfer techniques Teaching Recipient: Patient Teaching Methods: Demonstration, Discussion Response to Teaching: Verbalize Understanding, Return Demonstration OT Short Term Goals Short Term Goals Eatin Oral hygiene: 5 Upper body dressin OT Assisted Goals [place] Goals Time Frame: Jun 09, 2019 Eating (QC): 6 Oral Hygiene (QC): 6 Toileting Hygiene (QC): 3 Shower/Bathe Self (QC): 3 Upper Body Dressing (QC): 5 Lower Body Dressing (QC): 5 On/Off Footwear (QC): 4 Additional Goals: 1-Demonstrate ADL Tasks, 2-Verbalize Understanding, 3- ImproveStrength/Joe 1=Demonstrate adherence to instructed precautions during ADL tasks. 2=Patient will verbalize/demonstrate understanding of assistive devices/modifications for ADL. 3=Patient will improve strength/tolerance for activity to enable patient to perform ADL's. OT Education/Plan Problem List/Assessment Assessment: Decreased Activ Tolerance, Decreased UE Strength, Dependent Transfers, Edema, Impaired Bed Mobility, Impaired Cognition, Impaired Coordination, Impaired Funct Balance, Impaired I ADL's, Impaired Self-Care Skills, Restricted Funct UE ROM Discharge Recommendations Plan/Recommendations: Continue POC Therapy Discharge Recommendati: 24 Hour Supervision Treatment Plan/Plan of Care Treatment,Training & Education: Yes Patient would benefit from OT for education, treatment and training to promote independence in ADL's, mobility, safety and/or upper extremity function for ADL's. Plan of Care: ADL Retraining, Functional Mobility, UE Funct Exercise/Act, W/C Management Training Treatment Duration: Jun 09, 2019 Frequency: 5 times per week Estimated Hrs Per Day: .25 hour per day Agreement: Yes Rehab Potential: Guarded Time/GCodes Start Time: 11:10 Stop Time: 11:40 Total Time Billed (hr/min): 30 Billed Treatment Time 1, FA x 15minutes (30 minute total co-treat with PT.) Please see above note for designated roles. KARLOS DUMAS OT Jun 05, 2019 13:15
--- NOTE | 2019-06-05 13:45 | NUR ---
CM/SS follow up. CM/SS has visited with the daughter Mary vargas today to discuss discharge for the patient. The patient's physician stated that the patient would benefit from going to [facility] or another LTACH due to patient needing longer term care for respiratory and physical therapy. CM/SS informed Mary of this. Mary had questions that this ss answered to her best abilities. Mary stated that she would get back to this ss with an answer. Mary contacted this SS stating that they were unwilling to transfer the patient to [facility] at this time due to negative comments she has heard. Mary had additional questions that needed answered from a Nurse. She also stated that she was not willing to have the patient go into another facility and was going to bring him home. CM/SS discussed with the patient home health and hospice. CM/SS asked RN, Serena to assist in answering Mary's questions. Serena answered all of Mary's questions. She stated she would call this SS back today with what they decided at this time. CM/SS visited with the patient. He appeared to have a difficult time talking and was difficult for this CM/SS to understand due to volume of speech. The patient could respond "Yes" or "No" to questions this SS asked. CM/SS will continue to follow and speak with patient and family for discharge planning.
[2019-06-05 16:23] VITALS: BP 176/86
[2019-06-05 20:27] VITALS: BP 178/87
--- NOTE | 2019-06-05 21:57 | Progress Note ---
Subjective Subjective Date Seen by Provider: Jun 05, 2019 Time Seen by Provider: 08:30 83 yo M on BiPAP sleeping. He is not working as hard to breath Diuresed well. Review of Systems ROS Unable to Obtain: asleep General: No Chills, No Night Sweats HEENT: No Head Aches, No Visual Changes Pulmonary: No Dyspnea; Cough Cardiovascular: No: Chest Pain, Palpitations Gastrointestinal: No: Nausea, Vomiting Genitourinary: No Dysuria, No Frequency Musculoskeletal: No: neck pain Neurological: Weakness All Other Systems Reviewed All Other Systems Reviewed: Yes Objective Exam Vital Signs Vital Signs Date Time Temp Pulse Resp B/P (MAP) Pulse Ox O2 Delivery O2 Flow Rate FiO2 06/05/19 20:27 36.4 74 24 178/87 (117) 96 High Flow N/C 4.00 06/05/19 19:00 80 06/05/19 18:31 93 High Flow N/C 5.00 06/05/19 16:23 36.6 74 22 176/86 (116) 96 High Flow N/C 4.00 06/05/19 13:41 94 High Flow N/C 5.00 06/05/19 12:17 80 06/05/19 12:00 37.0 80 20 161/74 (103) 92 High Flow N/C 5.00 06/05/19 08:00 NIV Bilevel 30.00 06/05/19 08:00 37.1 82 22 176/88 (117) 96 NIV Bilevel 30.00 06/05/19 07:00 82 06/05/19 06:31 80 31 93 30.00 06/05/19 04:25 36.6 90 34 184/83 (116) 93 NIV Bilevel 30.00 06/05/19 02:38 61 32 98 30.00 06/05/19 01:00 80 06/05/19 00:00 36.7 06/04/19 22:07 76 27 95 30.00 I & O 06/05/19 07:00 Intake Total 500 ml Output Total 3550 ml Balance -3050 ml General Appearance: Mild Distress (respiratory) Eyes: Bilateral Eye PERRL, Bilateral Eye Other (Bilateral mattering mild) HEENT: PERRL/EOMI Neck: Normal Inspection, Supple Respiratory: Chest Non Tender; No Accessory Muscle Use; Decreased Breath Sounds (bases) Cardiovascular: Regular Rate, Rhythm, No Edema Gastrointestinal: Normal Bowel Sounds, Soft Rectal: Deferred Extremity: Normal Inspection, Non Tender, No Pedal Edema Neurologic/Psychiatric: Other (asleep) Skin: Normal Color, Warm/Dry Results Lab Laboratory Tests 06/05/19 05:00: Sodium Level 149H, Potassium Level 3.8, Chloride Level 110H, Carbon Dioxide Level 28, Anion Gap 11, Blood Urea Nitrogen 31H, Creatinine 0.80, Estimat Glomerular Filtration Rate > 60, BUN/Creatinine Ratio 39, Glucose Level 134H, Calcium Level 8.5, Corrected Calcium 9.5, Phosphorus Level 2.7, Magnesium Level 2.3, Total Bilirubin 0.3, Aspartate Amino Transf (AST/SGOT) 19, Alanine Aminotransferase (ALT/SGPT) 22, Alkaline Phosphatase 43, Total Protein 5.4L, Albumin 2.7L Microbiology 05/30/19 Gram Stain - Final, Complete 05/30/19 Sputum Culture - Final, Complete Usual upper respiratory trell Haemophilus influenza 05/30/19 Urine Culture - Final, Complete NO GROWTH 05/30/19 Blood Culture - Final, Complete Haemophilus influenza Assessment/Plan Assessment/Plan Assessment and Plan 05/31/19 weaning trial started but rr increased and oxygen saturation declined he was placed back on AC and sedated OG tube is bringing up bloody secretions -lovenox held. Pt is on PPI BID IV monitoring Hgb. Continue Vanc/zosyn/azithromycin- 1 blood culture is going gram neg- sent off to [facility] blood pressure is better- pressors are off. -steroids started for his COPD and respiratory failure- but steroids will not be good for his GI bleed. Dr. Ferreira consulted. 06/01/19- extubated. No more blood per OG tube -blood cultures growing gram neg hemophilus species beta lactamase + he is on zosyn which appears to be working- for the pneumonia and bacteremia. If we need better coverage meropenem would be what we switch to. -bedside swallow test 06/02/19- hypernatremia starting IVF 1/ NS changed ceftriaxone as it will treat both his H.infl pneumonia and bacteremia -need to get him back to nasal cannula (baseline is 2-3 L oxygen NC) and then d/c to home. 06/03/19- Na a little improved with IVF. He is drinking water without issue and eating. -Inpatient rehab to evaluate him other possible discharge plans include back to health and rehab; daughter also voiced she planned on taking him home. -need to get him closer to his baseline oxygen requirement of 2-3L. -will d/c his IVF since he taking po. -pneumonia, bacteremia (H. influ) covered with rocephin. 06/04/19 BNP elevated. Diuresing. Still belly breathing and using accessory muscles. Respiratory status has improved though from admission he has went from intubated to biPAP to HFNC and this AM he was on 5L oxygen via NC. on methyprednisolone 40mg BID 06/05/19- working on discharge planning- could go to [place] but daugther of patient not agreeable. She would like to take him home; this would not be a good idea as patient is max assist. -continue steroids, respiratory care, antibiotics. on D5W for hypernatremia. Dispo: improved but guarded. Problems: (1) Pneumonia Qualifiers: (2) Acute on chronic respiratory failure with hypoxia and hypercapnia (3) Acute kidney injury Assessment & Plan: improved (4) COPD with acute lower respiratory infection (5) GI bleed Qualifiers: Assessment & Plan: trending hgb- does not appear to be a brisk bleed- could be gastritis along with irritation from placement of OG. (6) Bacteremia due to Gram-negative bacteria (7) Acute hypernatremia Clinical Quality Measures DVT/VTE Risk/Contraindication: Risk Factor Score Per Nursin RFS Level Per Nursing on Admit: 4+=Very High HARRY TRUJILLO MD Jun 05, 2019 21:57
[2019-06-05] MEDS: LORazepam INJ 2 MG/ML (ATIVAN) VIAL IVP PRN (23:12)
[2019-06-06 00:07] VITALS: BP 198/76
[2019-06-06] MEDS: meTOprolol TARTRATE 25 MG (LOPRESSOR) TABLET PO SCH ×2 (01:27→08:29)
[2019-06-06] MEDS: RT-ALBUTEROL/IPRATROPIUM 3 ML (DUONEB) VIAL INH SCH ×4 (02:33→14:50)
[2019-06-06 04:00] VITALS: BP 169/77
[2019-06-06 05:37] LABS: BASOPHILS % (AUTO) 0 % (0-10); EOSINOPHILS % (AUTO) 0 % (0-10); HEMATOCRIT 32 % (40-54); HEMOGLOBIN 9.8 G/DL (13.3-17.7); LYMPHOCYTES % (AUTO) 8 % (12-44); MEAN CORPUSCULAR HEMOGLOBIN 28 PG (25-34); MEAN CORPUSCULAR HGB CONC 31 G/DL (32-36); MEAN CORPUSCULAR VOLUME 92 FL (80-99); MEAN PLATELET VOLUME 10.3 FL (7.4-10.4); MONOCYTES # (AUTO) 0.6 X 10^3 (0.0-1.0); MONOCYTES % (AUTO) 5 % (0-12); NEUTROPHILS # (AUTO) 10.2 X 10^3 (1.8-7.8); NEUTROPHILS % (AUTO) 87 % (42-75); PLATELET COUNT 232 10^3/uL (130-400); RED CELL DISTRIBUTION WIDTH 15.1 % (10.0-14.5); WHITE BLOOD COUNT 11.8 10^3/uL (4.3-11.0)
[2019-06-06 05:59] LABS: ALANINE AMINOTRANSFERASE 25 U/L (0-55); ALBUMIN 2.6 GM/DL (3.2-4.5); ALKALINE PHOSPHATASE 42 U/L (40-136); BILIRUBIN,TOTAL 0.3 MG/DL (0.1-1.0); BUN/CREATININE RATIO 30; CALCIUM 8.1 MG/DL (8.5-10.1); CARBON DIOXIDE 31 MMOL/L (21-32); CHLORIDE 103 MMOL/L (98-107); GFR ESTIMATED > 60; GLUCOSE 165 MG/DL (70-105); POTASSIUM 3.9 MMOL/L (3.6-5.0); SODIUM 140 MMOL/L (135-145); TOTAL PROTEIN 4.9 GM/DL (6.4-8.2)
[2019-06-06] MEDS: ENOXAPARIN 40 MG/0.4 ML (LOVENOX) SYR SC SCH (06:29)
--- NOTE | 2019-06-06 06:40 | Pulmonary Progress Note ---
Subjective Date Seen by a Provider: Jun 06, 2019 Time Seen by a Provider: 06:39 Subjective/Events-last exam Pt appears to be doing better. Sepsis Event Evaluation Height, Weight, BMI Height: '" Weight: lbs. oz. kg; 27.00 BMI Method: Exam Exam Vital Signs Date Time Temp Pulse Resp B/P (MAP) Pulse Ox O2 Delivery O2 Flow Rate FiO2 06/06/19 04:00 36.4 76 19 169/77 (107) 98 NIV Bilevel 50.00 06/06/19 02:33 84 35 90 50.00 06/06/19 01:00 72 06/06/19 00:07 36.6 72 28 198/76 (116) 99 NIV Bilevel 50.00 06/05/19 22:09 78 26 90 50.00 06/05/19 20:27 36.4 74 24 178/87 (117) 96 High Flow N/C 4.00 06/05/19 20:00 High Flow N/C 5.00 06/05/19 19:00 80 06/05/19 18:31 93 High Flow N/C 5.00 06/05/19 16:23 36.6 74 22 176/86 (116) 96 High Flow N/C 4.00 06/05/19 13:41 94 High Flow N/C 5.00 06/05/19 12:17 80 06/05/19 12:00 37.0 80 20 161/74 (103) 92 High Flow N/C 5.00 06/05/19 08:00 NIV Bilevel 30.00 06/05/19 08:00 37.1 82 22 176/88 (117) 96 NIV Bilevel 30.00 06/05/19 07:00 82 I & O 06/06/19 07:00 Intake Total 780 ml Output Total 1275 ml Balance -495 ml Height & Weight Height: '" Weight: lbs. oz. kg; 27.00 BMI Method: General Appearance: Mild Distress (respiratory) HEENT: PERRL/EOMI Neck: Normal Inspection, Supple Respiratory: Chest Non Tender; No Accessory Muscle Use; Decreased Breath Sounds (bases) Cardiovascular: Regular Rate, Rhythm, No Edema Capillary Refill: Less Than 3 Seconds Gastrointestinal: normal bowel sounds, non tender, soft, other (Ventral hernia) Extremity: Normal Inspection, Non Tender, No Pedal Edema Neurologic/Psychiatric: Other (asleep) Skin: Normal Color, Warm/Dry Results Lab Laboratory Tests 06/04/19 16:23 06/05/19 05:00 06/06/19 05:27 Assessment/Plan Assessment/Plan Acute respiratory failure with pneumonia with Severe sepsis - improving -currenlty on rocephin - PT/OT -duoneb and solumedrol -[place] cultures pending -influenza is negative -Will give lasix 40mg x 1. MRSA is negative - D.c Vanco -COVID is neg Hypernatremia -Start D5 W Anemia -Monitor KAILEY FROST DO Jun 06, 2019 06:40
[2019-06-06] MEDS ORDERED: FUROSEMIDE 40 MG/4 ML INJ (LASIX) IVP NR (06:45)
[2019-06-06] MEDS: RT-BUDESONIDE NEBS 0.5 MG/2ML (PULMICORT) AMP INH SCH (06:53)
[2019-06-06 07:35] VITALS: BP 166/85
[2019-06-06] MEDS: PANTOPRAZOLE 40 MG (PROTONIX) VIAL IV SCH (08:29)
[2019-06-06] MEDS: methylPREDNISolone 40 MG/ML (Solu-MEDROL) VIAL IV SCH (08:29)
[2019-06-06] MEDS: MICONAZOLE 2% POWDER (DESENEX AF) 90 GM TOP SCH (08:31)
--- NOTE | 2019-06-06 09:08 | NUR ---
Visited with patient this morning. He is on Hi-flow NC. The nasal cannula was out of his nose when I entered the room et the tubing was kinked too. This was corrected and I visited with Ones about trying to not pull on all of his tubes because he needed them right now. He said "okay". His voice quality is a whisper so it is very hard to understand him but I was able to make out that he wants to go home and that he wants watermelon to eat. The cafeteria does not have any watermelon in stock but his breakfast is here. His primary care nurse and I pulled him up in bed using maximum assistance of 2. We are readying him to eat his breakfast with total assist x1 staff member feeding him his food. He was able to take a drink of water using his straw. He seems to be doing a little bit better but he is still very weak even when he is trying to speak.
--- NOTE | 2019-06-06 10:04 | Physical Therapy Daily Note ---
PT Daily Note-Current Subjective Patient is in bed and very listless with minimal responsiveness. Mental Status Patient Orientation: Listless Attachments: Oxygen (1), Roberts Catheter Transfers SCALE: Activities may be completed with or without assistive devices. 1-Khmijgaolf-gvybric completes the activity by him/herself with no assistance from a helper. 5-Set-up or Clean-up Assistance-helper sets up or cleans up; patient completes activity. [place] assists only prior to or following the activity. 4-Supervision or Touching Assistance-helper provides verbal cues and/or touching/steadying and/or contact guard assistance as patient completes activity. Assistance may be provided throughout the activity or intermittently. 3-Partial/Moderate Assistance-helper does LESS THAN HALF the effort. [place] lifts, holds or supports trunk or limbs, but provides less than half the effort. 2-Substantial/Maximal Assistance-helper does MORE THAN HALF the effort. [place] lifts or holds trunk or limbs and provides more than half the effort. 7-Gdznxfbpu-trskjz does ALL the effort. Patient does none of the effort to complete the activity. Or, the assistance of 2 or more helpers is required for the patient to complete the activity. If activity was not attempted, code reason: 7-Patient Refused. 9-Not Applicable-not attempted and the patient did not perform the activity before the current illness, exacerbation or injury. 10-Not Attempted due to Environmental Limitations-(lack of equipment, weather restraints, etc.). 88-Not Attempted due to Medical Conditions or Safety Concerns. Roll Left & Right (QC): 1 (x 2) rolling side to side with TECHNICAL DELIVERY MANAGER to cleanse and change patient and bedding Exercises Supine Ex: Ankle pumps, Heel Slides, Straight leg raise, Hip abd/add Supine Reps: 15 (bilaterally PROM) Assessment Patient tolerated treatment and is repositioned in bed dependent assist x 2. PT Shelter Goals Shelter Goals PT Wire Coating Operator Metal Goals Time Frame: June 21, 2019 Roll Left & Right (QC): 4 Sit to Lying (QC): 4 Lying-Sitting on Side/Bed(QC): 4 Sit to Stand (QC): 3 Chair/Idn-zy-Croxn Xfer(QC): 3 Toilet Transfer (QC): 3 Does the Patient Walk: No and Walking Goal IS indicated Walk 10 feet (QC): 3 PT Plan Treatment/Plan Treatment Plan: Continue Plan of Care Treatment Plan: Bed Mobility, Education, Functional Activity Joe, Functional Strength, Gait, Safety, Therapeutic Exercise, Transfers Treatment Duration: June 21, 2019 Frequency: 6 times per week Estimated Hrs Per Day: .5 hour per day Patient and/or Family Agrees t: Yes Time/GCodes Time In: 920 Time Out: 930 Total Billed Treatment Time: 10 Total Billed Treatment 1 visit FA 10 min BRI SHERWOOD PT Jun 06, 2019 10:04
[2019-06-06] MEDS: cefTRIAXone 1,000 MG/SWFI 10 ML IV PUSH IV SCH ×2 (11:03)
--- NOTE | 2019-06-06 11:03 | Occupational Ther Daily Note ---
OT Current Status-Daily Note Subjective Spoke with RN who states pt is okay for therapy this morning. Pt resting in bed with eyes closed. Pt opens eyes and shakes head yes/no during treatment, but has minimal responses. Pt shakes head no when asked about pain. ADL-Treatment Therapy Code Descriptions/Definitions Functional [place] Measure: 0=Not Assessed/NA 4=Minimal Assistance 1=Total Assistance 5=Supervision or Setup 2=Maximal Assistance 6=Modified [place] 3=Moderate Assistance 7=Complete IndependenceSCALE: Activities may be completed with or without assistive devices. 7-Aiccnuedaf-moqcvvs completes the activity by him/herself with no assistance from a helper. 5-Set-up or Clean-up Assistance-helper sets up or cleans up; patient completes activity. [place] assists only prior to or following the activity. 4-Supervision or Touching Assistance-helper provides verbal cues and/or touching/steadying and/or contact guard assistance as patient completes activity. Assistance may be provided throughout the activity or intermittently. 3-Partial/Moderate Assistance-helper does LESS THAN HALF the effort. [place] lifts, holds or supports trunk or limbs, but provides less than half the effort. 2-Substantial/Maximal Assistance-helper does MORE THAN HALF the effort. [place] lifts or holds trunk or limbs and provides more than half the effort. 8-Oqdbqbixp-mfrniu does ALL the effort. Patient does none of the effort to complete the activity. Or, the assistance of 2 or more helpers is required for the patient to complete the activity. If activity was not attempted, code reason: 7-Patient Refused. 9-Not Applicable-not attempted and the patient did not perform the activity before the current illness, exacerbation or injury. 10-Not Attempted due to Environmental Limitations-(lack of equipment, weather restraints, etc.). 88-Not Attempted due to Medical Conditions or Safety Concerns. Gentle ROM completed bilateral UE to increase ROM and strength needed for functional tasks. PROM completed bilateral UE at all joints. Pt able to squeeze with bilateral hands and assists minimally with elbow flexion with verbal cues for participation. Pt opens eyes occasionally, but unable to maintain. Pt resting in bed with needs met after session. OT Short Term Goals Short Term Goals Eatin Oral hygiene: 5 Upper body dressin OT [facility] Goals Regional Manager Goals Time Frame: Jun 09, 2019 Eating (QC): 6 Oral Hygiene (QC): 6 Toileting Hygiene (QC): 3 Shower/Bathe Self (QC): 3 Upper Body Dressing (QC): 5 Lower Body Dressing (QC): 5 On/Off Footwear (QC): 4 Additional Goals: 1-Demonstrate ADL Tasks, 2-Verbalize Understanding, 3- ImproveStrength/Joe 1=Demonstrate adherence to instructed precautions during ADL tasks. 2=Patient will verbalize/demonstrate understanding of assistive devices/modifications for ADL. 3=Patient will improve strength/tolerance for activity to enable patient to perform ADL's. OT Education/Plan Discharge Recommendations Plan/Recommendations: Continue POC Treatment Plan/Plan of Care Patient would benefit from OT for education, treatment and training to promote independence in ADL's, mobility, safety and/or upper extremity function for ADL's. Plan of Care: ADL Retraining, Functional Mobility, UE Funct Exercise/Act, W/C Management Training Treatment Duration: Jun 09, 2019 Frequency: 5 times per week Estimated Hrs Per Day: .25 hour per day Agreement: Yes Rehab Potential: Guarded Time/GCodes Start Time: 10:41 Stop Time: 10:51 Total Time Billed (hr/min): 10 Billed Treatment Time 1 visit, EX(10minutes) KEO CHUNG OT Jun 06, 2019 11:03
[2019-06-06 11:51] VITALS: BP 157/78
--- NOTE | 2019-06-06 12:09 | NUR ---
CM/SS follow up. CM/SS spoke wit Mary last evening 06/04 to discuss discharge plans. She verbalized that she had spoken with Sam [facility] at [facility] and wanted him to be transferred over for skilled placement. Mary stated that she is going to have Sam contact this SS to discuss case. Sam contacted this SS. CM/SS informed him of the patients oxygen need, BiPAP, and the need for max assist. He verbalized understanding. CM/SS faxed referral to [facility]. Mary contacted this ss around 8:00 a.m. 06/05 deciding she did not want patient to go skilled and wants to take him home. CM/SS discussed with the patient home health vs hospice again to help Mary make a decision. CM/SS asked Dr. Reynolds to contact, Mary. He verbalized understanding. Dr. Reynolds informed this SS that Mary would like patient to go home with [facility]. Palliative Care NurseArturo contacted [facility] and sent referral. A Non-emergent EMS will be needed for patient transport. CM/SS will fill out form and provide to the Nurse. CM/SS contacted Mary to verify address and let her know that [facility] would be contacting her for equipment needs. No other needs will follow until discharge.
--- NOTE | 2019-06-06 12:18 | Progress Note ---
Subjective Subjective Date Seen by Provider: Jun 06, 2019 Time Seen by Provider: 11:57 83 yo M on 5L oxygen- doing better- he wanted watermelon this morning but cafeteria did not have any. Review of Systems ROS Unable to Obtain: asleep but easy to wake up. General: No Chills, No Night Sweats HEENT: No Head Aches, No Visual Changes Pulmonary: No Dyspnea; Cough Cardiovascular: No: Chest Pain, Palpitations Gastrointestinal: No: Nausea, Vomiting Genitourinary: No Dysuria, No Frequency Musculoskeletal: No: neck pain Neurological: Weakness All Other Systems Reviewed All Other Systems Reviewed: Yes Objective Exam Vital Signs Vital Signs - First Documented 05/31/19 05/31/19 05/31/19 00:00 03:37 04:15 Temp 36.7 Pulse 95 Resp 23 B/P (MAP) 112/56 (74) Pulse Ox 93 O2 Delivery Mechanical Ventilator O2 Flow Rate 40.00 FiO2 40 Capillary Refill : Less Than 3 SecondsLess Than 3 Seconds General Appearance: Mild Distress (respiratory) Eyes: Bilateral Eye PERRL, Bilateral Eye Other (Bilateral mattering mild) HEENT: PERRL/EOMI Neck: Normal Inspection, Supple Respiratory: Chest Non Tender; No Accessory Muscle Use; Decreased Breath Sounds (bases) Cardiovascular: Regular Rate, Rhythm, No Edema Gastrointestinal: Normal Bowel Sounds, Soft Rectal: Deferred Extremity: Normal Inspection, Non Tender, No Pedal Edema Neurologic/Psychiatric: Other (asleep) Skin: Normal Color, Warm/Dry Results Lab Laboratory Tests 06/06/19 05:27: White Blood Count 11.8H, Red Blood Count 3.47L, Hemoglobin 9.8L, Hematocrit 32L, Mean Corpuscular Volume 92, Mean Corpuscular Hemoglobin 28, Mean Corpuscular Hemoglobin Concent 31L, Red Cell Distribution Width 15.1H, Platelet Count 232, Mean Platelet Volume 10.3, Neutrophils (%) (Auto) 87H, Lymphocytes (%) (Auto) 8L , Monocytes (%) (Auto) 5, Eosinophils (%) (Auto) 0, Basophils (%) (Auto) 0, Neutrophils # (Auto) 10.2H, Lymphocytes # (Auto) 1.0, Monocytes # (Auto) 0.6, Eosinophils # (Auto) 0.0, Basophils # (Auto) 0.0, Sodium Level 140, Potassium Level 3.9, Chloride Level 103, Carbon Dioxide Level 31, Anion Gap 6, Blood Urea Nitrogen 21H, Creatinine 0.70, Estimat Glomerular Filtration Rate > 60, BUN/Creatinine Ratio 30, Glucose Level 165H, Calcium Level 8.1L, Corrected Calcium 9.2, Total Bilirubin 0.3, Aspartate Amino Transf (AST/SGOT) 18, Alanine Aminotransferase (ALT/SGPT) 25, Alkaline Phosphatase 42, Total Protein 4.9L, Albumin 2.6L Microbiology 05/30/19 Gram Stain - Final, Complete 05/30/19 Sputum Culture - Final, Complete Usual upper respiratory trell Haemophilus influenza 05/30/19 Urine Culture - Final, Complete NO GROWTH 05/30/19 Blood Culture - Final, Complete Haemophilus influenza Assessment/Plan Assessment/Plan Assessment and Plan 05/31/19 weaning trial started but rr increased and oxygen saturation declined he was placed back on AC and sedated OG tube is bringing up bloody secretions -lovenox held. Pt is on PPI BID IV monitoring Hgb. Continue Vanc/zosyn/azithromycin- 1 blood culture is going gram neg- sent o ff to [facility] blood pressure is better- pressors are off. -steroids started for his COPD and respiratory failure- but steroids will not be good for his GI bleed. Dr. Ferreira consulted. 06/01/19- extubated. No more blood per OG tube -blood cultures growing gram neg hemophilus species beta lactamase + he is on zosyn which appears to be working- for the pneumonia and bacteremia. If we need better coverage meropenem would be what we switch to. -bedside swallow test 06/02/19- hypernatremia starting IVF 02/13 NS changed ceftriaxone as it will treat both his H.infl pneumonia and bacteremia -need to get him back to nasal cannula (baseline is 2-3 L oxygen NC) and then d/c to home. 06/03/19- Na a little improved with IVF. He is drinking water without issue and eating. -Inpatient rehab to evaluate him other possible discharge plans include back to health and rehab; daughter also voiced she planned on taking him home. -need to get him closer to his baseline oxygen requirement of 2-3L. -will d/c his IVF since he taking po. -pneumonia, bacteremia (H. influ) covered with rocephin. 06/04/19 BNP elevated. Diuresing. Still belly breathing and using accessory muscles. Respiratory status has improved though from admission he has went from intubated to biPAP to HFNC and this AM he was on 5L oxygen via NC. on methyprednisolone 40mg BID 06/05/19- working on discharge planning- could go to [place] but daugther of patient not agreeable. She would like to take him home; this would not be a good idea as patient is max assist. -continue steroids, respiratory care, antibiotics. on D5W for hypernatremia. Dispo: improved but guarded. Problems: (1) Pneumonia Qualifiers: (2) Acute on chronic respiratory failure with hypoxia and hypercapnia (3) Acute kidney injury Assessment & Plan: improved (4) COPD with acute lower respiratory infection (5) GI bleed Qualifiers: Assessment & Plan: trending hgb- does not appear to be a brisk bleed- could be gastritis along with irritation from placement of OG. (6) Bacteremia due to Gram-negative bacteria (7) Acute hypernatremia Clinical Quality Measures DVT/VTE Risk/Contraindication: Risk Factor Score Per Nursin RFS Level Per Nursing on Admit: 4+=Very High HARRY TRUJILLO MD Jun 06, 2019 12:18
[2019-06-06] MEDS ORDERED: CEFD300C3 PO (12:39)
[2019-06-06] MEDS ORDERED: DEXA4TAB PO (12:39)
--- NOTE | 2019-06-06 12:51 | Discharge Summary ---
Discharge Summary Hospital Course Was the Problem List Reviewed?: Yes Problems/Dx: (1) Pneumonia Status: Acute Qualifiers: (2) Acute on chronic respiratory failure with hypoxia and hypercapnia Status: Acute (3) Acute kidney injury Status: Resolved (4) COPD with acute lower respiratory infection Status: Acute (5) GI bleed Status: Resolved Qualifiers: (6) Bacteremia due to Gram-negative bacteria Status: Acute (7) Acute hypernatremia Status: Resolved Hospital Course Date of Admission: May 30, 2019 at 01:30 Admission Diagnosis : (1) Pneumonia Status: Acute Qualifiers: (2) Acute on chronic respiratory failure with hypoxia and hypercapnia Status: Acute (3) Acute kidney injury Status: Acute (4) COPD with acute lower respiratory infection Status: Acute (5) GI bleed Qualifiers: (6) Bacteremia due to Gram-negative bacteria (7) Acute hypernatremia Family Physician/Provider: Bobby Celestin DO Date of Discharge: 06/06/19 Discharge Diagnosis: (1) Pneumonia Status: Acute Qualifiers: (2) Acute on chronic respiratory failure with hypoxia and hypercapnia Status: Acute (3) Acute kidney injury Status: Acute (4) COPD with acute lower respiratory infection Status: Acute (5) GI bleed- resolved (6) Bacteremia due to Gram-negative bacteria (7) Acute hypernatremia- resolved Hospital Course: 83 yo male admitted for acute on chronic respiratory failure. 05/31/19 weaning trial started but rr increased and oxygen saturation declined he was placed back on AC and sedated OG tube is bringing up bloody secretions -lovenox held. Pt is on PPI BID IV monitoring Hgb. Continue Vanc/zosyn/azithromycin- 1 blood culture is going gram neg- sent off to [facility] blood pressure is better- pressors are off. -steroids started for his COPD and respiratory failure- but steroids will not be good for his GI bleed. Dr. Ferreira consulted. 06/01/19- extubated. No more blood per OG tube -blood cultures growing gram neg hemophilus species beta lactamase + he is on zosyn which appears to be working- for the pneumonia and bacteremia. If we need better coverage meropenem would be what we switch to. -bedside swallow test 06/02/19- hypernatremia starting IVF 02/13 NS changed ceftriaxone as it will treat both his H.infl pneumonia and bacteremia -need to get him back to nasal cannula (baseline is 2-3 L oxygen NC) and then d/c to home. 06/03/19- Na a little improved with IVF. He is drinking water without issue and eating. -Inpatient rehab to evaluate him other possible discharge plans include back to health and rehab; daughter also voiced she planned on taking him home. -need to get him closer to his baseline oxygen requirement of 2-3L. -will d/c his IVF since he taking po. -pneumonia, bacteremia (H. influ) covered with rocephin. 06/04/19 BNP elevated. Diuresing. Still belly breathing and using accessory muscles. Respiratory status has improved though from admission he has went from intubated to biPAP to HFNC and this AM he was on 5L oxygen via NC. on methyprednisolone 40mg BID 06/05/19- working on discharge planning- could go to [place] but daugther of patient not agreeable. She would like to take him home; this would not be a good idea as patient is max assist. -continue steroids, respiratory care, antibiotics. on D5W for hypernatremia- which brought his sodium level down to 140 06/06/19- discharged to home with [facility]. Labs and Pending Lab Test: Laboratory Tests 06/06/19 05:27: White Blood Count 11.8H, Red Blood Count 3.47L, Hemoglobin 9.8L, Hematocrit 32L, Mean Corpuscular Volume 92, Mean Corpuscular Hemoglobin 28, Mean Corpuscular Hemoglobin Concent 31L, Red Cell Distribution Width 15.1H, Platelet Count 232, Mean Platelet Volume 10.3, Neutrophils (%) (Auto) 87H, Lymphocytes (%) (Auto) 8L , Monocytes (%) (Auto) 5, Eosinophils (%) (Auto) 0, Basophils (%) (Auto) 0, Neutrophils # (Auto) 10.2H, Lymphocytes # (Auto) 1.0, Monocytes # (Auto) 0.6, Eosinophils # (Auto) 0.0, Basophils # (Auto) 0.0, Sodium Level 140, Potassium Level 3.9, Chloride Level 103, Carbon Dioxide Level 31, Anion Gap 6, Blood Urea Nitrogen 21H, Creatinine 0.70, Estimat Glomerular Filtration Rate > 60, BUN/Creatinine Ratio 30, Glucose Level 165H, Calcium Level 8.1L, Corrected Calcium 9.2, Total Bilirubin 0.3, Aspartate Amino Transf (AST/SGOT) 18, Alanine Aminotransferase (ALT/SGPT) 25, Alkaline Phosphatase 42, Total Protein 4.9L, Albumin 2.6L Microbiology 05/30/19 Gram Stain - Final, Complete 05/30/19 Sputum Culture - Final, Complete Usual upper respiratory trell Haemophilus influenza 05/30/19 Urine Culture - Final, Complete NO GROWTH 05/30/19 Blood Culture - Final, Complete Haemophilus influenza Home Meds Active Cefdinir 300 Mg Capsule 300 Mg PO BID 7 Days Dexamethasone 4 Mg Tablet 8 Mg PO DAILY 3 Days Reported Metoprolol Succinate 25 Mg Tab.er.24h 25 Mg PO DAILY HOLD FOR SBP LESS THAN 110-60 OR AP LESS THEN 60 BPM Terazosin HCl 2 Mg Capsule 2 Mg PO HS Potassium Chloride 20 Meq Tablet.er 20 Meq PO DAILY Protonix (Pantoprazole Sodium) 40 Mg Tablet.dr 40 Mg PO DAILY Lisinopril 10 Mg Tablet 10 Mg PO DAILY Iprat-Albut 0.5-3(2.5) mg/3 ml (Ipratropium/Albuterol Sulfate) 3 Ml Ampul.neb 3 Ml IH Q12H PRN Colace (Docusate Sodium) 100 Mg Capsule 100 Mg PO DAILY PRN Vitamin D3 (Cholecalciferol (Vitamin D3)) 25 Mcg Capsule 25 Mcg PO DAILY Bisacodyl 10 Mg Supp.rect 10 Mg RC DAILY PRN Aspirin EC (Aspirin) 81 Mg Tablet.dr 81 Mg PO DAILY Albuterol Sulfate 2.5 Mg/0.5 Ml Vial.neb 2.5 Mg INH Q4H Albuterol Sulfate 2.5 Mg/0.5 Ml Vial.neb 2.5 Mg INH Q6H Advair 250-50 Diskus (Fluticasone/Salmeterol) 1 Each Blst.w.dev 1 Each IH BID RINSE MOUTH AFTER EACH USE Tylenol Extra Strength (Acetaminophen) 500 Mg Tablet 500-1,000 Mg PO Q6H PRN Assessment/Pt Instructions -complete 7 days of cefdinir to treat his infections. -dexamethasone for 3 more days -furosemide daily to make him urinate off excess water. -[facility] consulted -Patient has family that will be with him 24hours/day and care for him. -His respiratory status may worsen but at least family will be present which will be better for Ones and family. -Hospice care to be directed by [facility] director or Dr. Celestin Discharge Planning: >30 minutes discharge planning Discharge Instructions Discharge Diet: Other Diet (Dysphagia II ) Activity as Tolerated: Yes Discharge Physical Examination Vital Signs Vital Signs Date Time Temp Pulse Resp B/P (MAP) Pulse Ox O2 Delivery O2 Flow Rate FiO2 06/06/19 11:51 36.0 78 25 157/78 (104) 97 High Flow N/C 5.00 06/03/19 10:59 30 General Appearance: No Apparent Distress HEENT: PERRL/EOMI Respiratory: Chest Non Tender, Decreased Breath Sounds Cardiovascular: Regular Rate, Rhythm Gastrointestinal: Normal Bowel Sounds, Soft Extremity: Non Tender Skin: Warm/Dry Neurologic/Psychiatric: Alert Allergies: Coded Allergies: No Known Drug Allergies (Unverified , 04/25/19) Discharge Summary Date of Admission May 30, 2019 at 01:30 Date of Discharge June 06, 2019 Admission Diagnosis Septic shock Comfort Measures/ End of Life Care: Hospice Care (Home) ([facility]) Advance Care discuss with: family member (s) (Mary Pascual) Discharge Diagnosis (1) Pneumonia Status: Acute Qualifiers: (2) Acute on chronic respiratory failure with hypoxia and hypercapnia Status: Acute (3) Acute kidney injury Status: Resolved Assessment & Plan: improved (4) COPD with acute lower respiratory infection Status: Acute (5) GI bleed Status: Resolved Assessment & Plan: trending hgb- does not appear to be a brisk bleed- could be gastritis along with irritation from placement of OG. Qualifiers: (6) Bacteremia due to Gram-negative bacteria Status: Acute Assessment & Plan: will continue cefdinir for 7 more days. (7) Acute hypernatremia Status: Resolved Clinical Quality Measures DVT/VTE Risk/Contraindication: Risk Factor Score Per Nursin RFS Level Per Nursing on Admit: 4+=Very High Pneumonia: Pseudomonal Risk: COPD HARRY TRUJILLO MD Jun 06, 2019 12:49
[2019-06-06] MEDS ORDERED: FURO40TA4 PO (12:52)
--- NOTE | 2019-06-06 17:49 | NUR ---
Patient discharged home with home health services. Transported by EMS. Discharge summary and patient belongings given to EMS.
== END 2019-06-06 17:52 | disposition hospice, home (50) | DRG 871 ==
LOC: EDUNIT# 00:44 → ER 00:47 → ICU 01:30 → ER 03:13 → 4TH 06-02 15:00
PROVIDERS: ADMIT Internal Medicine; ATTEND Internal Medicine
PROC: 5A1945Z Respiratory Ventilation, 24-96 Consecutive Hours (ICD-10-PCS; principal; 2019-05-30)
PROC: 0BH17EZ Insertion of Endotracheal Airway into Trachea, Via Natural or Artificial Opening (ICD-10-PCS; 2019-05-30)
DX: A41.3 Sepsis due to Hemophilus influenzae (principal); R65.21 Severe sepsis with septic shock; J14 Pneumonia due to Hemophilus influenzae; J96.22 Acute and chronic respiratory failure with hypercapnia; J96.21 Acute and chronic respiratory failure with hypoxia; N17.9 Acute kidney failure, unspecified; J44.1 Chronic obstructive pulmonary disease with (acute) exacerbation; J44.0 Chronic obstructive pulmonary disease with (acute) lower respiratory infection; S12.110A Anterior displaced Type II dens fracture, initial encounter for closed fracture; K29.71 Gastritis, unspecified, with bleeding; E87.0 Hyperosmolality and hypernatremia; I10 Essential (primary) hypertension; E86.0 Dehydration; K21.9 Gastro-esophageal reflux disease without esophagitis; E87.5 Hyperkalemia; D64.9 Anemia, unspecified; M19.91 Primary osteoarthritis, unspecified site; M48.00 Spinal stenosis, site unspecified; R54 Age-related physical debility; Z99.81 Dependence on supplemental oxygen; Z85.828 Personal history of other malignant neoplasm of skin; W19.XXXA Unspecified fall, initial encounter
CPT/HCPCS: 31500; 36415; 36600; 51702; 71045; 71275; 80048; 80053; 80069; 81000; 82805; 82962; 83605; 83615; 83735; 83880; 84100; 84145; 85007; 85014; 85018; 85025; 85027; 85379; 85610; 85652; 85730; 86141; 87040; 87070; 87081; 87088; 87185; 87186; 87205; 87631; 87635; 87804; 94002; 94003; 94640; 94660; 94760; 94799; 96361; 96365; 96366; 96375

== ENCOUNTER → 2019-07-17 | Outpatient (CLI) | payer OTHER, MEDICARE ==
[~2019-07-17] MED LIST: ACET-2267 PO; ALB0.5V INH; ASPI-983 PO; AZIT250T12 PO; BISA10SU8 RC; CEFD300C3 PO; CHOL100048 PO; DEXA4TAB PO; DOCU-143 PO; FLUT1DIS26 IH; FURO-124 PO; FURO40TA4 PO; GUAI120013 PO; IPRA3AMP31 IH; LISI10TA2 PO; MTP25TSR PO; PANT40TA2 PO; POTA-51 PO; TERA2CAP4 PO; TRAM50TA3 PO
[2019-07-17 10:47] LABS: BILIRUBIN,URINE NEGATIVE (NEGATIVE); CLARITY,URINE CLEAR; COLOR,URINE YELLOW; GLUCOSE, URINE (UA) NEGATIVE (NEGATIVE); KETONES,URINE NEGATIVE (NEGATIVE); LEUKOCYTE ESTERASE ,URINE 1+ (NEGATIVE); NITRITE,URINE NEGATIVE (NEGATIVE); PH,URINE 7.5 (5-9); PROTEIN,URINE NEGATIVE (NEGATIVE)
[2019-07-17 11:14] LABS: BACTERIA,URINE TRACE /HPF; RBC,URINE RARE /HPF
[2019-07-17 11:15] LABS: AMORPHOUS SEDIMENT,UR RARE AMOR PHOSPHATE /LPF
== END ==
LOC: HOSHH 10:42
PROVIDERS: ATTEND Family Medicine
DX: J44.9 Chronic obstructive pulmonary disease, unspecified (principal); I10 Essential (primary) hypertension; R30.0 Dysuria
CPT/HCPCS: 81000; 87088

== ENCOUNTER → 2019-08-05 | Outpatient (CLI) | payer OTHER, MEDICARE ==
[2019-08-05 12:41] LABS: CHLORIDE 98 MMOL/L (98-107); POTASSIUM 4.5 MMOL/L (3.6-5.0); SODIUM 138 MMOL/L (135-145)
[2019-08-05 12:42] LABS: CALCIUM 8.2 MG/DL (8.5-10.1); GLUCOSE 90 MG/DL (70-105)
[2019-08-05 12:44] LABS: CARBON DIOXIDE 34 MMOL/L (21-32)
[2019-08-05 12:46] LABS: CREATININE SERUM 0.72 MG/DL (0.60-1.30); GFR ESTIMATED > 60
[2019-08-05 12:47] LABS: BUN/CREATININE RATIO 11
== END ==
LOC: HOSHH 12:25
PROVIDERS: ATTEND Family Medicine
DX: J44.9 Chronic obstructive pulmonary disease, unspecified (principal); Z79.899 Other long term (current) drug therapy
CPT/HCPCS: 80048; 83880